=== PATIENT | female | born 1950 | race Caucasian/White ===

== ENCOUNTER 2019-03-13 18:06 | Inpatient (IN) | payer MEDICARE ==
--- NOTE | 2019-03-13 18:57 | ER Document Report ---
ED General - General Stated Complaint: FALL/BACK PAIN Time Seen by Provider: 03/13/19 18:29 - HPI Notes: 69-year-old female who has not seen a doctor in over 40 years called EMS today because she had fallen at home and she reports that she has had frequent falls recently. She was smoking in excess of a pack per day up until about a month ago when she stopped smoking. She is been experiencing generalized edema and increasing thirst. She generally does not feel well and was having some difficulty breathing today as well. - Related Data Allergies/Adverse Reactions: Iodinated Contrast Media Allergy (Verified 03/13/19 22:44) Past Medical History - General Information source: Patient, Emergency Med Personnel - Social History Smoking Status: Former Smoker Frequency of alcohol use: None Drug Abuse: None Lives with: Friend Family History: None, Reviewed & Not Pertinent - Medical History Medical History: Negative Past Surgical History: Reports: Hx Hysterectomy, Hx Tubal Ligation Review of Systems - Review of Systems Notes: Constitutional: Negative for fever. HENT: Negative for sore throat. Eyes: Negative for visual changes. Cardiovascular: Negative for chest pain. Respiratory: Shortness of breath. No sputum production. Gastrointestinal: Negative for abdominal pain, vomiting or diarrhea. Genitourinary: Reports urinary frequency. Negative for dysuria. Musculoskeletal: Low back pain secondary to recurrent falls. Skin: Negative for rash. Neurological: Negative for headaches, weakness or numbness. 10 point ROS negative except as marked above and in HPI. Physical Exam - Vital signs Vitals: Temp Resp Pulse Ox 97.6 F 16 86 L 03/13/19 18:26 03/13/19 18:26 03/13/19 18:26 Notes: GENERAL: Chronically ill appearing in no acute distress. SKIN: Generalized flushing. Stasis dermatitis over both lower legs. Old abrasions of both knees. HEAD: Normocephalic atraumatic. EYES: PERRLA. Conjunctivae and sclerae clear. EARS: CANALS AND TMS CLEAR. NOSE: CLEAR. MOUTH: Moist mucosa. Edentulous with dentures. No stridor or edema. No droo ling. NECK: Supple. No masses or thyromegaly. No adenopathy. Carotids 2+ without bruits. No JVD. BACK: Moderate dorsal kyphosis. Symmetrical with tenderness lumbar area. No step-off or crepitus. CHEST: Increased AP diameter of the chest. Respirations unlabored. Breath sounds clear and symmetrical. HEART: Regular rhythm. No murmur gallop or rub. ABDOMEN: Soft nontender without masses, organomegaly or rebound. Bowel sounds normally active. No bruits. GENITALIA: Deferred. EXTREMITIES: 3+ edema both lower legs with pitting and chronic venous stasis changes. No calf tenderness. Cap refill less than 1.5 seconds. Dorsalis pedis and posterior tibial pulses 2 + and symmetrical. NEUROLOGICAL: GCS 15. Alert and oriented x3. Fluent speech. Cranial nerves II through XII intact. Sensorimotor and cerebellar normal. Normal tone. Course - Vital Signs Vital signs: Temp Pulse Resp BP Pulse Ox 97.6 F 16 134/77 H 95 03/14/19 00:00 03/14/19 01:30 03/14/19 01:00 03/14/19 01:30 - Laboratory Result Diagrams: 03/13/19 20:00 03/13/19 18:30 Laboratory results interpreted by me: 03/13/19 03/13/19 03/13/19 18:30 18:30 18:30 Hgb Hct MCV MCH RDW Plt Count Seg Neuts % (Manual) Lymphocytes % (Manual) Abs Lymphs (Manual) D-Dimer Carbonic Acid ABG pCO2 ABG pO2 ABG HCO3 ABG Total CO2 Potassium 5.4 H BUN 51 H Est GFR ( Amer) 52 L Est GFR (MDRD) Non-Af 43 L Total Bilirubin 1.7 H Direct Bilirubin 0.8 H CK-MB (CK-2) 7.00 H NT-Pro-B Natriuret Pep 22978 H Urine Protein 100 H Urine Ketones TRACE H Urine Bilirubin SMALL H Urine Urobilinogen 4.0 H Ur Leukocyte Esterase TRACE H 03/13/19 03/13/19 03/13/19 18:30 20:00 20:50 Hgb 16.6 H Hct 50.8 H MCV 104 H MCH 33.9 H RDW 15.8 H Plt Count 123 L Seg Neuts % (Manual) 90 H Lymphocytes % (Manual) 3 L Abs Lymphs (Manual) 0.3 L D-Dimer 5.35 H Carbonic Acid 1.51 H ABG pCO2 50.1 H ABG pO2 78.2 L ABG HCO3 27.7 H ABG Total CO2 29.2 H Potassium BUN Est GFR ( Amer) Est GFR (MDRD) Non-Af Total Bilirubin Direct Bilirubin CK-MB (CK-2) NT-Pro-B Natriuret Pep Urine Protein Urine Ketones Urine Bilirubin Urine Urobilinogen Ur Leukocyte Esterase - Diagnostic Test Radiology reviewed: Reports reviewed - EKG Interpretation by Me EKG shows normal: Sinus rhythm Rate: Normal Rhythm: NSR Additional EKG results interpreted by me: 03/13/19 19:04 Incomplete right bundle branch block and left posterior fascicular block. No ol d EKG for comparison. Discharge - Discharge Clinical Impression: Acute decompensated heart failure, Pneumonia, L2 compression fracture Fall Qualifiers: Encounter type: initial encounter Qualified Code(s): W19.XXXA - Unspecified fall, initial encounter Condition: Serious Disposition: ADMITTED INPATIENT Admitting Provider: Tyler (Hospitalist)
[2019-03-13 19:07] LABS: VENOUS BLOOD BASE EXCESS 0.6 mmol/L; VENOUS BLOOD HCO3 28.6 mmol/L (20-32); VENOUS BLOOD PCO2 58.2 mmHg (35-63); VENOUS BLOOD PH 7.31 (7.30-7.42)
[2019-03-13 19:10] LABS: APPEARANCE,URINE SLIGHTLY-CLOUDY; BILIRUBIN,URINE SMALL (NEGATIVE); COLOR,URINE AMBER; GLUCOSE, URINE NEGATIVE (NEGATIVE); KETONES,URINE TRACE mg/dL (NEGATIVE); LEUKOCYTE ESTERASE,URINE TRACE (NEGATIVE); NITRITE,URINE NEGATIVE (NEGATIVE); PROTEIN,URINE 100 mg/dL (NEGATIVE); URINE SPECIFIC GRAVITY 1.025
[2019-03-13 19:13] LABS: INTERNATIONAL RATION (INR) 1.09; PROTHROMBIN TIME 14.1 SEC (11.4-15.4)
[2019-03-13 19:25] LABS: ALBUMIN 3.5 g/dL (3.5-5.0); ALKALINE PHOSPHATASE 60 U/L (38-126); ANION GAP 7 (5-19); ASPARTATE AMINO TRANSFERASE 30 U/L (14-36); BILIRUBIN,DIRECT 0.8 mg/dL (0.0-0.4); BILIRUBIN,TOTAL 1.7 mg/dL (0.2-1.3); BLOOD UREA NITROGEN 51 mg/dL (7-20); CALCIUM 9.1 mg/dL (8.4-10.2); CARBON DIOXIDE 30 mmol/L (22-30); CHLORIDE 102 mmol/L (98-107); CREATINE KINASE 63 U/L (30-135); GLUCOSE 99 mg/dL (75-110); POTASSIUM 5.4 mmol/L (3.6-5.0); TOTAL PROTEIN 7.1 g/dL (6.3-8.2)
--- NOTE | 2019-03-13 19:59 | RADIOLOGY REPORT (SQ) ---
EXAM DESCRIPTION: CHEST SINGLE VIEW COMPLETED DATE/TIME: 03/13/2019 6:53 pm REASON FOR STUDY: shortness of breath COMPARISON: None. EXAM PARAMETERS: NUMBER OF VIEWS: One view. TECHNIQUE: Single frontal radiographic view of the chest acquired. RADIATION DOSE: NA LIMITATIONS: None. FINDINGS: LUNGS AND PLEURA: Bilateral pleural effusions. Left basilar consolidation. Left apical s carring -nodularity. No pneumothorax identified. MEDIASTINUM AND HILAR STRUCTURES: Age-appropriate contour. HEART AND VASCULAR STRUCTURES: Heart normal in size. Normal vasculature. BONES: No acute findings. HARDWARE: None in the chest. OTHER: No other significant finding. IMPRESSION: Bilateral pleural effusions. Left basilar consolidation. Left apical scarring -nodular ity. No pneumothorax identified. TECHNICAL DOCUMENTATION: JOB ID: [id number] [place]-72 2010 [employer]- All Rights Reserved Reading location - IP/workstation name: [email or web address]
--- NOTE | 2019-03-13 20:03 | RADIOLOGY REPORT (SQ) ---
EXAM DESCRIPTION: L SPINE WHOLE COMPLETED DATE/TIME: 03/13/2019 7:14 pm REASON FOR STUDY: injury/fall COMPARISON: None. NUMBER OF VIEWS: Five views including obliques. TECHNIQUE: AP, lateral, oblique, and sacral radiographic images acquired of the lumbar spine. LIMITATIONS: None. FINDINGS: MINERALIZATION: Osteopenia. SEGMENTATION: Normal. No transitional anatomy. ALIGNMENT: Normal. VERTEBRAE: Minimal compression of the L2 vertebral body, age undetermined. DISCS: Multilevel disc space narrowing with osteophytes. POSTERIOR ELEMENTS: Pedicles and facets are intact. No pars defect or posterior arch defects. Facet arthropathy is present. HARDWARE: None in the spine. PARASPINAL SOFT TISSUES: Normal. PELVIS: Intact as visualized. No fractures or worrisome bone lesions. SI joints intact. OTHER: No other significant finding. IMPRESSION: Minimal compression of the L2 vertebral body, age undetermined. TECHNICAL DOCUMENTATION: JOB ID: [id number] [place]-[id number] 2010 [employer]- All Rights Reserved Reading location - IP/workstation name: [email or web address]
[2019-03-13 20:19] LABS: HEMATOCRIT 50.8 % (36.0-47.0); HEMOGLOBIN 16.6 g/dL (12.0-15.5); MEAN CORPUSCULAR HEMOGLOBIN 33.9 pg (27.0-33.4); MEAN CORPUSCULAR HGB CONC 32.7 g/dL (32.0-36.0); MEAN CORPUSCULAR VOLUME 104 fl (80-97); PLATELET COUNT 123 10^3/uL (150-450); RED CELL DISTRIBUTION WIDTH 15.8 % (11.5-14.0); WHITE BLOOD COUNT 8.7 10^3/uL (4.0-10.5)
[2019-03-13 20:37] LABS: ABSOLUTE LYMPHOCYTES# (MANUAL) 0.3 10^3/uL (0.5-4.7); ABSOLUTE MONOCYTES # (MANUAL) 0.6 10^3/uL (0.1-1.4); BASOPHILS % (MANUAL) 0 % (0-2); EOSINOPHILS % (MANUAL) 0 % (0-6); LYMPHOCYTES % (MANUAL) 3 % (13-45); MONOCYTES % (MANUAL) 7 % (3-13); SEGMENTED NEUTROPHILS % (MAN) 90 % (42-78); TOTAL CELLS COUNTED 100
[2019-03-13 20:38] LABS: ANISOCYTOSIS SLIGHT; PLATELET COMMENT ADEQUATE
[2019-03-13 21:02] LABS: ARTERIAL BLOOD BASE EXCESS 1.2 mmol/L; ARTERIAL BLOOD H2CO3 1.51 mmol/L (1.05-1.35); ARTERIAL BLOOD HCO3 27.7 mmol/L (20-24); ARTERIAL BLOOD PCO2 50.1 mmHg (35-45); ARTERIAL BLOOD PH 7.36 (7.35-7.45); ARTERIAL BLOOD PO2 78.2 mmHg (80-100); ARTERIAL BLOOD TOTAL CO2 29.2 mmol/L (21-25)
[2019-03-13 21:03] LABS: ARTERIAL BLOOD FIO2 36%
[2019-03-13] MEDS ORDERED: CEFTRIAXONE 1 GM/D5W RTU 1 GM/50 ML RTUPB IV ONE (22:22)
--- NOTE | 2019-03-13 23:04 | RADIOLOGY REPORT (SQ) ---
EXAM DESCRIPTION: CT LUMBAR SPINE WITHOUT IV CONTRAST COMPLETED DATE/TME: 03/13/2019 22:20 CLINICAL HISTORY: 69 years ,Female ,back pain. COMPARISON: None. TECHNIQUE: Contiguous axial images obtained through the lumbar spine without IV contrast. Coronal and sagittal reformatted images obtained. This exam was performed according to our department optimization program which includes automated exposure control, adjustment of the mA and/or kv according to patient size and/or use of iterative reconstruction technique. FINDINGS: Vertebral body alignment unremarkable. Fracture of L2 through the inferior aspect with mild loss of height. Fracture extends from the anterior to the posterior cortex. Moderate bilateral pleural effusions with basilar atelectasis. There is minimal retropulsion of the cortex at the level of the fracture without significant central canal narrowing. Generalized bulging of the disc at L4-5 with mild neural foraminal narrowing. Vascular calcification. Small amount of fluid in the pelvis of uncertain clinical significance. IMPRESSION: Acute fracture of the inferior aspect of L2 with mild loss of height. Bilateral pleural effusions and basilar atelectasis Fluid in the pelvis.
--- NOTE | 2019-03-14 00:06 | EKG REPORT ---
SEVERITY:- ABNORMAL ECG - SINUS RHYTHM IRBBB AND LPFB PROBABLE ANTEROSEPTAL INFARCT, AGE INDETERM : Confirmed by: Sonya Hollins MD 14-Mar-2019 00:05:24
--- NOTE | 2019-03-14 01:18 | RADIOLOGY REPORT (SQ) ---
EXAM DESCRIPTION: NM LUNG VENTILATION PERFUSION COMPLETED DATE/TME: 03/13/2019 00:00 CLINICAL HISTORY: 69 years, Female, SOB, elevated d-dimer COMPARISON: Chest x-ray from today's date RADIONUCLIDE AND DOSE: 30.9 mCi technetium 99m DTPA aerosol. Of 5 mCi technetium 99m MAA ADDITIONAL DRUGS AND DOSES: None TECHNIQUE: Following the injection of MAA and inhalation of DTPA aerosol, a VQ scan was performed RADIATION DOSE: Unknown LIMITATIONS: None. FINDINGS: Subsegmental matched defects in the upper and lower lobes bilaterally, with severely diminished radiotracer activity on ventilation images. Findings likely reflect severe air trapping/emphysema. No definitive VQ mismatch IMPRESSION: Low probability for PE copyright 2010 [employer]- All Rights Reserved
[2019-03-14] MEDS ORDERED: ASPIRIN 81 MG TABLET, CHEWABLE PO ONE (03:01)
[2019-03-14] MEDS ORDERED: ACETAMINOPHEN 325 MG TABLET PO PRN (03:07)
[2019-03-14] MEDS ORDERED: MAGNESIUM HYDROXIDE SUSP 30 ML UDCUP PO PRN (03:07)
[2019-03-14] MEDS ORDERED: ASPIRIN 325 MG TABLET PO ONE (03:07)
[2019-03-14] MEDS ORDERED: FUROSEMIDE INJ/PF 40 MG/4 ML SDV IV ONE (03:30)
[2019-03-14] MEDS ORDERED: THIAMINE HCL 100 MG, FOLIC ACID 1 MG in NORMAL SALINE 250 ML IV ONE (03:30)
[2019-03-14] MEDS ORDERED: CYANOCOBALAMIN (VITAMIN B-12) INJ 1000 MCG/1 ML VIAL IM ONE (03:30)
[2019-03-14] MEDS ORDERED: MORPHINE SULFATE 10 MG/ML INJ IV ONE (03:35)
[2019-03-14 03:39] LABS: CREATINE KINASE 45 U/L (30-135)
[2019-03-14 03:43] LABS: ABSOLUTE RETICS # 0.026 10^6/uL (0.028-0.122); RETICULOCYTE COUNT (AUTO) 0.53 % (0.66-2.85)
[2019-03-14] MEDS ORDERED: FOLIC ACID INJ 5 MG/1 ML 10 ML VIAL ONE (03:54)
[2019-03-14 03:55] LABS: URINE AMPHETAMINES SCREEN NEGATIVE; URINE BARBITURATES SCREEN NEGATIVE; URINE BENZODIAZEPINES SCREEN NEGATIVE; URINE COCAINE SCREEN NEGATIVE; URINE MARIJUANA (THC) SCREEN NEGATIVE; URINE METHADONE SCREEN NEGATIVE; URINE PHENCYCLIDINE SCREEN NEGATIVE
[2019-03-14] MEDS ORDERED: THIAMINE HCL INJ 200 MG/2 ML VIAL ONE (04:04)
[2019-03-14 04:48] LABS: FOLATE 5.17 ng/mL (>2.76)
--- NOTE | 2019-03-14 06:35 | PDOC H&P ---
History of Present Illness Admission Date/PCP: 03/14/19 03:32 Patient complains of: Falls fatigue and shortness of breath History of Present Illness: RENETTA GUTIERRES is a 69 year old female without significant past medical history though has been without medical evaluation for 40 years. She presents with 2- 1/2 weeks of fatigue and weakness unable to ambulate 20 feet without exceptional shortness of breath and several falls. In the emergency room she is found to have widespread erythroderma, anasarca, hypoxia, polycythemia, and an acute L2 fracture with height loss. She is started on oxygen and referred to the hospitalist for admission. She admits several episodes of abdominal and back pain and nausea without vomiting but no chest pain. She denies any current medications. She resides with her roommate and boyfriend. She is chest pain- free. she declares her CODE STATUS is DNR. Past Medical History Medical History: None Past Surgical History Past Surgical History: Reports: Hysterectomy, Tubal Ligation Social History Information Source: Patient Lives with: Friend Smoking Status: Former Smoker Frequency of Alcohol Use: None Drugs: None - Able to abdomen doing - Advance Directive Resuscitation Status: Do Not Resuscitate Family History Family History: Other - Unknown to the patient Parental Family History Reviewed: Yes - Unknown Children Family History Reviewed: Yes - Unknown Sibling(s) Family History Reviewed.: Yes - Unknown Medication/Allergy Allergies/Adverse Reactions: Iodinated Contrast Media Allergy (Verified 03/13/19 22:44) Review of Systems Constitutional: PRESENT: as per HPI, anorexia, fatigue, weakness, weight loss. ABSENT: fever(s) Eyes: ABSENT: visual disturbances Ears: ABSENT: hearing changes Cardiovascular: PRESENT: as per HPI, dyspnea on exertion, edema. ABSENT: chest pain, orthropnea, palpitations Respiratory: PRESENT: as per HPI, dyspnea. ABSENT: cough, hemoptysis, sputum Gastrointestinal: PRESENT: constipation. ABSENT: abdominal pain, diarrhea, hematemesis, hematochezia, nausea, vomiting Genitourinary: ABSENT: dysuria, hematuria Musculoskeletal: PRESENT: as per HPI, back pain, muscle weakness. ABSENT: joint swelling Integumentary: PRESENT: as per HPI, erythema, lesions - Widespread erythroderma. ABSENT: rash, wounds Neurological: ABSENT: abnormal gait, abnormal speech, confusion, dizziness, focal weakness, syncope Psychiatric: ABSENT: anxiety, depression, homidical ideation, suicidal ideation Endocrine: ABSENT: cold intolerance, heat intolerance, polydipsia, polyuria Hematologic/Lymphatic: ABSENT: easy bleeding, easy bruising Physical Exam Vital Signs: Temp Pulse Resp BP Pulse Ox 98.1 F 16 116/79 97 03/14/19 04:00 03/14/19 04:35 03/14/19 04:12 03/14/19 04:35 Intake & Output 03/12/19 03/13/19 03/14/19 11:59 11:59 11:59 Intake Total 301.2 Balance 301.2 Weight 52.163 kg General appearance: PRESENT: cooperative, disheveled, obese, severe distress, well-developed Head exam: PRESENT: atraumatic, normocephalic Eye exam: PRESENT: conjunctiva pink, EOMI, periorbital swelling, PERRLA. ABSENT: scleral icterus Ear exam: PRESENT: normal external ear exam Mouth exam: PRESENT: moist, tongue midline Neck exam: ABSENT: carotid bruit, JVD, lymphadenopathy, thyromegaly Respiratory exam: PRESENT: accessory muscle use, crackles, prolonged expiratory phas, symmetrical, tachypnea. ABSENT: rhonchi, stridor, wheezes Cardiovascular exam: PRESENT: +S1, +S2, systolic murmur, tachycardia Pulses: PRESENT: normal dorsalis pedis pul Vascular exam: PRESENT: normal capillary refill GI/Abdominal exam: PRESENT: normal bowel sounds, soft. ABSENT: distended, guarding, mass, organolmegaly, rebound, tenderness Rectal exam: PRESENT: deferred Extremities exam: PRESENT: full ROM, pedal edema, tenderness, +2 edema. ABSENT: calf tenderness, joint swelling Musculoskeletal exam: PRESENT: dislocation - Suspected left humeral anterior dislocation, full ROM, tenderness Neurological exam: PRESENT: alert, awake, oriented to person, oriented to place, oriented to time, oriented to situation, CN II-XII grossly intact. ABSENT: motor sensory deficit Psychiatric exam: PRESENT: appropriate affect, normal mood. ABSENT: homicidal ideation, suicidal ideation Skin exam: PRESENT: erythema, other - Widespread erythroderma, several 1 x 1 cm ulcers to the left leg. ABSENT: abrasion, cyanosis, intact, mottled, normal color, petechiae Results Laboratory Results: 03/13/19 20:00 03/13/19 18:30 03/13/19 03/13/19 03/13/19 18:30 18:30 18:30 WBC RBC Hgb Hct MCV MCH MCHC RDW Plt Count Seg Neutrophils % Retic Count (auto) Carbonic Acid HCO3/H2CO3 Ratio ABG pH ABG pCO2 ABG pO2 ABG HCO3 ABG O2 Saturation ABG Base Excess VBG pH 7.31 VBG pCO2 58.2 VBG HCO3 28.6 VBG Base Excess 0.6 FiO2 Sodium 139.4 Potassium 5.4 H Chloride 102 Carbon Dioxide 30 Anion Gap 7 BUN 51 H Creatinine 1.23 Est GFR ( Amer) 52 L Glucose 99 Lactic Acid 1.9 Calcium 9.1 Iron TIBC % Saturation Ferritin Total Bilirubin 1.7 H AST 30 Alkaline Phosphatase 60 Total Protein 7.1 Albumin 3.5 Vitamin B12 Folate TSH Urine Color Urine Appearance Urine pH Ur Specific [place] Urine Protein Urine Glucose (UA) Urine Ketones Urine Blood Urine Nitrite Ur Leukocyte Esterase Urine WBC (Auto) Urine RBC (Auto) 03/13/19 03/13/19 03/13/19 18:30 18:30 18:30 WBC RBC Hgb Hct MCV MCH MCHC RDW Plt Count Seg Neutrophils % Retic Count (auto) Carbonic Acid HCO3/H2CO3 Ratio ABG pH ABG pCO2 ABG pO2 ABG HCO3 ABG O2 Saturation ABG Base Excess VBG pH VBG pCO2 VBG HCO3 VBG Base Excess FiO2 Sodium Potassium Chloride Carbon Dioxide Anion Gap BUN Creatinine Est GFR ( Amer) Glucose Lactic Acid Calcium Iron 26.0 L TIBC 201 L % Saturation 13 Ferritin 114.00 Total Bilirubin AST Alkaline Phosphatase Total Protein Albumin Vitamin B12 193.0 L Folate 5.17 TSH 5.66 H Urine Color HUA Urine Appearance SLIGHTLY-CLOUDY Urine pH 5.0 Ur Specific [place] 1.025 Urine Protein 100 H Urine Glucose (UA) NEGATIVE Urine Ketones TRACE H Urine Blood NEGATIVE Urine Nitrite NEGATIVE Ur Leukocyte Esterase TRACE H Urine WBC (Auto) 5 Urine RBC (Auto) 2 03/13/19 03/13/19 03/13/19 20:00 20:00 20:50 WBC 8.7 RBC 4.90 Hgb 16.6 H Hct 50.8 H MCV 104 H MCH 33.9 H MCHC 32.7 RDW 15.8 H Plt Count 123 L Seg Neutrophils % Not Reportable Retic Count (auto) 0.53 L Carbonic Acid 1.51 H HCO3/H2CO3 Ratio 18:1 ABG pH 7.36 ABG pCO2 50.1 H ABG pO2 78.2 L ABG HCO3 27.7 H ABG O2 Saturation 95.0 ABG Base Excess 1.2 VBG pH VBG pCO2 VBG HCO3 VBG Base Excess FiO2 36% Sodium Potassium Chloride Carbon Dioxide Anion Gap BUN Creatinine Est GFR ( Amer) Glucose Lactic Acid Calcium Iron TIBC % Saturation Ferritin Total Bilirubin AST Alkaline Phosphatase Total Protein Albumin Vitamin B12 Folate TSH Urine Color Urine Appearance Urine pH Ur Specific [place] Urine Protein Urine Glucose (UA) Urine Ketones Urine Blood Urine Nitrite Ur Leukocyte Esterase Urine WBC (Auto) Urine RBC (Auto) 03/13/19 03/13/19 03/13/19 18:30 18:30 18:30 Creatine Kinase 63 45 CK-MB (CK-2) 7.00 H Troponin I NT-Pro-B Natriuret Pep 11113 H 03/14/19 03/14/19 02:15 02:15 Creatine Kinase CK-MB (CK-2) 4.67 H Troponin I 0.591 Cancelled NT-Pro-B Natriuret Pep Impressions: Lung Scan-VQ NM 03/13/19 00:00 IMPRESSION: Low probability for PE copyright 2011 [employer]- All Rights Reserved Chest X-Ray 03/13/19 18:40 IMPRESSION: Bilateral pleural effusions. Left basilar consolidation. Left apical scarring -nodularity. No pneumothorax identified. Lumbar Spine X-Ray 03/13/19 18:49 IMPRESSION: Minimal compression of the L2 vertebral body, age undetermined. Lumbar Spine CT 03/13/19 22:20 IMPRESSION: Acute fracture of the inferior aspect of L2 with mild loss of height. Bilateral pleural effusions and basilar atelectasis Fluid in the pelvis. Assessment and Plan - Diagnosis (1) Compression fracture of L2 Is this a current diagnosis for this admission?: Yes Plan: Symptomatic management, consider pain management consult (2) Polycythemia Is this a current diagnosis for this admission?: Yes Plan: Follow-up anemia labs, EPO level, hematology consult (3) Acute decompensated heart failure Is this a current diagnosis for this admission?: Yes Plan: Trial loop diuretic, follow-up 2D echo (4) Elevated troponin Is this a current diagnosis for this admission?: Yes Plan: Likely subacute infarct, trend troponins. (5) Fall Qualifiers: Encounter type: initial encounter Qualified Code(s): W19.XXXA - Unspecified fall, initial encounter Is this a current diagnosis for this admission?: Yes Plan: Orthostatic blood pressures, physical therapy evaluation. - Time Time Spent with patient: 25-34 minutes - Inpatient Certification Medical Necessity: Need Close Monitoring Due to Risk of Patient Decompensation
--- NOTE | 2019-03-14 07:14 | ADVANCED CARE ---
- Diagnosis (1) Compression fracture of L2 Diagnosis Current: Yes (2) Polycythemia Diagnosis Current: Yes (3) Acute decompensated heart failure Diagnosis Current: Yes (4) Elevated troponin Diagnosis Current: Yes (5) Fall Diagnosis Current: Yes Attendance: Physician nurse and patient Resuscitation Status: Do Not Resuscitate Discussion: Patient does not wish CPR, cardioversion or intubation. Care Planning Goals: Dependent on work-up results Time Spent: 15 minutes
[2019-03-14] MEDS: HEPARIN SOD (PORCINE) 5,000 UNIT/ML 1 ML VIAL SUBCUT SCH ×3 (07:36→21:51)
[2019-03-14] MEDS: DOCUSATE SODIUM 100 MG CAPSULE PO SCH (10:24)
[2019-03-14] MEDS: POTASSIUM CHLORIDE 10 MEQ CAPSULE.ER PO SCH ×2 (10:49→21:52)
[2019-03-14 10:56] LABS: CREATINE KINASE MB 4.28 ng/mL (<4.55)
[2019-03-14 11:00] LABS: TROPONIN I 0.472 ng/mL
[2019-03-14 11:59] LABS: ARTERIAL BLOOD BASE EXCESS 5.7 mmol/L; ARTERIAL BLOOD H2CO3 1.62 mmol/L (1.05-1.35); ARTERIAL BLOOD HCO3 32.3 mmol/L (20-24); ARTERIAL BLOOD O2 SATURATION 94.8 % (94-98); ARTERIAL BLOOD PCO2 53.7 mmHg (35-45); ARTERIAL BLOOD PO2 74.7 mmHg (80-100); ARTERIAL BLOOD TOTAL CO2 33.9 mmol/L (21-25)
[2019-03-14 12:00] LABS: ARTERIAL BLOOD FIO2 3.5L
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
--- NOTE | 2019-03-14 12:56 | PDOC PROGRESS REPORT ---
Subjective Progress Note for:: 03/14/19 Subjective:: Patient has a significant amount of back pain. She states she has not been able to eat because the room is too crowded. She reports that she has ordered lunch twice but just cannot get to it. She certainly appears to be in a lot of discomfort. She denies being short of breath. Reason For Visit: ACUTE ON CHRONIC COPD, ACUTE HEART FAILURE, Physical Exam Vital Signs: Temp Pulse Resp BP Pulse Ox 98.2 F 97 18 122/74 96 03/14/19 06:46 03/14/19 07:00 03/14/19 06:46 03/14/19 06:46 03/14/19 12:07 Intake & Output 03/13/19 03/14/19 03/15/19 06:59 06:59 06:59 Intake Total 361.2 Balance 361.2 Weight 55 kg General appearance: PRESENT: cooperative, disheveled, well-developed Head exam: PRESENT: atraumatic, normocephalic Eye exam: PRESENT: conjunctiva pink. ABSENT: periorbital swelling, scleral icterus Ear exam: PRESENT: normal external ear exam. ABSENT: bleeding, drainage Respiratory exam: PRESENT: clear to auscultation christopher, symmetrical, unlabored, other - Poor inspiratory effort. ABSENT: rales, rhonchi, tachypnea, wheezes Cardiovascular exam: PRESENT: RRR, +S1, +S2. ABSENT: diastolic murmur, systolic murmur GI/Abdominal exam: PRESENT: diminished bowel sounds, soft. ABSENT: tenderness Extremities exam: PRESENT: +2 edema Neurological exam: PRESENT: alert, awake, oriented to person, oriented to place, oriented to situation, CN II-XII grossly intact Psychiatric exam: PRESENT: anxious, flat affect. ABSENT: agitated Focused psych exam: ABSENT: delusional, restlessness Skin exam: PRESENT: erythema - Diffuse redness systemically Results Laboratory Results: 03/13/19 20:00 03/13/19 18:30 03/13/19 03/13/19 03/13/19 18:30 18:30 18:30 WBC RBC Hgb Hct MCV MCH MCHC RDW Plt Count Seg Neutrophils % Retic Count (auto) Carbonic Acid HCO3/H2CO3 Ratio ABG pH ABG pCO2 ABG pO2 ABG HCO3 ABG O2 Saturation ABG Base Excess VBG pH 7.31 VBG pCO2 58.2 VBG HCO3 28.6 VBG Base Excess 0.6 FiO2 Sodium 139.4 Potassium 5.4 H Chloride 102 Carbon Dioxide 30 Anion Gap 7 BUN 51 H Creatinine 1.23 Est GFR ( Amer) 52 L Glucose 99 Lactic Acid 1.9 Calcium 9.1 Iron TIBC % Saturation Ferritin Total Bilirubin 1.7 H AST 30 Alkaline Phosphatase 60 Total Protein 7.1 Albumin 3.5 Vitamin B12 Folate TSH Urine Color Urine Appearance Urine pH Ur Specific [place] Urine Protein Urine Glucose (UA) Urine Ketones Urine Blood Urine Nitrite Ur Leukocyte Esterase Urine WBC (Auto) Urine RBC (Auto) 03/13/19 03/13/19 03/13/19 18:30 18:30 18:30 WBC RBC Hgb Hct MCV MCH MCHC RDW Plt Count Seg Neutrophils % Retic Count (auto) Carbonic Acid HCO3/H2CO3 Ratio ABG pH ABG pCO2 ABG pO2 ABG HCO3 ABG O2 Saturation ABG Base Excess VBG pH VBG pCO2 VBG HCO3 VBG Base Excess FiO2 Sodium Potassium Chloride Carbon Dioxide Anion Gap BUN Creatinine Est GFR ( Amer) Glucose Lactic Acid Calcium Iron 26.0 L TIBC 201 L % Saturation 13 Ferritin 114.00 Total Bilirubin AST Alkaline Phosphatase Total Protein Albumin Vitamin B12 193.0 L Folate 5.17 TSH 5.66 H Urine Color HUA Urine Appearance SLIGHTLY-CLOUDY Urine pH 5.0 Ur Specific [place] 1.025 Urine Protein 100 H Urine Glucose (UA) NEGATIVE Urine Ketones TRACE H Urine Blood NEGATIVE Urine Nitrite NEGATIVE Ur Leukocyte Esterase TRACE H Urine WBC (Auto) 5 Urine RBC (Auto) 2 03/13/19 03/13/19 03/13/19 20:00 20:00 20:50 WBC 8.7 RBC 4.90 Hgb 16.6 H Hct 50.8 H MCV 104 H MCH 33.9 H MCHC 32.7 RDW 15.8 H Plt Count 123 L Seg Neutrophils % Not Reportable Retic Count (auto) 0.53 L Carbonic Acid 1.51 H HCO3/H2CO3 Ratio 18:1 ABG pH 7.36 ABG pCO2 50.1 H ABG pO2 78.2 L ABG HCO3 27.7 H ABG O2 Saturation 95.0 ABG Base Excess 1.2 VBG pH VBG pCO2 VBG HCO3 VBG Base Excess FiO2 36% Sodium Potassium Chloride Carbon Dioxide Anion Gap BUN Creatinine Est GFR ( Amer) Glucose Lactic Acid Calcium Iron TIBC % Saturation Ferritin Total Bilirubin AST Alkaline Phosphatase Total Protein Albumin Vitamin B12 Folate TSH Urine Color Urine Appearance Urine pH Ur Specific [place] Urine Protein Urine Glucose (UA) Urine Ketones Urine Blood Urine Nitrite Ur Leukocyte Esterase Urine WBC (Auto) Urine RBC (Auto) 03/14/19 11:40 WBC RBC Hgb Hct MCV MCH MCHC RDW Plt Count Seg Neutrophils % Retic Count (auto) Carbonic Acid 1.62 H HCO3/H2CO3 Ratio 19:1 ABG pH 7.40 ABG pCO2 53.7 H ABG pO2 74.7 L ABG HCO3 32.3 H ABG O2 Saturation 94.8 ABG Base Excess 5.7 VBG pH VBG pCO2 VBG HCO3 VBG Base Excess FiO2 3.5L Sodium Potassium Chloride Carbon Dioxide Anion Gap BUN Creatinine Est GFR ( Amer) Glucose Lactic Acid Calcium Iron TIBC % Saturation Ferritin Total Bilirubin AST Alkaline Phosphatase Total Protein Albumin Vitamin B12 Folate TSH Urine Color Urine Appearance Urine pH Ur Specific [place] Urine Protein Urine Glucose (UA) Urine Ketones Urine Blood Urine Nitrite Ur Leukocyte Esterase Urine WBC (Auto) Urine RBC (Auto) 03/13/19 03/13/19 03/13/19 18:30 18:30 18:30 Creatine Kinase 63 45 CK-MB (CK-2) 7.00 H Troponin I NT-Pro-B Natriuret Pep [id number] H 03/14/19 03/14/19 03/14/19 02:15 02:15 09:45 Creatine Kinase 39 CK-MB (CK-2) 4.67 H Troponin I 0.591 Cancelled NT-Pro-B Natriuret Pep 03/14/19 09:45 Creatine Kinase CK-MB (CK-2) 4.28 Troponin I 0.472 NT-Pro-B Natriuret Pep Impressions: Lung Scan-VQ NM 03/13/19 00:00 IMPRESSION: Low probability for PE copyright 2011 [employer]- All Rights Reserved Chest X-Ray 03/13/19 18:40 IMPRESSION: Bilateral pleural effusions. Left basilar consolidation. Left apical scarring -nodularity. No pneumothorax identified. Lumbar Spine X-Ray 03/13/19 18:49 IMPRESSION: Minimal compression of the L2 vertebral body, age undetermined. Lumbar Spine CT 03/13/19 22:20 IMPRESSION: Acute fracture of the inferior aspect of L2 with mild loss of height. Bilateral pleural effusions and basilar atelectasis Fluid in the pelvis. Assessment and Plan - Diagnosis (1) Compression fracture of L2 Qualifiers: Encounter type: subsequent encounter Is this a current diagnosis for this admission?: Yes Plan: 03/14/2019-the patient sustained an acute L2 fracture. I will investigate the possibility of kyphoplasty tomorrow. Symptomatic pain management at this time. (2) Polycythemia Is this a current diagnosis for this admission?: Yes Plan: 03/14/2019-secondary to hypoxemia. She has a history of smoking. Certainly there could be underlying chronic obstructive pulmonary disease. At this point, hematology will be evaluating the patient. Usually a hemoglobin at this level does not require phlebotomy. (3) Acute decompensated heart failure Is this a current diagnosis for this admission?: Yes Plan: 03/14/2019-continue diuretic therapy with potassium supplementation. Await results of echocardiogram. Per nursing the edema is improved. We will continue to monitor her markedly elevated brain natruretic peptide as this may give us some indicator of the improvement of her heart failure. (4) Elevated troponin Is this a current diagnosis for this admission?: Yes Plan: 03/14/2019-likely a subacute non-ST elevated myocardial infarction. Will trend troponins. Conservative therapy including aspirin, statin therapy and possibly beta-efrain and MELANIE inhibitor. (5) Fall Qualifiers: Encounter type: initial encounter Qualified Code(s): W19.XXXA - Unspecified fall, initial encounter Is this a current diagnosis for this admission?: Yes Plan: 03/14/2019-unsure of the etiology of the fall. Physical therapy will be ass essing the patient. (6) Erythroderma Is this a current diagnosis for this admission?: Yes Plan: 03/14/2019-no clear etiology of the erythroderma. Will investigate further. She does not take many medications and it is not likely an adverse reaction. (7) Acute respiratory failure with hypoxia and hypercapnia Is this a current diagnosis for this admission?: Yes Plan: 03/14/2019-this is likely a component of her congestive failure with possible underlying chronic obstructive pulmonary disease. With her acute illness PFTs would not be very helpful. We will treat for the failure and consider nebulizer treatments. The patient had BiPAP ordered but has refused to wear it thus far. I will continue to try and encourage compliance as it will bring her PCO2 down. (8) Decubitus ulcer of calf, stage 3 Qualifiers: Laterality: unspecified laterality Qualified Code(s): L89.893 - Pressure u lcer of other site, stage 3 Is this a current diagnosis for this admission?: Yes Plan: 03/14/2019-the patient actually has bilateral ulcers on her calves. This is likely from being in a recliner with direct pressure on the calfs from the leg rest. We will cover the lesions with ABD pads for today to try to assess the volume of fluid loss. Tomorrow we will likely start applying Santyl with daily dressing changes. (9) Hyperkalemia Is this a current diagnosis for this admission?: Yes Plan: 03/14/2019-I am unsure of the etiology of her hyperkalemia. He could be due to volume depletion. Her serum creatinine is not markedly elevated. With the diuretic therapy I expect her serum potassium to decrease. There is always the possibility of hemolyzed blood sample which would give an abnormally high serum potassium. I will repeat the electrolytes in the morning and determine the appropriate course of treatment. - Time Time Spent with patient: 25-34 minutes Medications reviewed and adjusted accordingly: Yes
[2019-03-14 16:02] LABS: CREATINE KINASE MB 3.04 ng/mL (<4.55); TROPONIN I 0.476 ng/mL
--- NOTE | 2019-03-14 16:19 | EKG REPORT ---
SEVERITY:- ABNORMAL ECG - SINUS RHYTHM IRBBB AND LPFB PROBABLE ANTEROSEPTAL INFARCT, AGE INDETERM : Confirmed by: Sonya Hollins MD 14-Mar-2019 16:18:09
[2019-03-14] MEDS: ATORVASTATIN CALCIUM 20 MG TABLET PO SCH (21:55)
[2019-03-14] MEDS: ASPIRIN 81 MG TABLET, ENT COATED PO SCH (21:55)
[2019-03-15] MEDS: MORPHINE SULFATE 10 MG/ML INJ IV PRN ×6 (02:00→22:36)
[2019-03-15] MEDS: HEPARIN SOD (PORCINE) 5,000 UNIT/ML 1 ML VIAL SUBCUT SCH ×3 (06:00→21:18)
--- NOTE | 2019-03-15 08:07 | PDOC PROGRESS REPORT ---
Subjective Progress Note for:: 03/15/19 Subjective:: Patient is a bit more pleasant this morning. She states that her breathing is "about the same." The pain medications are working for her back pain. She is still not able to move very much. She is asking for more food to eat. ROS: No chest pain. Legs are still painful and swollen. Reason For Visit: ACUTE ON CHRONIC COPD, ACUTE HEART FAILURE, Physical Exam Vital Signs: Temp Pulse Resp BP Pulse Ox 97.9 F 85 18 110/59 L 97 03/15/19 04:41 03/15/19 07:00 03/15/19 04:41 03/15/19 04:41 03/15/19 04:41 Intake & Output 03/14/19 03/15/19 03/16/19 06:59 06:59 06:59 Intake Total 361.2 480 Balance 361.2 480 Weight 55 kg 55 kg General appearance: PRESENT: mild distress, thin Head exam: PRESENT: normocephalic Respiratory exam: PRESENT: decreased breath sounds Cardiovascular exam: PRESENT: RRR GI/Abdominal exam: PRESENT: soft. ABSENT: tenderness Extremities exam: PRESENT: +1 edema Neurological exam: PRESENT: alert, awake, oriented to person, oriented to place, oriented to situation Psychiatric exam: PRESENT: appropriate affect Skin exam: PRESENT: other - Erythema bilateral legs. Still with weaping wound left calf. Results Laboratory Results: 03/14/19 11:40 Carbonic Acid 1.62 H HCO3/H2CO3 Ratio 19:1 ABG pH 7.40 ABG pCO2 53.7 H ABG pO2 74.7 L ABG HCO3 32.3 H ABG O2 Saturation 94.8 ABG Base Excess 5.7 FiO2 3.5L 03/13/19 03/13/19 03/13/19 18:30 18:30 18:30 Creatine Kinase 63 45 CK-MB (CK-2) 7.00 H Troponin I NT-Pro-B Natriuret Pep [id number] H 03/14/19 03/14/19 03/14/19 02:15 02:15 09:45 Creatine Kinase 39 CK-MB (CK-2) 4.67 H Troponin I 0.591 Cancelled NT-Pro-B Natriuret Pep 03/14/19 03/14/19 03/14/19 09:45 15:12 15:12 Creatine Kinase 32 CK-MB (CK-2) 4.28 3.04 Troponin I 0.472 0.476 NT-Pro-B Natriuret Pep Impressions: Lung Scan-VQ NM 03/13/19 00:00 IMPRESSION: Low probability for PE copyright 2011 [employer]- All Rights Reserved Chest X-Ray 03/13/19 18:40 IMPRESSION: Bilateral pleural effusions. Left basilar consolidation. Left apical scarring -nodularity. No pneumothorax identified. Lumbar Spine X-Ray 03/13/19 18:49 IMPRESSION: Minimal compression of the L2 vertebral body, age undetermined. Lumbar Spine CT 03/13/19 22:20 IMPRESSION: Acute fracture of the inferior aspect of L2 with mild loss of height. Bilateral pleural effusions and basilar atelectasis Fluid in the pelvis. Assessment & Plan - Diagnosis (1) Compression fracture of L2 Qualifiers: Encounter type: subsequent encounter Is this a current diagnosis for this admission?: Yes Plan: Discussed possibility of Kyphoplasty with Dr. Stephenson yesterday. Currently, not a candidate due to other medical problems, but hopefully, in the next few days, this can be accomplished. Until then, continue adequate pain control. Work toward ambulation. (2) Polycythemia Is this a current diagnosis for this admission?: Yes Plan: Most likely secondary to chronic hypoxia. Not sure what has caused her chronic hypoxia, although she is a long-time smoker. No evidence of PE. Some heart failure thought to be contributing. Once she is a bit more comfortable, I would recommend CT chest, as she is at high risk for lung cancer and CXR did show some abnormalities. Await repeat CBC today. Will continue to follow. - Time Time Spent with patient: Less than 15 minutes
[2019-03-15 08:18] LABS: ANION GAP 3 (5-19); BLOOD UREA NITROGEN 33 mg/dL (7-20); CALCIUM 8.2 mg/dL (8.4-10.2); CARBON DIOXIDE 34 mmol/L (22-30); CHLORIDE 102 mmol/L (98-107); GLUCOSE 73 mg/dL (75-110); POTASSIUM 4.5 mmol/L (3.6-5.0)
[2019-03-15 08:20] LABS: ABSOLUTE EOSINOPHILS # (AUTO) 0.1 10^3/uL (0.0-0.6); ABSOLUTE LYMPHOCYTES (AUTO) 0.5 10^3/uL (0.5-4.7); ABSOLUTE MONOCYTES (AUTO) 0.7 10^3/uL (0.1-1.4); ABSOLUTE NEUT (AUTO) 5.8 10^3/uL (1.7-8.2); BASOPHILS % (AUTO) 0.4 % (0-2); EOSINOPHILS % (AUTO) 0.9 % (0-6); HEMATOCRIT 45.1 % (36.0-47.0); LYMPHOCYTES % (AUTO) 7.3 % (13-45); MEAN CORPUSCULAR HGB CONC 33.3 g/dL (32.0-36.0); MEAN CORPUSCULAR VOLUME 102 fl (80-97); MONOCYTES % (AUTO) 9.2 % (3-13); PLATELET COUNT 111 10^3/uL (150-450); RED BLOOD COUNT 4.41 10^6/uL (3.72-5.28); RED CELL DISTRIBUTION WIDTH 15.2 % (11.5-14.0); SEGMENTED NEUTROPHILS % (AUTO) 82.2 % (42-78); TOTAL CELLS COUNTED % (AUTO) 100 %; WHITE BLOOD COUNT 7.1 10^3/uL (4.0-10.5)
[2019-03-15] MEDS: THIAMINE HCL 100 MG, FOLIC ACID 1 MG in NORMAL SALINE 250 ML IV SCH (09:43)
[2019-03-15] MEDS: CYANOCOBALAMIN (VITAMIN B-12) 1,000 MCG TABLET PO SCH (09:43)
[2019-03-15] MEDS: DOCUSATE SODIUM 100 MG CAPSULE PO SCH (09:43)
[2019-03-15] MEDS: FUROSEMIDE INJ/PF 40 MG/4 ML SDV IV SCH (09:43)
[2019-03-15] MEDS ORDERED: CYANOCOBALAMIN (VITAMIN B-12) INJ 1000 MCG/1 ML VIAL IM SCH (10:00)
[2019-03-15] MEDS: POTASSIUM CHLORIDE 20 MEQ PACKET PO SCH ×2 (10:27→22:36)
--- NOTE | 2019-03-15 12:26 | XCELERA REPORT ---
[address] [address] Transthoracic Echocardiogram Report Name: RENETTA GUTIERRES Age: 69 yrs Gender: Female : 1950 Patient Status: Inpatient Patient Location: [facility]^A Study Date: 03/14/2019 04:08 PM Height: 64 in Weight: 115 lb BSA: 1.5 m2 Procedure: A two-dimensional transthoracic echocardiogram with color flow and Doppler was performed. Study Quality: Fair. Reason For Study: systolic murmur acute chf History: systolic murmur acute chf. Ordering Physician: CATHIE OWUSU Performed By: Ilene Alamo Interpretation Summary The left ventricle is normal in size. There is normal left ventricular wall thickness. LV EF is 60% Left ventricular systolic function is normal. Doppler measurements suggest impaired left ventricular relaxation, which is associated with grade I/IV or mild diastolic dysfunction The right ventricle is moderately dilated. The right atrium is mild to moderately dilated. The left atrial size is normal. No ASD,VSD,or PFO seen. There is no evidence of mitral valve prolapse. There is no vegetation seen on the mitral valve. There is no mitral valve stenosis. There is no mitral regurgitation noted. There is no aortic valvular vegetation. There is aortic sclerosis without aortic stenosis. There is no LVOT obstruction. No aortic regurgitation is present. There is no tricuspid stenosis. There is a moderate to severe amount of tricuspid regurgitation There is servere pulmonary hypertension by echo RVSP is 62 to 67 mm of Hg ,with RA mean of 10 to 15. There is no pulmonic valvular stenosis. There is a trace amount of pulmonic regurgitation The inferior vena cava appeared normal and decreased < 50% with respiration (RAP 10-15 mmHg) There is no pericardial effusion. Large left pleural effusion. MMode/2D Measurements & Calculations RVDd: 4.1 cm LVIDd: 4.2 cm FS: 29.6 % Ao root diam: 2.8 cm IVSd: 0.77 cm LVIDs: 3.0 cm EDV(Teich): 80.3 ml Ao root area: 6.0 cm2 LVPWd: 0.87 cm ESV(Teich): 34.5 ml EF(Teich): 57.0 % Doppler Measurements & Calculations MV E max arleth: MV dec slope: Ao V2 max: LV V1 max P.9 cm/sec 336.0 cm/sec2 111.4 cm/sec 3.9 mmHg MV A max arleth: MV dec time: 0.18 secAo max PG: LV V1 max: 92.3 cm/sec 5.0 mmHg 98.7 cm/sec MV E/A: 0.67 PA V2 max: TR max arleth: 80.1 cm/sec 356.1 cm/sec PA max P.6 mmHg TR max P.6 mmHg Left Ventricle The left ventricle is normal in size. There is normal left ventricular wall thickness. LV EF is 60%. Left ventricular systolic function is normal. Doppler measurements suggest impaired left ventricular relaxation, which is associated with grade I/IV or mild diastolic dysfunction. Right Ventricle The right ventricle is moderately dilated. The right ventricular systolic function is moderately reduced. Atria The right atrium is mild to moderately dilated. The left atrial size is normal. No ASD,VSD,or PFO seen. Mitral Valve There is no evidence of mitral valve prolapse. There is no vegetation seen on the mitral valve. There is no mitral valve stenosis. There is no mitral regurgitation noted. Aortic Valve There is no aortic valvular vegetation. There is no aortic valve stenosis. There is aortic sclerosis without aortic stenosis. There is no LVOT obstruction. No aortic regurgitation is present. Tricuspid Valve There is no tricuspid stenosis. There is a moderate to severe amount of tricuspid regurgitation. There is servere pulmonary hypertension by echo. RVSP is 62 to 67 mm of Hg ,with RA mean of 10 to 15. Pulmonic Valve There is no pulmonic valvular stenosis. There is a trace amount of pulmonic regurgitation. Great Vessels The aortic root is normal size. The inferior vena cava appeared normal and decreased < 50% with respiration (RAP 10-15 mmHg). Effusions There is no pericardial effusion. Large left pleural effusion. : CATHIE OWUSU Lakshmi
--- NOTE | 2019-03-15 15:33 | PDOC PROGRESS REPORT ---
Subjective Progress Note for:: 03/15/19 Subjective:: Patient actually in better spirits today. Her breathing appears to be more comfortable. She has less edema. She still has back pain. Reason For Visit: ACUTE ON CHRONIC COPD, ACUTE HEART FAILURE, Physical Exam Vital Signs: Temp Pulse Resp BP Pulse Ox 98.4 F 81 20 112/56 L 100 03/15/19 11:05 03/15/19 14:00 03/15/19 11:05 03/15/19 11:05 03/15/19 11:05 Intake & Output 03/14/19 03/15/19 03/16/19 06:59 06:59 06:59 Intake Total 361.2 480 731.2 Output Total 500 Balance 361.2 480 231.2 Weight 55 kg 55 kg General appearance: PRESENT: no acute distress, cooperative, thin, well- developed Head exam: PRESENT: atraumatic, normocephalic Eye exam: PRESENT: conjunctiva pink. ABSENT: scleral icterus Ear exam: PRESENT: normal external ear exam. ABSENT: bleeding, drainage Mouth exam: PRESENT: moist, tongue midline Respiratory exam: PRESENT: rales - Right base, symmetrical, unlabored, other - Decreased breath sounds left base. ABSENT: rhonchi, wheezes Cardiovascular exam: PRESENT: diastolic murmur, RRR, +S1, +S2 GI/Abdominal exam: PRESENT: normal bowel sounds, soft. ABSENT: distended, tenderness Rectal exam: PRESENT: deferred Extremities exam: ABSENT: pedal edema Musculoskeletal exam: PRESENT: normal inspection Neurological exam: PRESENT: alert, awake, oriented to person, oriented to place, oriented to time, oriented to situation, CN II-XII grossly intact Psychiatric exam: PRESENT: appropriate affect. ABSENT: agitated, anxious Focused psych exam: ABSENT: delusional, restlessness Skin exam: PRESENT: erythema Results Laboratory Results: 03/15/19 04:35 03/15/19 04:35 03/15/19 03/15/19 04:35 04:35 WBC 7.1 RBC 4.41 Hgb 15.0 Hct 45.1 MCV 102 H MCH 34.0 H MCHC 33.3 RDW 15.2 H Plt Count 111 L Seg Neutrophils % 82.2 H Sodium 139.2 Potassium 4.5 Chloride 102 Carbon Dioxide 34 H Anion Gap 3 L BUN 33 H Creatinine 0.61 Est GFR ( Amer) > 60 Glucose 73 L Calcium 8.2 L 03/13/19 03/13/19 03/13/19 18:30 18:30 18:30 Creatine Kinase 63 45 CK-MB (CK-2) 7.00 H Troponin I NT-Pro-B Natriuret Pep 20031 H 03/14/19 03/14/19 03/14/19 02:15 02:15 09:45 Creatine Kinase 39 CK-MB (CK-2) 4.67 H Troponin I 0.591 Cancelled NT-Pro-B Natriuret Pep 03/14/19 03/14/19 03/14/19 09:45 15:12 15:12 Creatine Kinase 32 CK-MB (CK-2) 4.28 3.04 Troponin I 0.472 0.476 NT-Pro-B Natriuret Pep Impressions: Lung Scan-VQ NM 03/13/19 00:00 IMPRESSION: Low probability for PE copyright 2010 [employer]- All Rights Reserved Chest X-Ray 03/13/19 18:40 IMPRESSION: Bilateral pleural effusions. Left basilar consolidation. Left apical scarring -nodularity. No pneumothorax identified. Lumbar Spine X-Ray 03/13/19 18:49 IMPRESSION: Minimal compression of the L2 vertebral body, age undetermined. Lumbar Spine CT 03/13/19 22:20 IMPRESSION: Acute fracture of the inferior aspect of L2 with mild loss of height. Bilateral pleural effusions and basilar atelectasis Fluid in the pelvis. Assessment and Plan - Diagnosis (1) Compression fracture of L2 Qualifiers: Encounter type: subsequent encounter Is this a current diagnosis for this admission?: Yes Plan: 03/14/2019-the patient sustained an acute L2 fracture. I will investigate the possibility of kyphoplasty tomorrow. Symptomatic pain management at this time. 03/15/2019-pain appears to be improved. Once the pleural effusion is addressed then I will try and arrange kyphoplasty. (2) Polycythemia Is this a current diagnosis for this admission?: Yes Plan: 03/14/2019-secondary to hypoxemia. She has a history of smoking. Certainly there could be underlying chronic obstructive pulmonary disease. At this point, hematology will be evaluating the patient. Usually a hemoglobin at this level does not require phlebotomy. 03/15/2019-we will continue to monitor hemoglobin. This morning it was back in the normal range at 15. (3) Acute decompensated heart failure Is this a current diagnosis for this admission?: Yes Plan: 03/14/2019-continue diuretic therapy with potassium supplementation. Await results of echocardiogram. Per nursing the edema is improved. We will continue to monitor her markedly elevated brain natruretic peptide as this may give us some indicator of the improvement of her heart failure. 03/15/2019-the patient in fact has an ejection fraction of 60% by echocardiogram. She has grade 1/4 diastolic dysfunction. The primary issue seems to be severe pulmonary hypertension with moderate to severe tricuspid regurgitation. Continue current medications. (4) Elevated troponin Is this a current diagnosis for this admission?: Yes Plan: 03/14/2019-likely a subacute non-ST elevated myocardial infarction. Will trend troponins. Conservative therapy including aspirin, statin therapy and possibly beta-efrain and MELANIE inhibitor. 03/15/2019-troponins seem to be stable between 0.04 and 0.05. This is very likely her baseline. It is probable that there was no acute infarct at this time. (5) Fall Qualifiers: Encounter type: initial encounter Qualified Code(s): W19.XXXA - Unspecified fall, initial encounter Is this a current diagnosis for this admission?: Yes Plan: 03/14/2019-unsure of the etiology of the fall. Physical therapy will be assessing the patient. 03/15/2019-part of her instability is severe dyspnea with exertion. Tomorrow she will have a pleurocentesis and this should help. Physical therapy is working with the patient as well. (6) Erythroderma Is this a current diagnosis for this admission?: Yes Plan: 03/14/2019-no clear etiology of the erythroderma. Will investigate further. She does not take many medications and it is not likely an adverse reaction. 03/15/2019-still unsure of the exact cause of the erythroderma. We will contin ue to investigate. (7) Acute respiratory failure with hypoxia and hypercapnia Is this a current diagnosis for this admission?: Yes Plan: 03/14/2019-this is likely a component of her congestive failure with possible underlying chronic obstructive pulmonary disease. With her acute illness PFTs would not be very helpful. We will treat for the failure and consider nebulizer treatments. The patient had BiPAP ordered but has refused to wear it thus far. I will continue to try and encourage compliance as it will bring her PCO2 down. 03/15/2019-the large pleural effusion is the most likely reason for worsening of her respiratory status. That and the combination of COPD are the root cause. She is stable off of BiPAP at this time. Her breathing should improve significantly after the thoracentesis. Pulmonary function testing to assess for COPD is inappropriate at this time due to the presence of the large pleural effusion. Consider PFTs when the patient stabilizes. (8) Decubitus ulcer of calf, stage 3 Qualifiers: Laterality: unspecified laterality Qualified Code(s): L89.893 - Pressure ulcer of other site, stage 3 Is this a current diagnosis for this admission?: Yes Plan: 03/14/2019-the patient actually has bilateral ulcers on her calves. This is likely from being in a recliner with direct pressure on the calfs from the leg rest. We will cover the lesions with ABD pads for today to try to assess the volume of fluid loss. Tomorrow we will likely start applying Santyl with daily dressing changes. 03/15/2019-continue conservative care. (9) Hyperkalemia Is this a current diagnosis for this admission?: Yes Plan: 03/14/2019-I am unsure of the etiology of her hyperkalemia. He could be due to volume depletion. Her serum creatinine is not markedly elevated. With the diuretic therapy I expect her serum potassium to decrease. There is always the possibility of hemolyzed blood sample which would give an abnormally high serum potassium. I will repeat the electrolytes in the morning and determine the appropriate course of treatment. 03/15/2019-potassium is back to the normal range. (10) Pleural effusion, left Is this a current diagnosis for this admission?: Yes Plan: 03/15/2019-I have asked interventional radiology to perform a thoracentesis. I have ordered testing on the pleural fluid. This should improve her respiratory status and testing results will likely confirm that this is a transudate. (11) Pulmonary hypertension Is this a current diagnosis for this admission?: Yes Plan: 03/15/2019-the echocardiogram revealed severe pulmonary hypertension. I expla ined to the patient that this is contributing to her shortness of breath. We will assess the pleural fluid and then I will consult pulmonology for treatment strategies. (12) Tricuspid regurgitation Qualifiers: Cardiac valve disease etiology: etiology unspecified Qualified Code(s): I07.1 - Rheumatic tricuspid insufficiency Is this a current diagnosis for this admission?: Yes Plan: 03/15/2019-moderate to severe tricuspid regurgitation noted. The patient was unaware of this condition in the past. She has not seen a doctor for at least 20 years. Will assess the pleural fluid as noted above. We will then develop a treatment plan. - Time Time Spent with patient: 25-34 minutes Smoking Cessation Education: 3 to 10 minutes Medications reviewed and adjusted accordingly: Yes
[2019-03-15] MEDS: ATORVASTATIN CALCIUM 20 MG TABLET PO SCH (22:36)
[2019-03-15] MEDS: ASPIRIN 81 MG TABLET, ENT COATED PO SCH (22:36)
[2019-03-16] MEDS: MORPHINE SULFATE 10 MG/ML INJ IV PRN ×6 (01:40→21:15)
[2019-03-16] MEDS: HEPARIN SOD (PORCINE) 5,000 UNIT/ML 1 ML VIAL SUBCUT SCH ×3 (05:40→21:19)
[2019-03-16 06:44] LABS: ABSOLUTE EOSINOPHILS # (AUTO) 0.1 10^3/uL (0.0-0.6); ABSOLUTE LYMPHOCYTES (AUTO) 0.5 10^3/uL (0.5-4.7); ABSOLUTE MONOCYTES (AUTO) 0.8 10^3/uL (0.1-1.4); ABSOLUTE NEUT (AUTO) 5.8 10^3/uL (1.7-8.2); BASOPHILS % (AUTO) 0.3 % (0-2); EOSINOPHILS % (AUTO) 1.8 % (0-6); HEMATOCRIT 49.1 % (36.0-47.0); HEMOGLOBIN 16.4 g/dL (12.0-15.5); MEAN CORPUSCULAR HEMOGLOBIN 34.3 pg (27.0-33.4); MEAN CORPUSCULAR HGB CONC 33.3 g/dL (32.0-36.0); MEAN CORPUSCULAR VOLUME 103 fl (80-97); MONOCYTES % (AUTO) 11.1 % (3-13); PLATELET COUNT 102 10^3/uL (150-450); RED BLOOD COUNT 4.76 10^6/uL (3.72-5.28); RED CELL DISTRIBUTION WIDTH 15.2 % (11.5-14.0); SEGMENTED NEUTROPHILS % (AUTO) 79.8 % (42-78); TOTAL CELLS COUNTED % (AUTO) 100 %; WHITE BLOOD COUNT 7.3 10^3/uL (4.0-10.5)
[2019-03-16 06:47] LABS: INTERNATIONAL RATION (INR) 1.11; PROTHROMBIN TIME 14.3 SEC (11.4-15.4)
[2019-03-16 06:48] LABS: PARTIAL THROMBOPLASTIN TIME 30.4 SEC (23.5-35.8)
[2019-03-16 07:01] LABS: BLOOD UREA NITROGEN 21 mg/dL (7-20); CALCIUM 8.6 mg/dL (8.4-10.2); CHLORIDE 101 mmol/L (98-107); GLUCOSE 86 mg/dL (75-110)
[2019-03-16 07:07] LABS: CARBON DIOXIDE 38 mmol/L (22-30)
[2019-03-16 07:09] LABS: ANION GAP 2 (5-19)
[2019-03-16] MEDS: THIAMINE HCL 100 MG, FOLIC ACID 1 MG in NORMAL SALINE 250 ML IV SCH (10:14)
[2019-03-16] MEDS: CYANOCOBALAMIN (VITAMIN B-12) 1,000 MCG TABLET PO SCH (10:14)
[2019-03-16] MEDS: POTASSIUM CHLORIDE 20 MEQ PACKET PO SCH ×2 (10:14→21:20)
[2019-03-16] MEDS: DOCUSATE SODIUM 100 MG CAPSULE PO SCH (10:14)
[2019-03-16] MEDS: FUROSEMIDE INJ/PF 40 MG/4 ML SDV IV SCH (10:26)
--- NOTE | 2019-03-16 12:34 | RADIOLOGY REPORT (SQ) ---
EXAM DESCRIPTION: CHEST SINGLE VIEW COMPLETED DATE/TIME: 03/16/2019 12:24 pm REASON FOR STUDY: S/P LT THORACENTESIS COMPARISON: 03/13/2019 EXAM PARAMETERS: NUMBER OF VIEWS: One view. TECHNIQUE: Single frontal radiographic view of the chest acquired. RADIATION DOSE: NA LIMITATIONS: None. FINDINGS: LUNGS AND PLEURA: There appears be chronic pleural/parenchymal scarring the left apex. Th ere is a right pleural effusion with opacification in the right lower lobe. Minimal left pleural eff usion. Retrocardiac opacification on the left on the earlier study is no longer present. No pneumot horax. MEDIASTINUM AND HILAR STRUCTURES: No masses. Contour normal. HEART AND VASCULAR STRUCTURES: Heart normal in size. Normal vasculature. BONES: No acute findings. HARDWARE: None in the chest. OTHER: No other significant finding. IMPRESSION: No pneumothorax. Small pleural effusions. Chronic lung changes. TECHNICAL DOCUMENTATION: JOB ID: [id number] [employer]- All Rights Reserved Reading location - IP/workstation name: [email or web address]
--- NOTE | 2019-03-16 12:59 | RADIOLOGY REPORT (SQ) ---
EXAM DESCRIPTION: U/S THORACENTESIS WITH IMAGING COMPLETED DATE/TIME: 03/16/2019 12:41 pm REASON FOR STUDY: Large left pleural effusion COMPARISON: CT LUMBAR SPINE 03/13/2019 AP CHEST 03/13/2019 LIMITATIONS: None. PROCEDURE: Procedure, risks, benefit, and alternative explained to patient who then gave written con sent. The posterior left chest wall was marked using ultrasound guidance. A time-out was called for correct marking verification. Chest prepped and draped using sterile technique. Local anesthesia ac hieved using 7 ml of 1% lidocaine injection. A 6fr Safe-T- Centesis set was introduced into the post erior left pleural space. Fluid was aspirated. The catheter was removed and the entry site was cove red with sterile bandage. No immediate complications noted. No pneumothorax on immediate post proced ure chest film dictated separately Images acquired during the procedure were stored on PACS. FINDINGS: ENTRY SITE: Left posterior pleural space FLUID VOLUME: 600 mL FLUID ANALYSIS: Clear straw-colored fluid sent for testing OTHER: Post procedure chest x-ray dictated separately demonstrates no left-sided pneumothorax IMPRESSION: SUCCESSFUL THORACENTESIS USING ULTRASOUND GUIDANCE. COMMENT: Patient medication list reviewed: Yes- Quality ID# [id number]:Eligible professional attests to doc umenting in the medical record they obtained, updated, or reviewed the patient's current medications. TECHNICAL DOCUMENTATION: JOB ID: [id number] [employer]- All Rights Reserved Reading location - IP/workstation name: [email or web address]
[2019-03-16 14:11] LABS: FLUID APPEARANCE HAZY; FLUID COLOR YELLOW; FLUID SOURCE LUNG; FLUID TYPE PLEURAL; FLUID VISCOSITY LIQUID
--- NOTE | 2019-03-16 14:48 | RADIOLOGY REPORT (SQ) ---
EXAM DESCRIPTION: CHEST SINGLE VIEW COMPLETED DATE/TIME: 03/16/2019 2:37 pm REASON FOR STUDY: 2 HRS S/P LT THORACENTESIS COMPARISON: AP view of the chest from 03/16/2019. EXAM PARAMETERS: NUMBER OF VIEWS: One view. TECHNIQUE: Single frontal radiographic view of the chest acquired. RADIATION DOSE: NA LIMITATIONS: None. FINDINGS: Status post left thoracentesis. There is no postprocedural pneumothorax. There is re- de monstration of emphysema with biapical scarring. The costophrenic sulci are blunted. The cardiac si lhouette is enlarged. The pulmonary vasculature is within normal limits. There is no acute abnormal ity of the imaged osseous structures. IMPRESSION: No postprocedural pneumothorax. TECHNICAL DOCUMENTATION: JOB ID: [id number] [employer]- All Rights Reserved Reading location - IP/workstation name: [email or web address]
[2019-03-16] MEDS ORDERED: IPRATROPIUM/ALBUTEROL 0.5-2.5 MG/3 ML AMPUL NEB PRN (18:07)
--- NOTE | 2019-03-16 18:08 | PDOC PROGRESS REPORT ---
Subjective Progress Note for:: 03/16/19 Subjective:: The patient is sitting in bed. She had her thoracentesis earlier. She reports that it did not hurt at all. She does feel slightly better. Reason For Visit: ACUTE ON CHRONIC COPD, ACUTE HEART FAILURE, Physical Exam Vital Signs: Temp Pulse Resp BP Pulse Ox 97.8 F 86 17 99/65 L 95 03/16/19 15:44 03/16/19 15:44 03/16/19 15:44 03/16/19 15:44 03/16/19 15:44 Intake & Output 03/15/19 03/16/19 03/17/19 06:59 06:59 06:59 Intake Total 480 1351.2 371.2 Output Total 2500 100 Balance 480 -1148.8 271.2 Weight 55 kg 49.6 kg General appearance: PRESENT: no acute distress, well-developed Head exam: PRESENT: atraumatic, normocephalic Eye exam: PRESENT: conjunctiva pink. ABSENT: scleral icterus Ear exam: PRESENT: normal external ear exam. ABSENT: bleeding, drainage Respiratory exam: PRESENT: rales - Left base, symmetrical, unlabored. ABSENT: tachypnea, wheezes Cardiovascular exam: PRESENT: RRR, +S1, +S2 GI/Abdominal exam: PRESENT: soft. ABSENT: distended, tenderness Extremities exam: ABSENT: joint swelling, pedal edema Musculoskeletal exam: PRESENT: normal inspection, other - Tender over lumbar spine Neurological exam: PRESENT: alert, awake, oriented to person, oriented to place, oriented to time, oriented to situation, CN II-XII grossly intact Psychiatric exam: PRESENT: flat affect. ABSENT: agitated, anxious Results Laboratory Results: 03/16/19 06:29 03/16/19 06:29 03/14/19 03/16/19 03/16/19 03:15 06:29 06:29 WBC 7.3 RBC 4.76 Hgb 16.4 H Hct 49.1 H MCV 103 H MCH 34.3 H MCHC 33.3 RDW 15.2 H Plt Count 102 L Seg Neutrophils % 79.8 H Sodium 141.2 Potassium 5.0 Chloride 101 Carbon Dioxide 38 H Anion Gap 2 L BUN 21 H Creatinine 0.51 L Est GFR ( Amer) > 60 Glucose 86 Calcium 8.6 Magnesium 2.2 Erythropoietin 6.6 Fluid Type Fluid Source Fluid Color Fluid Appearance Fluid Viscosity Fluid WBC Fluid RBC 03/16/19 12:00 WBC RBC Hgb Hct MCV MCH MCHC RDW Plt Count Seg Neutrophils % Sodium Potassium Chloride Carbon Dioxide Anion Gap BUN Creatinine Est GFR ( Amer) Glucose Calcium Magnesium Erythropoietin Fluid Type PLEURAL Fluid Source LUNG Fluid Color YELLOW Fluid Appearance HAZY Fluid Viscosity LIQUID Fluid WBC 890 Fluid RBC 23 03/13/19 03/13/19 03/13/19 18:30 18:30 18:30 Creatine Kinase 63 45 CK-MB (CK-2) 7.00 H Troponin I NT-Pro-B Natriuret Pep 37618 H 03/14/19 03/14/19 03/14/19 02:15 02:15 09:45 Creatine Kinase 39 CK-MB (CK-2) 4.67 H Troponin I 0.591 Cancelled NT-Pro-B Natriuret Pep 03/14/19 03/14/19 03/14/19 09:45 15:12 15:12 Creatine Kinase 32 CK-MB (CK-2) 4.28 3.04 Troponin I 0.472 0.476 NT-Pro-B Natriuret Pep Impressions: Lung Scan-VQ NM 03/13/19 00:00 IMPRESSION: Low probability for PE copyright 2011 [employer]- All Rights Reserved Lumbar Spine X-Ray 03/13/19 18:49 IMPRESSION: Minimal compression of the L2 vertebral body, age undetermined. Lumbar Spine CT 03/13/19 22:20 IMPRESSION: Acute fracture of the inferior aspect of L2 with mild loss of height. Bilateral pleural effusions and basilar atelectasis Fluid in the pelvis. Thoracentesis Ultrasound 03/16/19 00:00 IMPRESSION: SUCCESSFUL THORACENTESIS USING ULTRASOUND GUIDANCE. Chest X-Ray 03/16/19 14:15 IMPRESSION: No postprocedural pneumothorax. Assessment and Plan - Diagnosis (1) Compression fracture of L2 Qualifiers: Encounter type: subsequent encounter Is this a current diagnosis for this admission?: Yes Plan: 03/14/2019-the patient sustained an acute L2 fracture. I will investigate the possibility of kyphoplasty tomorrow. Symptomatic pain management at this time. 03/15/2019-pain appears to be improved. Once the pleural effusion is addressed then I will try and arrange kyphoplasty. 03/16/2019-thoracentesis is completed. We will try and arrange for kyphoplasty. (2) Polycythemia Is this a current diagnosis for this admission?: Yes Plan: 03/14/2019-secondary to hypoxemia. She has a history of smoking. Certainly there could be underlying chronic obstructive pulmonary disease. At this point, hematology will be evaluating the patient. Usually a hemoglobin at this level does not require phlebotomy. 03/15/2019-we will continue to monitor hemoglobin. This morning it was back in the normal range at 15. 03/16/2019-most likely secondary to her COPD. Hematology will evaluate. (3) Acute decompensated heart failure Is this a current diagnosis for this admission?: Yes Plan: 03/14/2019-continue diuretic therapy with potassium supplementation. Await results of echocardiogram. Per nursing the edema is improved. We will continue to monitor her markedly elevated brain natruretic peptide as this may give us some indicator of the improvement of her heart failure. 03/15/2019-the patient in fact has an ejection fraction of 60% by echocardiogram. She has grade 1/4 diastolic dysfunction. The primary issue seems to be severe pulmonary hypertension with moderate to severe tricuspid regurgitation. Continue current medications. 03/16/2019-we will consult pulmonology for severe pulmonary hypertension and tricuspid regurgitation. (4) Elevated troponin Is this a current diagnosis for this admission?: Yes Plan: 03/14/2019-likely a subacute non-ST elevated myocardial infarction. Will trend troponins. Conservative therapy including aspirin, statin therapy and possibly beta-efrain and MELANIE inhibitor. 03/15/2019-troponins seem to be stable between 0.04 and 0.05. This is very likely her baseline. It is probable that there was no acute infarct at this time. (5) Fall Qualifiers: Encounter type: initial encounter Qualified Code(s): W19.XXXA - Unspecified fall, initial encounter Is this a current diagnosis for this admission?: Yes Plan: 03/14/2019-unsure of the etiology of the fall. Physical therapy will be assessing the patient. 03/15/2019-part of her instability is severe dyspnea with exertion. Tomorrow she will have a pleurocentesis and this should help. Physical therapy is working with the patient as well. 03/16/2019-encourage participation with physical therapy. (6) Erythroderma Is this a current diagnosis for this admission?: Yes Plan: 03/14/2019-no clear etiology of the erythroderma. Will investigate further. She does not take many medications and it is not likely an adverse reaction. 03/15/2019-still unsure of the exact cause of the erythroderma. We will continue to investigate. 03/16/2019-hopefully the results of pleurocentesis may give additional information. Erythroderma is slowly improving. (7) Acute respiratory failure with hypoxia and hypercapnia Is this a current diagnosis for this admission?: Yes Plan: 03/14/2019-this is likely a component of her congestive failure with possible underlying chronic obstructive pulmonary disease. With her acute illness PFTs would not be very helpful. We will treat for the failure and consider nebulizer treatments. The patient had BiPAP ordered but has refused to wear it thus far. I will continue to try and encourage compliance as it will bring her PCO2 down. 03/15/2019-the large pleural effusion is the most likely reason for worsening of her respiratory status. That and the combination of COPD are the root cause. She is stable off of BiPAP at this time. Her breathing should improve significantly after the thoracentesis. Pulmonary function testing to assess for COPD is inappropriate at this time due to the presence of the large pleural effusion. Consider PFTs when the patient stabilizes. 03/16/2019-appears to be stable on current oxygen supplementation. Pleurocentesis did help somewhat but she still requires oxygen. (8) Decubitus ulcer of calf, stage 3 Qualifiers: Laterality: unspecified laterality Qualified Code(s): L89.893 - Pressure ulcer of other site, stage 3 Is this a current diagnosis for this admission?: Yes Plan: 03/14/2019-the patient actually has bilateral ulcers on her calves. This is likely from being in a recliner with direct pressure on the calfs from the leg rest. We will cover the lesions with ABD pads for today to try to assess the volume of fluid loss. Tomorrow we will likely start applying Santyl with daily dressing changes. 03/15/2019-continue conservative care. (9) Hyperkalemia Is this a current diagnosis for this admission?: Yes Plan: 03/14/2019-I am unsure of the etiology of her hyperkalemia. He could be due to volume depletion. Her serum creatinine is not markedly elevated. With the diuretic therapy I expect her serum potassium to decrease. There is always the possibility of hemolyzed blood sample which would give an abnormally high serum potassium. I will repeat the electrolytes in the morning and determine the appropriate course of treatment. 03/15/2019-potassium is back to the normal range. (10) Pleural effusion, left Is this a current diagnosis for this admission?: Yes Plan: 03/15/2019-I have asked interventional radiology to perform a thoracentesis. I have ordered testing on the pleural fluid. This should improve her respiratory status and testing results will likely confirm that this is a transudate. 03/16/2019-successful thoracentesis. Pleural fluid submitted for evaluation. (11) Pulmonary hypertension Is this a current diagnosis for this admission?: Yes Plan: 03/15/2019-the echocardiogram revealed severe pulmonary hypertension. I explained to the patient that this is contributing to her shortness of breath. We will assess the pleural fluid and then I will consult pulmonology for treatment strategies. 03/16/2019-await pulmonary consultation. (12) Tricuspid regurgitation Qualifiers: Cardiac valve disease etiology: etiology unspecified Qualified Code(s): I07.1 - Rheumatic tricuspid insufficiency Is this a current diagnosis for this admission?: Yes Plan: 03/15/2019-moderate to severe tricuspid regurgitation noted. The patient was unaware of this condition in the past. She has not seen a doctor for at least 20 years. Will assess the pleural fluid as noted above. We will then develop a treatment plan. 03/16/2019-we will control blood pressure. At this point patient is not a candidate for any type of valvuloplasty/replacement. Pharmacological therapy only. - Time Time Spent with patient: 15-24 minutes Medications reviewed and adjusted accordingly: Yes
[2019-03-16] MEDS: IPRATROPIUM/ALBUTEROL 0.5-2.5 MG/3 ML AMPUL NEB SCH (20:23)
[2019-03-16] MEDS: ASPIRIN 81 MG TABLET, ENT COATED PO SCH (21:16)
[2019-03-16] MEDS: ATORVASTATIN CALCIUM 20 MG TABLET PO SCH (21:16)
[2019-03-17] MEDS: MORPHINE SULFATE 10 MG/ML INJ IV PRN ×4 (04:57→20:25)
[2019-03-17] MEDS: HEPARIN SOD (PORCINE) 5,000 UNIT/ML 1 ML VIAL SUBCUT SCH ×3 (05:05→22:15)
--- NOTE | 2019-03-17 08:19 | PDOC PROGRESS REPORT ---
Subjective Progress Note for:: 03/17/19 Subjective:: Patient states that she is feeling much better, but did not sleep well last night. ROS: She denies dyspnea or pain. She is eating some. Reason For Visit: ACUTE ON CHRONIC COPD, ACUTE HEART FAILURE, Physical Exam Vital Signs: Temp Pulse Resp BP Pulse Ox 97.4 F 84 18 106/60 97 03/17/19 03:40 03/17/19 07:00 03/17/19 03:40 03/17/19 03:40 03/17/19 03:40 Intake & Output 03/16/19 03/17/19 03/18/19 06:59 06:59 06:59 Intake Total 1351.2 607.2 Output Total 2500 100 Balance -1148.8 507.2 Weight 49.6 kg 46.5 kg General appearance: PRESENT: no acute distress, thin Head exam: PRESENT: normocephalic Respiratory exam: PRESENT: unlabored Extremities exam: ABSENT: pedal edema Neurological exam: PRESENT: alert, awake Psychiatric exam: PRESENT: appropriate affect Skin exam: PRESENT: other - Erythema in ankles much improved. Results Laboratory Results: 03/16/19 06:29 03/16/19 06:29 03/16/19 12:00 Fluid Type PLEURAL Fluid Source LUNG Fluid Color YELLOW Fluid Appearance HAZY Fluid Viscosity LIQUID Fluid WBC 890 Fluid RBC 23 03/13/19 03/13/19 03/13/19 18:30 18:30 18:30 Creatine Kinase 63 45 CK-MB (CK-2) 7.00 H Troponin I NT-Pro-B Natriuret Pep 89103 H 03/14/19 03/14/19 03/14/19 02:15 02:15 09:45 Creatine Kinase 39 CK-MB (CK-2) 4.67 H Troponin I 0.591 Cancelled NT-Pro-B Natriuret Pep 03/14/19 03/14/19 03/14/19 09:45 15:12 15:12 Creatine Kinase 32 CK-MB (CK-2) 4.28 3.04 Troponin I 0.472 0.476 NT-Pro-B Natriuret Pep Impressions: Lung Scan-VQ NM 03/13/19 00:00 IMPRESSION: Low probability for PE copyright 2011 [employer]- All Rights Reserved Lumbar Spine X-Ray 03/13/19 18:49 IMPRESSION: Minimal compression of the L2 vertebral body, age undetermined. Lumbar Spine CT 03/13/19 22:20 IMPRESSION: Acute fracture of the inferior aspect of L2 with mild loss of height. Bilateral pleural effusions and basilar atelectasis Fluid in the pelvis. Thoracentesis Ultrasound 03/16/19 00:00 IMPRESSION: SUCCESSFUL THORACENTESIS USING ULTRASOUND GUIDANCE. Chest X-Ray 03/16/19 14:15 IMPRESSION: No postprocedural pneumothorax. Assessment & Plan - Diagnosis (1) Compression fracture of L2 Qualifiers: Encounter type: subsequent encounter Is this a current diagnosis for this admission?: Yes (2) Polycythemia Is this a current diagnosis for this admission?: Yes - Time Time Spent with patient: 15-24 minutes - Plan Summary Plan Summary: Her blood counts have been stable. I will order CT chest to rule out other significant causes of her hypoxia. I believe she will benefit from continued O2. Dr. Eubanks will be available over the weekend, if needed. Please call with any questions or concerns. I agree with rehab stay on discharge.
[2019-03-17] MEDS: IPRATROPIUM/ALBUTEROL 0.5-2.5 MG/3 ML AMPUL NEB SCH ×2 (08:48→19:54)
[2019-03-17] MEDS: FUROSEMIDE INJ/PF 40 MG/4 ML SDV IV SCH (11:32)
[2019-03-17] MEDS: CYANOCOBALAMIN (VITAMIN B-12) 1,000 MCG TABLET PO SCH (11:38)
[2019-03-17] MEDS: POTASSIUM CHLORIDE 20 MEQ PACKET PO SCH ×2 (11:38→22:15)
[2019-03-17] MEDS: DOCUSATE SODIUM 100 MG CAPSULE PO SCH (11:39)
[2019-03-17] MEDS: THIAMINE HCL 100 MG, FOLIC ACID 1 MG in NORMAL SALINE 250 ML IV SCH (11:39)
--- NOTE | 2019-03-17 16:06 | RADIOLOGY REPORT (SQ) ---
EXAM DESCRIPTION: CT CHEST WITHOUT COMPLETED DATE/TIME: 03/17/2019 3:43 pm REASON FOR STUDY: Evaluate resp status for pleural fluid/lung status COMPARISON: 03/13/2019. 03/16/2019. TECHNIQUE: CT scan performed of the chest without intravenous contrast. Images reviewed with lung, soft tissue and bone windows. Reconstructed coronal and sagittal MPR images reviewed. All images st ored on PACS. All CT scanners at this facility use dose modulation, iterative reconstruction, and/or weight based d osing when appropriate to reduce radiation dose to as low as reasonably achievable (ALARA). [facility]: Dose Right [facility]: CareDose [facility]: Dose Right [facility]: Teradose 4D [facility]: [employer] RADIATION DOSE: CT Rad equipment meets quality standard of care and radiation dose reduction techniq ues were employed. CTDIvol: 4.4 mGy. DLP: 188 mGy-cm. mGy. LIMITATIONS: No technical limitations. FINDINGS: LUNGS AND PLEURA: No pneumothorax. Extensive emphysematous changes. Significant bilatera l pleural effusions, right more than left. 33 x 38 mm suprahilar mass on the left. HILAR AND MEDIASTINAL STRUCTURES: No identified masses or abnormal nodes. No obvious aneurysm. HEART AND VASCULAR STRUCTURES: No aneurysm. No pericardial effusion. UPPER ABDOMEN: No significant findings. Limited exam. THYROID AND OTHER SOFT TISSUES: No masses. No adenopathy. BONES: No significant finding. HARDWARE: None in the chest. OTHER: No other significant findings. IMPRESSION: 33 x 38 mm suprahilar mass on the left. Extensive pulmonary emphysema. Bilateral pleur al effusions. TECHNICAL DOCUMENTATION: JOB ID: [id number] Quality ID # [id number]: Final reports with documentation of one or more dose reduction techniques (e.g., Au tomated exposure control, adjustment of the mA and/or kV according to patient size, use of iterative reconstruction technique) 2010 [employer]- All Rights Reserved Reading location - IP/workstation name: [email or web address]
--- NOTE | 2019-03-17 20:40 | PDOC PROGRESS REPORT ---
Subjective Progress Note for:: 03/17/19 Subjective:: The patient is resting in bed. She had a CT scan earlier today. The results did show a 3 to 4 cm mass near the left hilum. The patient was visibly upset but not totally surprised with this news. Reason For Visit: ACUTE ON CHRONIC COPD, ACUTE HEART FAILURE, Physical Exam Vital Signs: Temp Pulse Resp BP Pulse Ox 99.3 F 93 16 102/63 92 03/17/19 15:21 03/17/19 19:54 03/17/19 19:54 03/17/19 15:21 03/17/19 19:54 Intake & Output 03/16/19 03/17/19 03/18/19 06:59 06:59 06:59 Intake Total 1351.2 607.2 491.2 Output Total 2500 100 150 Balance -1148.8 507.2 341.2 Weight 49.6 kg 46.5 kg 46.5 kg General appearance: PRESENT: cooperative, mild distress, thin, well-developed Head exam: PRESENT: atraumatic, normocephalic Respiratory exam: PRESENT: rales - Left base, symmetrical, unlabored. ABSENT: rhonchi, tachypnea, wheezes Cardiovascular exam: PRESENT: RRR, +S1, +S2 GI/Abdominal exam: PRESENT: diminished bowel sounds, soft, tenderness - In the epigastrium. ABSENT: distended Rectal exam: PRESENT: deferred Neurological exam: PRESENT: alert, awake, oriented to person, oriented to place, oriented to time, oriented to situation, CN II-XII grossly intact Psychiatric exam: PRESENT: depressed, other - Patient was tearful discussing the results of her CAT scan Results Laboratory Results: 03/16/19 06:29 03/16/19 06:29 03/16/19 12:00 Fluid Total Protein 2.1 03/13/19 03/13/19 03/13/19 18:30 18:30 18:30 Creatine Kinase 63 45 CK-MB (CK-2) 7.00 H Troponin I NT-Pro-B Natriuret Pep 01893 H 03/14/19 03/14/19 03/14/19 02:15 02:15 09:45 Creatine Kinase 39 CK-MB (CK-2) 4.67 H Troponin I 0.591 Cancelled NT-Pro-B Natriuret Pep 03/14/19 03/14/19 03/14/19 09:45 15:12 15:12 Creatine Kinase 32 CK-MB (CK-2) 4.28 3.04 Troponin I 0.472 0.476 NT-Pro-B Natriuret Pep Impressions: Lung Scan-VQ NM 03/13/19 00:00 IMPRESSION: Low probability for PE copyright 2010 [employer]- All Rights Reserved Lumbar Spine X-Ray 03/13/19 18:49 IMPRESSION: Minimal compression of the L2 vertebral body, age undetermined. Lumbar Spine CT 03/13/19 22:20 IMPRESSION: Acute fracture of the inferior aspect of L2 with mild loss of height. Bilateral pleural effusions and basilar atelectasis Fluid in the pelvis. Thoracentesis Ultrasound 03/16/19 00:00 IMPRESSION: SUCCESSFUL THORACENTESIS USING ULTRASOUND GUIDANCE. Chest X-Ray 03/16/19 14:15 IMPRESSION: No postprocedural pneumothorax. Chest CT 03/17/19 10:00 IMPRESSION: 33 x 38 mm suprahilar mass on the left. Extensive pulmonary emphys felipa. Bilateral pleural effusions. Assessment and Plan - Diagnosis (1) Compression fracture of L2 Qualifiers: Encounter type: subsequent encounter Is this a current diagnosis for this admission?: Yes Plan: 03/14/2019-the patient sustained an acute L2 fracture. I will investigate the possibility of kyphoplasty tomorrow. Symptomatic pain management at this time. 03/15/2019-pain appears to be improved. Once the pleural effusion is addressed then I will try and arrange kyphoplasty. 03/16/2019-thoracentesis is completed. We will try and arrange for kyphoplasty. 03/17/2019-with the probability of malignancy consideration for pathologic fracture of the lumbar vertebrae can be given. No lytic lesions were noted on x-ray. We will try to arrange kyphoplasty. (2) Polycythemia Is this a current diagnosis for this admission?: Yes Plan: 03/14/2019-secondary to hypoxemia. She has a history of smoking. Certainly there could be underlying chronic obstructive pulmonary disease. At this point, hematology will be evaluating the patient. Usually a hemoglobin at this level does not require phlebotomy. 03/15/2019-we will continue to monitor hemoglobin. This morning it was back in the normal range at 15. 03/16/2019-most likely secondary to her COPD. Hematology will evaluate. 03/17/2019-hemoglobin was up yesterday. Continue oxygen supplementation. Evaluation by hematology pending. (3) Acute decompensated heart failure Is this a current diagnosis for this admission?: Yes Plan: 03/14/2019-continue diuretic therapy with potassium supplementation. Await results of echocardiogram. Per nursing the edema is improved. We will continue to monitor her markedly elevated brain natruretic peptide as this may give us some indicator of the improvement of her heart failure. 03/15/2019-the patient in fact has an ejection fraction of 60% by echocardiogram. She has grade 1/4 diastolic dysfunction. The primary issue seems to be severe pulmonary hypertension with moderate to severe tricuspid regurgitation. Continue current medications. 03/16/2019-we will consult pulmonology for severe pulmonary hypertension and tricuspid regurgitation. 03/17/2019-pleural fluid was more consistent with inflammatory fluid. Chemistries pending. Heart failure secondary to cor pulmonale (4) Elevated troponin Is this a current diagnosis for this admission?: Yes Plan: 03/14/2019-likely a subacute non-ST elevated myocardial infarction. Will trend troponins. Conservative therapy including aspirin, statin therapy and possibly beta-efrain and MELANIE inhibitor. 03/15/2019-troponins seem to be stable between 0.04 and 0.05. This is very likely her baseline. It is probable that there was no acute infarct at this time. (5) Fall Qualifiers: Encounter type: initial encounter Qualified Code(s): W19.XXXA - Unspecified fall, initial encounter Is this a current diagnosis for this admission?: Yes Plan: 03/14/2019-unsure of the etiology of the fall. Physical therapy will be assessing the patient. 03/15/2019-part of her instability is severe dyspnea with exertion. Tomorrow she will have a pleurocentesis and this should help. Physical therapy is working with the patient as well. 03/16/2019-encourage participation with physical therapy. 03/17/2019-patient has declined physical therapy due to her back pain. We will try and arrange for kyphoplasty. This should significantly improve her pain. (6) Erythroderma Is this a current diagnosis for this admission?: Yes Plan: 03/14/2019-no clear etiology of the erythroderma. Will investigate further. She does not take many medications and it is not likely an adverse reaction. 03/15/2019-still unsure of the exact cause of the erythroderma. We will continue to investigate. 03/16/2019-hopefully the results of pleurocentesis may give additional information. Erythroderma is slowly improving. 03/17/2019-erythroderma is slowly improving. Now that a mass was identified on CT scan this could be related to malignancy. (7) Acute respiratory failure with hypoxia and hypercapnia Is this a current diagnosis for this admission?: Yes Plan: 03/14/2019-this is likely a component of her congestive failure with possible underlying chronic obstructive pulmonary disease. With her acute illness PFTs would not be very helpful. We will treat for the failure and consider nebulizer treatments. The patient had BiPAP ordered but has refused to wear it thus far. I will continue to try and encourage compliance as it will bring her PCO2 down. 03/15/2019-the large pleural effusion is the most likely reason for worsening of her respiratory status. That and the combination of COPD are the root cause. She is stable off of BiPAP at this time. Her breathing should improve significantly after the thoracentesis. Pulmonary function testing to assess for COPD is inappropriate at this time due to the presence of the large pleural effusion. Consider PFTs when the patient stabilizes. 03/16/2019-appears to be stable on current oxygen supplementation. Pleurocentesis did help somewhat but she still requires oxygen. 03/17/2019-combination of her COPD and the pleural effusion as well as cor pulmonale. Continue oxygen supplementation. Patient appears to be stable. (8) Decubitus ulcer of calf, stage 3 Qualifiers: Laterality: unspecified laterality Qualified Code(s): L89.893 - Pressure ulcer of other site, stage 3 Is this a current diagnosis for this admission?: Yes Plan: 03/14/2019-the patient actually has bilateral ulcers on her calves. This is likely from being in a recliner with direct pressure on the calfs from the leg rest. We will cover the lesions with ABD pads for today to try to assess the volume of fluid loss. Tomorrow we will likely start applying Santyl with daily dressing changes. 03/15/2019-continue conservative care. (9) Hyperkalemia Is this a current diagnosis for this admission?: Yes Plan: 03/14/2019-I am unsure of the etiology of her hyperkalemia. He could be due to volume depletion. Her serum creatinine is not markedly elevated. With the diuretic therapy I expect her serum potassium to decrease. There is always the possibility of hemolyzed blood sample which would give an abnormally high serum potassium. I will repeat the electrolytes in the morning and determine the appropriate course of treatment. 03/15/2019-potassium is back to the normal range. 03/17/2019-recheck electrolytes in the morning. (10) Pleural effusion, left Is this a current diagnosis for this admission?: Yes Plan: 03/15/2019-I have asked interventional radiology to perform a thoracentesis. I have ordered testing on the pleural fluid. This should improve her respiratory status and testing results will likely confirm that this is a transudate. 03/16/2019-successful thoracentesis. Pleural fluid submitted for evaluation. 03/17/2019-pleural fluid showed inflammatory cells but no malignant cells. The 3 to 4 cm mass was at the left hilum. It may be reachable by bronchoscopy. The effusion could be related to her cor pulmonale. (11) Pulmonary hypertension Is this a current diagnosis for this admission?: Yes Plan: 03/15/2019-the echocardiogram revealed severe pulmonary hypertension. I explained to the patient that this is contributing to her shortness of breath. We will assess the pleural fluid and then I will consult pulmonology for treatment strategies. 03/16/2019-await pulmonary consultation. 03/17/2019-no change in the current regimen at this time. (12) Tricuspid regurgitation Qualifiers: Cardiac valve disease etiology: etiology unspecified Qualified Code(s): I07.1 - Rheumatic tricuspid insufficiency Is this a current diagnosis for this admission?: Yes Plan: 03/15/2019-moderate to severe tricuspid regurgitation noted. The patient was unaware of this condition in the past. She has not seen a doctor for at least 20 years. Will assess the pleural fluid as noted above. We will then develop a treatment plan. 03/16/2019-we will control blood pressure. At this point patient is not a candidate for any type of valvuloplasty/replacement. Pharmacological therapy only. 03/17/2019-conservative management as patient is not a valvuloplasty candidate. - Plan Summary Summary: 03/17/2019-the patient has a 3 to 4 cm mass at the left hilum. I had a long discussion with the patient at the bedside. The day shift and police shift commander nurses were present. The patient is upset but not surprised by the news. She is afraid of pain and is alone. She is somewhat despondent. She is not sure that she wants to go through with any aggressive therapy. She has had multiple relatives from cancer. She seldom suffering she is not sure if she wants this. I told her not to make premature decisions. We need to obtain a biopsy to make sure that it is cancer. Based on her overall clinical presentation it is most likely a malignancy. I explained to her that there are many different types of lung cancer. Some are much more amenable to treatment than others. Some of the new chemotherapeutic regimens are not nearly as older regimens but this will be dependent on the tumor type. Dr. Escalante is following the patient. I explained to the patient that some of the work-up will be done as an outpatient. She will likely need to go home on oxygen. Pain is the rate limiting factor with therapy. I believe the sooner we can get the kyphoplasty performed the sooner we can mobilize the patient and then start planning discharge and work-up as an outpatient. - Time Time Spent with patient: 35 or more minutes Medications reviewed and adjusted accordingly: Yes
[2019-03-17] MEDS ORDERED: FAMOTIDINE 20 MG TABLET PO SCH (22:00)
[2019-03-17] MEDS: TEMAZEPAM 7.5 MG CAPSULE PO PRN (22:05)
[2019-03-17] MEDS: FAMOTIDINE 20 MG TABLET PO SCH (22:05)
[2019-03-17] MEDS: ASPIRIN 81 MG TABLET, ENT COATED PO SCH (22:05)
[2019-03-17] MEDS: ATORVASTATIN CALCIUM 20 MG TABLET PO SCH (22:05)
[2019-03-17] MEDS ORDERED: LIDOCAINE 5% (700 MG) TRANSDERMAL ADH..PATCH ONE (22:14)
[2019-03-17] MEDS: LIDOCAINE 5% (700 MG) TRANSDERMAL ADH..PATCH TP SCH (22:21)
[2019-03-17] MEDS: BUPROPION HCL 75 MG TABLET PO SCH (22:21)
[2019-03-18] MEDS: HEPARIN SOD (PORCINE) 5,000 UNIT/ML 1 ML VIAL SUBCUT SCH ×3 (05:01→21:58)
[2019-03-18] MEDS: IPRATROPIUM/ALBUTEROL 0.5-2.5 MG/3 ML AMPUL NEB SCH ×2 (08:35→19:35)
[2019-03-18 09:43] LABS: ABSOLUTE EOSINOPHILS # (AUTO) 0.1 10^3/uL (0.0-0.6); ABSOLUTE LYMPHOCYTES (AUTO) 0.6 10^3/uL (0.5-4.7); ABSOLUTE MONOCYTES (AUTO) 0.6 10^3/uL (0.1-1.4); ABSOLUTE NEUT (AUTO) 5.5 10^3/uL (1.7-8.2); BASOPHILS % (AUTO) 0.2 % (0-2); EOSINOPHILS % (AUTO) 1.4 % (0-6); HEMATOCRIT 46.6 % (36.0-47.0); HEMOGLOBIN 15.5 g/dL (12.0-15.5); LYMPHOCYTES % (AUTO) 8.7 % (13-45); MEAN CORPUSCULAR HEMOGLOBIN 34.1 pg (27.0-33.4); MEAN CORPUSCULAR HGB CONC 33.2 g/dL (32.0-36.0); MEAN CORPUSCULAR VOLUME 103 fl (80-97); MONOCYTES % (AUTO) 9.4 % (3-13); PLATELET COUNT 107 10^3/uL (150-450); RED BLOOD COUNT 4.54 10^6/uL (3.72-5.28); SEGMENTED NEUTROPHILS % (AUTO) 80.3 % (42-78); TOTAL CELLS COUNTED % (AUTO) 100 %; WHITE BLOOD COUNT 6.8 10^3/uL (4.0-10.5)
[2019-03-18] MEDS: POTASSIUM CHLORIDE 20 MEQ PACKET PO SCH ×2 (09:45→22:23)
[2019-03-18] MEDS: BUPROPION HCL 75 MG TABLET PO SCH ×2 (09:45→22:23)
[2019-03-18] MEDS: CYANOCOBALAMIN (VITAMIN B-12) 1,000 MCG TABLET PO SCH (09:45)
[2019-03-18] MEDS: MORPHINE SULFATE 10 MG/ML INJ IV PRN ×3 (09:45→22:12)
[2019-03-18] MEDS: DOCUSATE SODIUM 100 MG CAPSULE PO SCH (09:45)
[2019-03-18] MEDS: FUROSEMIDE INJ/PF 40 MG/4 ML SDV IV SCH (09:46)
[2019-03-18] MEDS: THIAMINE HCL 100 MG, FOLIC ACID 1 MG in NORMAL SALINE 250 ML IV SCH (09:46)
[2019-03-18 09:56] LABS: ANION GAP 6 (5-19); BLOOD UREA NITROGEN 12 mg/dL (7-20); CALCIUM 8.5 mg/dL (8.4-10.2); CARBON DIOXIDE 34 mmol/L (22-30); CHLORIDE 98 mmol/L (98-107); GLUCOSE 117 mg/dL (75-110); POTASSIUM 4.4 mmol/L (3.6-5.0)
--- NOTE | 2019-03-18 11:11 | PDOC PROGRESS REPORT ---
Subjective Progress Note for:: 03/18/19 Subjective:: Patient still complains of back pain. States that the pain medications are helping her significantly. I discussed with her findings of her CT scan which she was already aware of my discussion with the physician yesterday. Patient was not too surprised and has confirmed that she has had an extensive smoking history and has been experiencing significant weight loss in the past several months. Patient was again acknowledges she has not seen a doctor in over 40 y ears and states that she will not be too surprised that she had lung cancer. Currently denies any worsening of baseline shortness of breath. Reason For Visit: ACUTE ON CHRONIC COPD, ACUTE HEART FAILURE, Physical Exam Vital Signs: Temp Pulse Resp BP Pulse Ox 97.7 F 95 16 96/51 L 96 03/18/19 07:47 03/18/19 07:47 03/18/19 07:47 03/18/19 07:47 03/18/19 07:47 Intake & Output 03/17/19 03/18/19 03/19/19 06:59 06:59 06:59 Intake Total 607.2 731.2 251.2 Output Total 100 450 Balance 507.2 281.2 251.2 Weight 46.5 kg 44.6 kg General appearance: PRESENT: no acute distress, cooperative Eye exam: PRESENT: EOMI Respiratory exam: PRESENT: clear to auscultation christopher, symmetrical, unlabored. ABSENT: tachypnea, wheezes Cardiovascular exam: PRESENT: RRR, +S1, +S2. ABSENT: tachycardia GI/Abdominal exam: PRESENT: normal bowel sounds, soft. ABSENT: rebound, rigid, tenderness Neurological exam: PRESENT: alert, awake, oriented to person, oriented to place, oriented to time, oriented to situation Psychiatric exam: ABSENT: agitated Results Laboratory Results: 03/18/19 08:57 03/18/19 08:57 03/16/19 03/18/19 03/18/19 12:00 08:57 08:57 WBC 6.8 RBC 4.54 Hgb 15.5 Hct 46.6 MCV 103 H MCH 34.1 H MCHC 33.2 RDW 15.0 H Plt Count 107 L Seg Neutrophils % 80.3 H Sodium 138.3 Potassium 4.4 Chloride 98 Carbon Dioxide 34 H Anion Gap 6 BUN 12 Creatinine 0.44 L Est GFR ( Amer) > 60 Glucose 117 H Calcium 8.5 Fluid Total Protein 2.1 03/13/19 03/13/19 03/13/19 18:30 18:30 18:30 Creatine Kinase 63 45 CK-MB (CK-2) 7.00 H Troponin I NT-Pro-B Natriuret Pep 63694 H 03/14/19 03/14/19 03/14/19 02:15 02:15 09:45 Creatine Kinase 39 CK-MB (CK-2) 4.67 H Troponin I 0.591 Cancelled NT-Pro-B Natriuret Pep 03/14/19 03/14/19 03/14/19 09:45 15:12 15:12 Creatine Kinase 32 CK-MB (CK-2) 4.28 3.04 Troponin I 0.472 0.476 NT-Pro-B Natriuret Pep Impressions: Lung Scan-VQ NM 03/13/19 00:00 IMPRESSION: Low probability for PE copyright 2011 [employer]- All Rights Reserved Lumbar Spine X-Ray 03/13/19 18:49 IMPRESSION: Minimal compression of the L2 vertebral body, age undetermined. Lumbar Spine CT 03/13/19 22:20 IMPRESSION: Acute fracture of the inferior aspect of L2 with mild loss of height. Bilateral pleural effusions and basilar atelectasis Fluid in the pelvis. Thoracentesis Ultrasound 03/16/19 00:00 IMPRESSION: SUCCESSFUL THORACENTESIS USING ULTRASOUND GUIDANCE. Chest X-Ray 03/16/19 14:15 IMPRESSION: No postprocedural pneumothorax. Chest CT 03/17/19 10:00 IMPRESSION: 33 x 38 mm suprahilar mass on the left. Extensive pulmonary emphysema. Bilateral pleural effusions. Assessment and Plan - Diagnosis (1) Compression fracture of L2 Qualifiers: Encounter type: subsequent encounter Is this a current diagnosis for this admission?: Yes (2) Mass of left lung Is this a current diagnosis for this admission?: Yes Plan: Found on CT scan on evaluation of hypoxia Masses is close to 4 cm and located in the left suprahilar region. Patient has extensive smoking history and significant weight loss making the likelihood very high for lung cancer. Oncology is aware and we will be deciding on how to approach obtaining his tissue sample. Patient has been notified. (3) Polycythemia secondary to hypoxia Is this a current diagnosis for this admission?: Yes Plan: Is secondary to chronic hypoxia from extensive emphysema. O2 supplementation. Will perform ambulatory pulse ox on room air to see if he qualifies for home oxygen. In light of polycythemia and cor pulmonale, patient can also qualify for home oxygen if PO2 on ABG is less than 60. So I will check ABG as well. (4) Acute decompensated heart failure Is this a current diagnosis for this admission?: Yes Plan: 03/14/2019-continue diuretic therapy with potassium supplementation. Await results of echocardiogram. Per nursing the edema is improved. We will continue to monitor her markedly elevated brain natruretic peptide as this may give us some indicator of the improvement of her heart failure. 03/15/2019-the patient in fact has an ejection fraction of 60% by echocardiogram. She has grade 1/4 diastolic dysfunction. The primary issue seems to be severe pulmonary hypertension with moderate to severe tricuspid regurgitation. Continue current medications. 03/16/2019-we will consult pulmonology for severe pulmonary hypertension and tricuspid regurgitation. 03/17/2019-pleural fluid was more consistent with inflammatory fluid. Chemistries pending. Heart failure secondary to cor pulmonale 03/18/2019-patient experiencing right heart failure secondary to cor pulmonale given her extensive emphysema. Continue diuresis and oxygen supplementation. (5) Fall Qualifiers: Encounter type: initial encounter Qualified Code(s): W19.XXXA - Unspecified fall, initial encounter Is this a current diagnosis for this admission?: Yes Plan: 03/14/2019-unsure of the etiology of the fall. Physical therapy will be assessing the patient. 03/15/2019-part of her instability is severe dyspnea with exertion. Tomorrow she will have a pleurocentesis and this should help. Physical therapy is working with the patient as well. 03/16/2019-encourage participation with physical therapy. 03/17/2019-patient has declined physical therapy due to her back pain. We will try and arrange for kyphoplasty. This should significantly improve her pain. - Plan Summary Summary: 03/17/2019-the patient has a 3 to 4 cm mass at the left hilum. I had a long discussion with the patient at the bedside. The day shift and machinist 2nd shift nurses were present. The patient is upset but not surprised by the news. She is afraid of pain and is alone. She is somewhat despondent. She is not sure that she wants to go through with any aggressive therapy. She has had multiple relatives from cancer. She seldom suffering she is not sure if she wants this. I told her not to make premature decisions. We need to obtain a biopsy to make sure that it is cancer. Based on her overall clinical presentation it is most likely a malignancy. I explained to her that there are many different types of lung cancer. Some are much more amenable to treatment than others. Some of the new chemotherapeutic regimens are not nearly as older regimens but this will be dependent on the tumor type. Dr. Escalante is following the patient. I explained to the patient that some of the work-up will be done as an outpatient. She will likely need to go home on oxygen. Pain is the rate limiting factor with therapy. I believe the sooner we can get the kyphoplasty performed the sooner we can mobilize the patient and then start planning discharge and work-up as an outpatient. - Time Time Spent with patient: 15-24 minutes
--- NOTE | 2019-03-18 12:32 | PDOC PROGRESS REPORT ---
Subjective Progress Note for:: 03/18/19 Subjective:: Patient still having fairly severe low back pain cannot really walk much because of that. Reviewed CT imaging and she does have a 3.8 cm left upper lobe mass, we discussed that. We long discussion about next steps of care, we discussed the need for future bronchoscopy as well as the need for kyphoplasty to take care of the L2 fracture so that she could walk. I consulted Dr. Velazquez pain management is with him, will be seeing her sometime today and hopefully and may be able to do the procedure Wednesday or Wednesday of next week. I also spoke with Dr. Calvillo of pulmonology and told him to look for bronchoscopy spot as well. Reason For Visit: ACUTE ON CHRONIC COPD, ACUTE HEART FAILURE, Physical Exam Vital Signs: Temp Pulse Resp BP Pulse Ox 97.7 F 90 16 96/51 L 93 03/18/19 07:47 03/18/19 08:35 03/18/19 08:35 03/18/19 07:47 03/18/19 08:35 Intake & Output 03/17/19 03/18/19 03/19/19 06:59 06:59 06:59 Intake Total 607.2 731.2 251.2 Output Total 100 450 Balance 507.2 281.2 251.2 Weight 46.5 kg 44.6 kg General appearance: PRESENT: no acute distress, well-developed, well-nourished Head exam: PRESENT: atraumatic, normocephalic Eye exam: PRESENT: conjunctiva pink, EOMI, PERRLA. ABSENT: scleral icterus Ear exam: PRESENT: normal external ear exam Mouth exam: PRESENT: moist, tongue midline Neck exam: ABSENT: carotid bruit, JVD, lymphadenopathy, thyromegaly Respiratory exam: PRESENT: clear to auscultation christopher. ABSENT: rales, rhonchi, wheezes Cardiovascular exam: PRESENT: RRR. ABSENT: diastolic murmur, rubs, systolic m urmur Pulses: PRESENT: normal dorsalis pedis pul Vascular exam: PRESENT: normal capillary refill GI/Abdominal exam: PRESENT: normal bowel sounds, soft. ABSENT: distended, guarding, mass, organolmegaly, rebound, tenderness Rectal exam: PRESENT: deferred Extremities exam: PRESENT: full ROM. ABSENT: calf tenderness, clubbing, pedal edema Neurological exam: PRESENT: alert, awake, oriented to person, oriented to place, oriented to time, oriented to situation, CN II-XII grossly intact. ABSENT: motor sensory deficit Psychiatric exam: PRESENT: appropriate affect, normal mood. ABSENT: homicidal ideation, suicidal ideation Skin exam: PRESENT: dry, intact, warm. ABSENT: cyanosis, rash Results Laboratory Results: 03/18/19 08:57 03/18/19 08:57 03/16/19 03/18/19 03/18/19 12:00 08:57 08:57 WBC 6.8 RBC 4.54 Hgb 15.5 Hct 46.6 MCV 103 H MCH 34.1 H MCHC 33.2 RDW 15.0 H Plt Count 107 L Seg Neutrophils % 80.3 H Sodium 138.3 Potassium 4.4 Chloride 98 Carbon Dioxide 34 H Anion Gap 6 BUN 12 Creatinine 0.44 L Est GFR ( Amer) > 60 Glucose 117 H Calcium 8.5 Fluid Total Protein 2.1 03/13/19 03/13/19 03/13/19 18:30 18:30 18:30 Creatine Kinase 63 45 CK-MB (CK-2) 7.00 H Troponin I NT-Pro-B Natriuret Pep 07880 H 03/14/19 03/14/19 03/14/19 02:15 02:15 09:45 Creatine Kinase 39 CK-MB (CK-2) 4.67 H Troponin I 0.591 Cancelled NT-Pro-B Natriuret Pep 03/14/19 03/14/19 03/14/19 09:45 15:12 15:12 Creatine Kinase 32 CK-MB (CK-2) 4.28 3.04 Troponin I 0.472 0.476 NT-Pro-B Natriuret Pep Impressions: Lung Scan-VQ NM 03/13/19 00:00 IMPRESSION: Low probability for PE copyright 2011 [employer]- All Rights Reserved Lumbar Spine X-Ray 03/13/19 18:49 IMPRESSION: Minimal compression of the L2 vertebral body, age undetermined. Lumbar Spine CT 03/13/19 22:20 IMPRESSION: Acute fracture of the inferior aspect of L2 with mild loss of height. Bilateral pleural effusions and basilar atelectasis Fluid in the pelvis. Thoracentesis Ultrasound 03/16/19 00:00 IMPRESSION: SUCCESSFUL THORACENTESIS USING ULTRASOUND GUIDANCE. Chest X-Ray 03/16/19 14:15 IMPRESSION: No postprocedural pneumothorax. Chest CT 03/17/19 10:00 IMPRESSION: 33 x 38 mm suprahilar mass on the left. Extensive pulmonary emphysema. Bilateral pleural effusions. Status: Image reviewed by me Assessment & Plan - Diagnosis (1) Mass of left lung Is this a current diagnosis for this admission?: Yes Plan: Concerning for primary lung cancer, she is a [id number] tobacco. Plan for bronchoscopy. (2) Compression fracture of L2 Qualifiers: Encounter type: subsequent encounter Is this a current diagnosis for this admission?: Yes Plan: Consult to Dr. Velazqeuz, will need kyphoplasty - Time Time Spent with patient: 35 or more minutes - Inpatient Certification Based on my medical assessment, after consideration of the patient's comorbidities, presenting symptoms, or acuity I expect that the services needed warrant INPATIENT care.: Yes I certify that my determination is in accordance with my understanding of Medicare's requirements for reasonable and necessary INPATIENT services [42 CFR 412.3e].: Yes Medical Necessity: Need For Continuous Telemetry Monitoring, Need for Nebulizer Therapy and Monitoring of Response, Need for Pain Control, Need for Surgery, Risk of Complication if Not Cared For in Hospital
[2019-03-18] MEDS: MAG HYDROX/AL HYDROX/SIMETH SUSP 30 ML UDCUP PO PRN (17:07)
[2019-03-18] MEDS: TEMAZEPAM 7.5 MG CAPSULE PO PRN (22:23)
[2019-03-18] MEDS: ATORVASTATIN CALCIUM 20 MG TABLET PO SCH (22:23)
[2019-03-18] MEDS: FAMOTIDINE 20 MG TABLET PO SCH (22:23)
[2019-03-18] MEDS: LIDOCAINE 5% (700 MG) TRANSDERMAL ADH..PATCH TP SCH (22:23)
[2019-03-19] MEDS: MORPHINE SULFATE 10 MG/ML INJ IV PRN ×3 (04:52→18:46)
[2019-03-19] MEDS: HEPARIN SOD (PORCINE) 5,000 UNIT/ML 1 ML VIAL SUBCUT SCH ×3 (05:21→22:50)
[2019-03-19] MEDS: MAG HYDROX/AL HYDROX/SIMETH SUSP 30 ML UDCUP PO PRN ×2 (05:27→14:59)
[2019-03-19] MEDS: IPRATROPIUM/ALBUTEROL 0.5-2.5 MG/3 ML AMPUL NEB SCH ×2 (08:06→20:09)
[2019-03-19] MEDS: FUROSEMIDE INJ/PF 40 MG/4 ML SDV IV SCH (11:21)
[2019-03-19] MEDS: CYANOCOBALAMIN (VITAMIN B-12) 1,000 MCG TABLET PO SCH (11:21)
[2019-03-19] MEDS: POTASSIUM CHLORIDE 20 MEQ PACKET PO SCH ×2 (11:21→23:01)
[2019-03-19] MEDS: THIAMINE HCL 100 MG, FOLIC ACID 1 MG in NORMAL SALINE 250 ML IV SCH (11:21)
[2019-03-19] MEDS: DOCUSATE SODIUM 100 MG CAPSULE PO SCH (11:21)
[2019-03-19] MEDS: BUPROPION HCL 75 MG TABLET PO SCH ×2 (11:22→23:01)
--- NOTE | 2019-03-19 14:49 | PDOC PROGRESS REPORT ---
Subjective Progress Note for:: 03/19/19 Subjective:: No adverse events overnight. No new complaints. She says that her back does not hurt too bad as long as she stays still but when she has to move or be repositioned it hurts pretty bad. She has been eating and drinking without difficulty. Breathing feels comfortable. Reason For Visit: ACUTE ON CHRONIC COPD, ACUTE HEART FAILURE, Physical Exam Vital Signs: Temp Pulse Resp BP Pulse Ox 97.2 F 88 18 106/62 97 03/19/19 12:40 03/19/19 12:40 03/19/19 12:40 03/19/19 12:40 03/19/19 12:40 Intake & Output 03/18/19 03/19/19 03/20/19 06:59 06:59 06:59 Intake Total 731.2 571.2 251.2 Output Total 450 575 Balance 281.2 -3.8 251.2 Weight 44.6 kg 44.8 kg General appearance: PRESENT: no acute distress, cooperative, disheveled, thin Respiratory exam: PRESENT: decreased breath sounds, prolonged expiratory phas - Slightly, symmetrical, unlabored. ABSENT: accessory muscle use, chest wall tenderness, crackles, rhonchi, tachypnea, wheezes Cardiovascular exam: PRESENT: RRR, +S1, +S2 Pulses: PRESENT: normal carotid pulses Vascular exam: PRESENT: normal capillary refill GI/Abdominal exam: PRESENT: normal bowel sounds, soft. ABSENT: distended, guarding, rebound, tenderness Extremities exam: ABSENT: clubbing, pedal edema Musculoskeletal exam: PRESENT: normal inspection. ABSENT: deformity Neurological exam: PRESENT: alert, awake, oriented to person, oriented to place, oriented to situation Psychiatric exam: PRESENT: appropriate affect, normal mood Skin exam: PRESENT: dry, warm Results Laboratory Results: 03/18/19 08:57 03/18/19 08:57 03/19/19 06:30 Carbonic Acid Cancelled HCO3/H2CO3 Ratio Cancelled ABG pH Cancelled ABG pCO2 Cancelled ABG pO2 Cancelled ABG HCO3 Cancelled ABG O2 Saturation Cancelled ABG Base Excess Cancelled FiO2 Cancelled 03/13/19 20:10 Blood Blood Culture - Final NO GROWTH IN 5 DAYS 03/13/19 18:30 Blood Blood Culture - Final NO GROWTH IN 5 DAYS 03/13/19 03/13/1919 18:30 18:30 18:30 Creatine Kinase 63 45 CK-MB (CK-2) 7.00 H Troponin I NT-Pro-B Natriuret Pep 31634 H 03/14/19 03/14/19 03/14/19 02:15 02:15 09:45 Creatine Kinase 39 CK-MB (CK-2) 4.67 H Troponin I 0.591 Cancelled NT-Pro-B Natriuret Pep 03/14/19 03/14/19 03/14/19 09:45 15:12 15:12 Creatine Kinase 32 CK-MB (CK-2) 4.28 3.04 Troponin I 0.472 0.476 NT-Pro-B Natriuret Pep Impressions: Lung Scan-VQ NM 03/13/19 00:00 IMPRESSION: Low probability for PE copyright 2011 [employer]- All Rights Reserved Lumbar Spine X-Ray 03/13/19 18:49 IMPRESSION: Minimal compression of the L2 vertebral body, age undetermined. Lumbar Spine CT 03/13/19 22:20 IMPRESSION: Acute fracture of the inferior aspect of L2 with mild loss of height. Bilateral pleural effusions and basilar atelectasis Fluid in the pelvis. Thoracentesis Ultrasound 03/16/19 00:00 IMPRESSION: SUCCESSFUL THORACENTESIS USING ULTRASOUND GUIDANCE. Chest X-Ray 03/16/19 14:15 IMPRESSION: No postprocedural pneumothorax. Chest CT 03/17/19 10:00 IMPRESSION: 33 x 38 mm suprahilar mass on the left. Extensive pulmonary emphysema. Bilateral pleural effusions. Assessment and Plan - Diagnosis (1) Acute respiratory failure with hypoxia and hypercapnia Is this a current diagnosis for this admission?: Yes Plan: combination of her COPD and the pleural effusion as well as cor pulmonale. Continue oxygen supplementation. Patient appears to be stable. (2) Compression fracture of L2 Qualifiers: Encounter type: subsequent encounter Is this a current diagnosis for this admission?: Yes Plan: She is getting a bone scan tomorrow, with plan to get a kyphoplasty later in the week. (3) Mass of left lung Is this a current diagnosis for this admission?: Yes Plan: Plan is for a bronchoscopy, which will more than likely be done after she gets her kyphoplasty. She may even want up having to do some physical therapy prior to pulmonology considering the bronchoscopy. We will follow-up with them as to the decision-making process in this regard. - Plan Summary Summary: 03/17/2019-the patient has a 3 to 4 cm mass at the left hilum. I had a long discussion with the patient at the bedside. The day shift and night manager nurses were present. The patient is upset but not surprised by the news. She is afraid of pain and is alone. She is somewhat despondent. She is not sure that she wants to go through with any aggressive therapy. She has had multiple relatives from cancer. She seldom suffering she is not sure if she wants this. I told her not to make premature decisions. We need to obtain a biopsy to make sure that it is cancer. Based on her overall clinical presentation it is most likely a malignancy. I explained to her that there are many different types of lung cancer. Some are much more amenable to treatment than others. Some of the new chemotherapeutic regimens are not nearly as older regimens but this will be dependent on the tumor type. Dr. Escalante is following the patient. I explained to the patient that some of the work-up will be done as an outpatient. She will likely need to go home on oxygen. Pain is the rate limiting factor with therapy. I believe the sooner we can get the kyphoplasty performed the sooner we can mobilize the patient and then start planning discharge and work-up as an outpatient. - Time Time Spent with patient: 15-24 minutes
[2019-03-19 16:15] LABS: ARTERIAL BLOOD BASE EXCESS 13.8 mmol/L; ARTERIAL BLOOD FIO2 21%; ARTERIAL BLOOD H2CO3 1.85 mmol/L (1.05-1.35); ARTERIAL BLOOD HCO3 41.3 mmol/L (20-24); ARTERIAL BLOOD O2 SATURATION 66.2 % (94-98); ARTERIAL BLOOD PCO2 61.4 mmHg (35-45); ARTERIAL BLOOD PH 7.45 (7.35-7.45); ARTERIAL BLOOD TOTAL CO2 43.2 mmol/L (21-25)
[2019-03-19 16:17] LABS: ARTERIAL BLOOD PO2 34.1 mmHg (80-100)
[2019-03-19 19:17] LABS: ABSOLUTE BASOPHILS # (AUTO) 0.1 10^3/uL (0.0-0.2); ABSOLUTE EOSINOPHILS # (AUTO) 0.2 10^3/uL (0.0-0.6); ABSOLUTE LYMPHOCYTES (AUTO) 0.6 10^3/uL (0.5-4.7); ABSOLUTE MONOCYTES (AUTO) 0.9 10^3/uL (0.1-1.4); ABSOLUTE NEUT (AUTO) 6.5 10^3/uL (1.7-8.2); BASOPHILS % (AUTO) 0.7 % (0-2); EOSINOPHILS % (AUTO) 2.1 % (0-6); HEMATOCRIT 47.7 % (36.0-47.0); HEMOGLOBIN 15.8 g/dL (12.0-15.5); LYMPHOCYTES % (AUTO) 7.3 % (13-45); MEAN CORPUSCULAR HEMOGLOBIN 33.9 pg (27.0-33.4); MEAN CORPUSCULAR HGB CONC 33.3 g/dL (32.0-36.0); MEAN CORPUSCULAR VOLUME 102 fl (80-97); MONOCYTES % (AUTO) 10.6 % (3-13); PLATELET COUNT 121 10^3/uL (150-450); RED BLOOD COUNT 4.67 10^6/uL (3.72-5.28); RED CELL DISTRIBUTION WIDTH 14.9 % (11.5-14.0); SEGMENTED NEUTROPHILS % (AUTO) 79.3 % (42-78); TOTAL CELLS COUNTED % (AUTO) 100 %; WHITE BLOOD COUNT 8.2 10^3/uL (4.0-10.5)
[2019-03-19] MEDS: FAMOTIDINE 20 MG TABLET PO SCH (23:01)
[2019-03-19] MEDS: ATORVASTATIN CALCIUM 20 MG TABLET PO SCH (23:01)
[2019-03-19] MEDS: LIDOCAINE 5% (700 MG) TRANSDERMAL ADH..PATCH TP SCH (23:02)
[2019-03-19] MEDS: TEMAZEPAM 7.5 MG CAPSULE PO PRN (23:14)
[2019-03-20] MEDS: HEPARIN SOD (PORCINE) 5,000 UNIT/ML 1 ML VIAL SUBCUT SCH ×3 (05:53→21:24)
--- NOTE | 2019-03-20 07:51 | PDOC CONSULTATION ---
Consultation Consult Date: 03/18/19 Attending physician:: OLMAN KRUSE Provider Consulted: CATHIE GANDHI Consult reason:: L2 compression fracture History of Present Illness Admission Date/PCP: 03/14/19 03:32 Patient complains of: back pain History of Present Illness: RENETTA GUTIERRES is a 69 year old female with recent hospital admission for SOB and multiple falls seen in consultation. Patient was seen for acute back pain with L2 fracture found on imaging on admission. Patient notes recent lung mass found as well. She notes that she had multiple recent falls related to her SOB with one landing flat on her back about 10 days ago. She noted sudden sharp back pain, worse with moving and standing, improved with lying flat. She notes that lying flat and the pain medication she had received here has helped but still can't get up and work with PT. She denies any numbness or weakness in her legs. She notes difficulty making it to the restroom and currently has myers cather. She notes that she lives with roommate and her boyfriend and notes hasn't seen a doctor in many years. She notes current plans for further workup with Oncology at this time. She denies blood thinner usage in her medications but has been receiving ASA in house. Past Medical History Pulmonary Medical History: Reports: Other - PE at the age of 26 while on oral contraceptives. Psychiatric Medical History: Reports: Depression Past Surgical History Past Surgical History: Reports: Hysterectomy, Tubal Ligation, Other - Shoulder surgery Social History Lives with: Friend Smoking Status: Former Smoker Electronic Cigarette use?: Yes - Tried a few times Number of Years Smokin Last Time Smoked: 10/31/2017 Frequency of Alcohol Use: None Hx Recreational Drug Use: No Drugs: None - Able to abdomen doing Hx Prescription Drug Abuse: No - Advance Directive Resuscitation Status: Do Not Resuscitate Family History Family History: Other - Unknown to the patient Parental Family History Reviewed: No Children Family History Reviewed: NA Sibling(s) Family History Reviewed.: NA Medication/Allergy Home Medications: Naproxen Sodium [Aleve] 220 mg PO QID 03/14/19 Allergies/Adverse Reactions: Iodinated Contrast Media Allergy (Verified 03/13/19 22:44) Review of Systems All systems: reviewed and no additional remarkable complaints except as stated - acute low back benny Physical Exam Vital Signs: Temp Pulse Resp BP Pulse Ox 97.6 F 82 18 102/55 L 98 03/20/19 03:20 03/20/19 03:20 03/20/19 03:20 03/20/19 03:20 03/20/19 03:20 Intake & Output 03/19/19 03/20/19 03/21/19 06:59 06:59 06:59 Intake Total 571.2 1172.2 Output Total 575 2100 Balance -3.8 -927.8 Weight 44.8 kg 44.6 kg General appearance: PRESENT: no acute distress Head exam: PRESENT: atraumatic Eye exam: PRESENT: EOMI Neck exam: ABSENT: carotid bruit, JVD, lymphadenopathy, thyromegaly Respiratory exam: PRESENT: symmetrical Cardiovascular exam: PRESENT: RRR. ABSENT: diastolic murmur, rubs, systolic murmur Vascular exam: PRESENT: normal capillary refill Gentrourinary exam: PRESENT: indwelling catheter Musculoskeletal exam: PRESENT: full ROM Neurological exam: PRESENT: alert, altered, awake, oriented to person, oriented to place, oriented to time Psychiatric exam: PRESENT: anxious Skin exam: PRESENT: dry Additional comments: Noted L2 midline TTP, pain with roll and with attempted sitting up. ANSARI x 4 though with 5/5 strength Results Laboratory Results: 03/19/19 19:05 03/18/19 08:57 03/19/19 03/19/19 15:55 19:05 WBC 8.2 RBC 4.67 Hgb 15.8 H Hct 47.7 H MCV 102 H MCH 33.9 H MCHC 33.3 RDW 14.9 H Plt Count 121 L Seg Neutrophils % 79.3 H Carbonic Acid 1.85 H HCO3/H2CO3 Ratio 22:1 ABG pH 7.45 ABG pCO2 61.4 H ABG pO2 34.1 L* ABG HCO3 41.3 H ABG O2 Saturation 66.2 L ABG Base Excess 13.8 FiO2 21% 03/13/19 03/13/19 03/13/19 18:30 18:30 18:30 Creatine Kinase 63 45 CK-MB (CK-2) 7.00 H Troponin I NT-Pro-B Natriuret Pep 63547 H 03/14/19 03/14/19 03/14/19 02:15 02:15 09:45 Creatine Kinase 39 CK-MB (CK-2) 4.67 H Troponin I 0.591 Cancelled NT-Pro-B Natriuret Pep 03/14/19 03/14/19 03/14/19 09:45 15:12 15:12 Creatine Kinase 32 CK-MB (CK-2) 4.28 3.04 Troponin I 0.472 0.476 NT-Pro-B Natriuret Pep Impressions: Lung Scan-VQ NM 03/13/19 00:00 IMPRESSION: Low probability for PE copyright 2011 [employer]- All Rights Reserved Lumbar Spine X-Ray 03/13/19 18:49 IMPRESSION: Minimal compression of the L2 vertebral body, age undetermined. Lumbar Spine CT 03/13/19 22:20 IMPRESSION: Acute fracture of the inferior aspect of L2 with mild loss of height. Bilateral pleural effusions and basilar atelectasis Fluid in the pelvis. Thoracentesis Ultrasound 03/16/19 00:00 IMPRESSION: SUCCESSFUL THORACENTESIS USING ULTRASOUND GUIDANCE. Chest X-Ray 03/16/19 14:15 IMPRESSION: No postprocedural pneumothorax. Chest CT 03/17/19 10:00 IMPRESSION: 33 x 38 mm suprahilar mass on the left. Extensive pulmonary emph ysema. Bilateral pleural effusions. Assessment & Plan - Diagnosis (1) Compression fracture of L2 Qualifiers: Encounter type: initial encounter Qualified Code(s): S32.020A - Wedge compr ession fracture of second lumbar vertebra, initial encounter for closed fracture Is this a current diagnosis for this admission?: Yes Plan: Discussion with regard to her finding of L2 fracture. Exam and history consistent with acute fracture and review of CT. Will plan on bone scan and consideration for Osteocool, biopsy and Kyphoplasty. Will hold ASA and monitor her Platelet count. Will plan on this procedure once 7 days post ASA (Saturday 03/24). Patient amenable to plan. Will plan on PT at that time and will continue f/u with Oncology for her workup. - Time Time Spent: 30 to 50 Minutes Medications reviewed and adjusted accordingly: Yes
[2019-03-20] MEDS: IPRATROPIUM/ALBUTEROL 0.5-2.5 MG/3 ML AMPUL NEB SCH ×2 (07:59→20:04)
--- NOTE | 2019-03-20 08:10 | PDOC PROGRESS REPORT ---
Subjective Progress Note for:: 03/20/19 Subjective:: Patient sleeping peacefully and does not arouse to voice. Nurses and staff state that patient has remained stable. Kyphoplasty is planned in a few days. Then bronchoscopy. Reason For Visit: ACUTE ON CHRONIC COPD, ACUTE HEART FAILURE, Physical Exam Vital Signs: Temp Pulse Resp BP Pulse Ox 97.6 F 79 18 102/55 L 98 03/20/19 03:20 03/20/19 07:00 03/20/19 03:20 03/20/19 03:20 03/20/19 03:20 Intake & Output 03/19/19 03/20/19 03/21/19 06:59 06:59 06:59 Intake Total 571.2 1172.2 Output Total 575 2100 Balance -3.8 -927.8 Weight 44.8 kg 44.6 kg General appearance: PRESENT: no acute distress, thin, well-developed Head exam: PRESENT: normocephalic Respiratory exam: PRESENT: unlabored Pulses: PRESENT: normal radial pulses Extremities exam: ABSENT: pedal edema Skin exam: PRESENT: normal color Results Laboratory Results: 03/19/19 19:05 03/18/19 08:57 03/19/19 03/19/19 15:55 19:05 WBC 8.2 RBC 4.67 Hgb 15.8 H Hct 47.7 H MCV 102 H MCH 33.9 H MCHC 33.3 RDW 14.9 H Plt Count 121 L Seg Neutrophils % 79.3 H Carbonic Acid 1.85 H HCO3/H2CO3 Ratio 22:1 ABG pH 7.45 ABG pCO2 61.4 H ABG pO2 34.1 L* ABG HCO3 41.3 H ABG O2 Saturation 66.2 L ABG Base Excess 13.8 FiO2 21% 03/13/19 03/13/19 03/13/19 18:30 18:30 18:30 Creatine Kinase 63 45 CK-MB (CK-2) 7.00 H Troponin I NT-Pro-B Natriuret Pep 64815 H 03/14/19 03/14/19 03/14/19 02:15 02:15 09:45 Creatine Kinase 39 CK-MB (CK-2) 4.67 H Troponin I 0.591 Cancelled NT-Pro-B Natriuret Pep 03/14/19 03/14/19 03/14/19 09:45 15:12 15:12 Creatine Kinase 32 CK-MB (CK-2) 4.28 3.04 Troponin I 0.472 0.476 NT-Pro-B Natriuret Pep Impressions: Lung Scan-VQ NM 03/13/19 00:00 IMPRESSION: Low probability for PE copyright 2011 [employer]- All Rights Reserved Lumbar Spine X-Ray 03/13/19 18:49 IMPRESSION: Minimal compression of the L2 vertebral body, age undetermined. Lumbar Spine CT 03/13/19 22:20 IMPRESSION: Acute fracture of the inferior aspect of L2 with mild loss of height. Bilateral pleural effusions and basilar atelectasis Fluid in the pelvis. Thoracentesis Ultrasound 03/16/19 00:00 IMPRESSION: SUCCESSFUL THORACENTESIS USING ULTRASOUND GUIDANCE. Chest X-Ray 03/16/19 14:15 IMPRESSION: No postprocedural pneumothorax. Chest CT 03/17/19 10:00 IMPRESSION: 33 x 38 mm suprahilar mass on the left. Extensive pulmonary emphysema. Bilateral pleural effusions. Assessment & Plan - Diagnosis (1) Compression fracture of L2 Qualifiers: Encounter type: initial encounter Qualified Code(s): S32.020A - Wedge compression fracture of second lumbar vertebra, initial encounter for closed fracture Is this a current diagnosis for this admission?: Yes Plan: Agree with plans for Kyphoplasty (2) Polycythemia Is this a current diagnosis for this admission?: Yes Plan: Secondary to chronic hypoxia. Has been slowly improving. (3) Lung mass Is this a current diagnosis for this admission?: Yes Plan: Patient considering bronchoscopy. Will need PD-L1 testing if possible on the specimen. Pleural fluid was negative for malignancy. Await bone scan results. Consider adding Denosumab for bone health if bone scan positive, and after kyphoplasty. - Time Time Spent with patient: Less than 15 minutes
[2019-03-20] MEDS: POTASSIUM CHLORIDE 20 MEQ PACKET PO SCH ×2 (11:28→21:33)
[2019-03-20] MEDS: FUROSEMIDE INJ/PF 40 MG/4 ML SDV IV SCH (11:28)
[2019-03-20] MEDS: CYANOCOBALAMIN (VITAMIN B-12) 1,000 MCG TABLET PO SCH (11:28)
[2019-03-20] MEDS: THIAMINE HCL 100 MG, FOLIC ACID 1 MG in NORMAL SALINE 250 ML IV SCH (11:29)
[2019-03-20] MEDS: DOCUSATE SODIUM 100 MG CAPSULE PO SCH (11:29)
[2019-03-20] MEDS: BUPROPION HCL 75 MG TABLET PO SCH ×2 (11:30→21:34)
--- NOTE | 2019-03-20 14:05 | RADIOLOGY REPORT (SQ) ---
EXAM DESCRIPTION: NM WHOLE BODY BONE SCAN COMPLETED DATE/TIME: 03/20/2019 1:37 pm REASON FOR STUDY: L2 Fracture, Concerning Lung Lesion S32.020A WEDGE COMPRESSION FRACTURE OF SECOND LUMBAR VERTEBR COMPARISON: CT chest 03/17/2019 RADIONUCLIDE AND DOSE: 20 millicuries Tc99m HDP. The route of agent administration: Intravenous. ADDITIONAL DRUGS AND DOSES: None. TECHNIQUE: Routine delayed images at 3 hours post radionuclide injection acquired of the bony skelet on including anterior and posterior whole-body projections and additional focused images as needed. LIMITATIONS: None. FINDINGS: BONES: There is uptake in the upper lumbar spine associated with acute compression changes . There is uptake in the upper thoracic spine associated with old compression changes. There is foc al uptake in the right acetabulum and in the right superior pubic ramus. KIDNEYS: Symmetric excretion without obstruction. OTHER: No other significant finding. IMPRESSION: There is uptake in the spine associated with compression fractures. There is uptake in the right acetabulum that could be degenerative. There is uptake in the superior pubic ramus that co uld be posttraumatic. Cannot entirely exclude metastatic disease. COMMENT: Quality measure 147: Current bone scan is compared with any available plain radiographs, p rior bone scans, and CT/MRI. TECHNICAL DOCUMENTATION: JOB ID: [id number] 1764 [employer]- All Rights Reserved Reading location - IP/workstation name: [email or web address]
--- NOTE | 2019-03-20 14:18 | PDOC PROGRESS REPORT ---
Subjective Progress Note for:: 03/20/19 Subjective:: No adverse events overnight. No new complaints. She is as long as she stays still she is comfortable. Breathing feels comfortable. She is eating fairly well. She had a bowel movement last night that appeared to have some blood in it but her hemoglobin checked afterwards is actually higher than it was yesterday morning. It has not happened again since. Reason For Visit: ACUTE ON CHRONIC COPD, ACUTE HEART FAILURE, Physical Exam Vital Signs: Temp Pulse Resp BP Pulse Ox 97.3 F 97 18 110/52 L 89 L 03/20/19 08:39 03/20/19 08:39 03/20/19 08:39 03/20/19 08:39 03/20/19 08:39 Intake & Output 03/19/19 03/20/19 03/21/19 06:59 06:59 06:59 Intake Total 571.2 1172.2 Output Total 575 2100 Balance -3.8 -927.8 Weight 44.8 kg 44.6 kg General appearance: PRESENT: no acute distress, cooperative, disheveled, thin Respiratory exam: PRESENT: decreased breath sounds, prolonged expiratory phas - Slightly, symmetrical, unlabored. ABSENT: accessory muscle use, chest wall tenderness, crackles, rhonchi, tachypnea, wheezes Cardiovascular exam: PRESENT: RRR, +S1, +S2 Pulses: PRESENT: normal carotid pulses Vascular exam: PRESENT: normal capillary refill GI/Abdominal exam: PRESENT: normal bowel sounds, soft. ABSENT: distended, guarding, rebound, tenderness Extremities exam: ABSENT: clubbing, pedal edema Musculoskeletal exam: PRESENT: normal inspection. ABSENT: deformity Neurological exam: PRESENT: alert, awake, oriented to person, oriented to place, oriented to situation Psychiatric exam: PRESENT: appropriate affect, normal mood Skin exam: PRESENT: dry, warm Results Laboratory Results: 03/19/19 19:05 03/18/19 08:57 03/19/19 03/19/19 15:55 19:05 WBC 8.2 RBC 4.67 Hgb 15.8 H Hct 47.7 H MCV 102 H MCH 33.9 H MCHC 33.3 RDW 14.9 H Plt Count 121 L Seg Neutrophils % 79.3 H Carbonic Acid 1.85 H HCO3/H2CO3 Ratio 22:1 ABG pH 7.45 ABG pCO2 61.4 H ABG pO2 34.1 L* ABG HCO3 41.3 H ABG O2 Saturation 66.2 L ABG Base Excess 13.8 FiO2 21% 03/16/19 12:00 Pleural Fluid - Not Specified Gram Stain - Final 03/16/19 12:00 Pleural Fluid - Not Specified Body Fluid Culture - Final NO AEROBIC OR ANAEROBIC ORGANISMS RECOVERED 03/13/19 03/13/19 03/13/19 18:30 18:30 18:30 Creatine Kinase 63 45 CK-MB (CK-2) 7.00 H Troponin I NT-Pro-B Natriuret Pep [id number] H 03/14/19 03/14/19 03/14/19 02:15 02:15 09:45 Creatine Kinase 39 CK-MB (CK-2) 4.67 H Troponin I 0.591 Cancelled NT-Pro-B Natriuret Pep 03/14/19 03/14/19 03/14/19 09:45 15:12 15:12 Creatine Kinase 32 CK-MB (CK-2) 4.28 3.04 Troponin I 0.472 0.476 NT-Pro-B Natriuret Pep Impressions: Lung Scan-VQ NM 03/13/19 00:00 IMPRESSION: Low probability for PE copyright 2011 [employer]- All Rights Reserved Lumbar Spine X-Ray 03/13/19 18:49 IMPRESSION: Minimal compression of the L2 vertebral body, age undetermined. Lumbar Spine CT 03/13/19 22:20 IMPRESSION: Acute fracture of the inferior aspect of L2 with mild loss of height. Bilateral pleural effusions and basilar atelectasis Fluid in the pelvis. Thoracentesis Ultrasound 03/16/19 00:00 IMPRESSION: SUCCESSFUL THORACENTESIS USING ULTRASOUND GUIDANCE. Chest X-Ray 03/16/19 14:15 IMPRESSION: No postprocedural pneumothorax. Chest CT 03/17/19 10:00 IMPRESSION: 33 x 38 mm suprahilar mass on the left. Extensive pulmonary emphysema. Bilateral pleural effusions. Body Scan Nuclear Medicine 03/20/19 08:00 IMPRESSION: There is uptake in the spine associated with compression fractures. There is uptake in the right acetabulum that could be degenerative. There is uptake in the superior pubic ramus that could be posttraumatic. Cannot entirely exclude metastatic disease. Assessment and Plan - Diagnosis (1) Acute respiratory failure with hypoxia and hypercapnia Is this a current diagnosis for this admission?: Yes Plan: combination of her COPD and the pleural effusion as well as cor pulmonale. Continue oxygen supplementation. Patient appears to be stable. (2) Compression fracture of L2 Qualifiers: Encounter type: initial encounter Qualified Code(s): S32.020A - Wedge compression fracture of second lumbar vertebra, initial encounter for closed fracture Is this a current diagnosis for this admission?: Yes Plan: Kyphoplasty planned for later in the week, pain management has been consulted (3) Mass of left lung Is this a current diagnosis for this admission?: Yes Plan: Oncology following, bronchoscopy being planned at some point in the future for biopsy, pleural fluid cytology was negative (4) Hematochezia Is this a current diagnosis for this admission?: Yes Plan: She had one episode, it was painless. It does not happen again. She is never had a colonoscopy. This will likely need to be evaluated at some point in the future, but unless it happens again or her hemoglobin drops we will plan on having this looked into at some point after her kyphoplasty and her bronchoscopy. - Plan Summary Summary: 03/17/2019-the patient has a 3 to 4 cm mass at the left hilum. I had a long discussion with the patient at the bedside. The day shift and rhic systems safety engineer nurses were present. The patient is upset but not surprised by the news. She is afraid of pain and is alone. She is somewhat despondent. She is not sure that she wants to go through with any aggressive therapy. She has had multiple relatives from cancer. She seldom suffering she is not sure if she wants this. I told her not to make premature decisions. We need to obtain a biopsy to make sure that it is cancer. Based on her overall clinical presentation it is most likely a malignancy. I explained to her that there are many different types of lung cancer. Some are much more amenable to treatment than others. Some of the new chemotherapeutic regimens are not nearly as older regimens but this will be dependent on the tumor type. Dr. Escalante is following the patient. I explained to the patient that some of the work-up will be done as an outpatient. She will likely need to go home on oxygen. Pain is the rate limiting factor with therapy. I believe the sooner we can get the kyphoplasty performed the sooner we can mobilize the patient and then start planning discharge and work-up as an outpatient. - Time Time Spent with patient: 15-24 minutes
[2019-03-20] MEDS: LIDOCAINE 5% (700 MG) TRANSDERMAL ADH..PATCH TP SCH (21:26)
[2019-03-20] MEDS: TEMAZEPAM 7.5 MG CAPSULE PO PRN (21:33)
[2019-03-20] MEDS: FAMOTIDINE 20 MG TABLET PO SCH (21:33)
[2019-03-20] MEDS: MAG HYDROX/AL HYDROX/SIMETH SUSP 30 ML UDCUP PO PRN (21:33)
[2019-03-20] MEDS: ATORVASTATIN CALCIUM 20 MG TABLET PO SCH (21:33)
[2019-03-21] MEDS: MORPHINE SULFATE 10 MG/ML INJ IV PRN ×2 (02:04→18:00)
[2019-03-21 03:09] LABS: ABSOLUTE EOSINOPHILS # (AUTO) 0.2 10^3/uL (0.0-0.6); ABSOLUTE LYMPHOCYTES (AUTO) 0.7 10^3/uL (0.5-4.7); ABSOLUTE MONOCYTES (AUTO) 0.8 10^3/uL (0.1-1.4); ABSOLUTE NEUT (AUTO) 5.7 10^3/uL (1.7-8.2); BASOPHILS % (AUTO) 0.6 % (0-2); EOSINOPHILS % (AUTO) 2.6 % (0-6); HEMATOCRIT 42.8 % (36.0-47.0); HEMOGLOBIN 14.4 g/dL (12.0-15.5); LYMPHOCYTES % (AUTO) 9.3 % (13-45); MEAN CORPUSCULAR HGB CONC 33.5 g/dL (32.0-36.0); MEAN CORPUSCULAR VOLUME 101 fl (80-97); MONOCYTES % (AUTO) 11.1 % (3-13); PLATELET COUNT 125 10^3/uL (150-450); RED BLOOD COUNT 4.23 10^6/uL (3.72-5.28); RED CELL DISTRIBUTION WIDTH 14.5 % (11.5-14.0); SEGMENTED NEUTROPHILS % (AUTO) 76.4 % (42-78); TOTAL CELLS COUNTED % (AUTO) 100 %; WHITE BLOOD COUNT 7.5 10^3/uL (4.0-10.5)
[2019-03-21 03:42] LABS: BLOOD UREA NITROGEN 23 mg/dL (7-20); CALCIUM 8.3 mg/dL (8.4-10.2); CARBON DIOXIDE 36 mmol/L (22-30); CHLORIDE 99 mmol/L (98-107); GLUCOSE 87 mg/dL (75-110)
[2019-03-21] MEDS: MAG HYDROX/AL HYDROX/SIMETH SUSP 30 ML UDCUP PO PRN ×2 (03:52→10:01)
[2019-03-21 03:55] LABS: ANION GAP 2 (5-19)
--- NOTE | 2019-03-21 04:58 | RADIOLOGY REPORT (SQ) ---
EXAM DESCRIPTION: XR CHEST 1 VIEW COMPLETED DATE/TME: 03/21/2019 03:50 CLINICAL HISTORY: 69 years, Female, Chest pain COMPARISON: CT dated 03/17/2019 NUMBER OF VIEWS: One TECHNIQUE: AP view of the chest LIMITATIONS: None. FINDINGS: The lungs are emphysematous with bibasilar airspace opacities and bilateral pleural effusions. There is a stable left apical mass. The heart is normal in size. There is no pneumothorax. The bones are demineralized. IMPRESSION: Emphysematous lungs with bibasilar airspace opacities and bilateral pleural effusions. Persistent left apical mass. copyright 2010 [employer]- All Rights Reserved
[2019-03-21] MEDS: HEPARIN SOD (PORCINE) 5,000 UNIT/ML 1 ML VIAL SUBCUT SCH ×3 (05:18→22:15)
[2019-03-21 07:13] LABS: CREATINE KINASE MB 0.84 ng/mL (<4.55); TROPONIN I 0.041 ng/mL
--- NOTE | 2019-03-21 07:40 | EKG REPORT ---
SEVERITY:- ABNORMAL ECG - SINUS RHYTHM RIGHT BUNDLE BRANCH BLOCK : Confirmed by: Steven Hebert MD 21-Mar-2019 07:39:55
[2019-03-21] MEDS: IPRATROPIUM/ALBUTEROL 0.5-2.5 MG/3 ML AMPUL NEB SCH ×2 (08:12→20:07)
[2019-03-21] MEDS: BUPROPION HCL 75 MG TABLET PO SCH ×2 (10:02→22:17)
[2019-03-21] MEDS: POTASSIUM CHLORIDE 20 MEQ PACKET PO SCH ×2 (10:02→22:18)
[2019-03-21] MEDS: DOCUSATE SODIUM 100 MG CAPSULE PO SCH (10:02)
[2019-03-21] MEDS: CYANOCOBALAMIN (VITAMIN B-12) 1,000 MCG TABLET PO SCH (10:02)
[2019-03-21] MEDS: PANTOPRAZOLE SODIUM 40 MG VIAL IV SCH ×2 (10:02→22:17)
[2019-03-21] MEDS: FUROSEMIDE INJ/PF 40 MG/4 ML SDV IV SCH (10:02)
[2019-03-21] MEDS: THIAMINE HCL 100 MG, FOLIC ACID 1 MG in NORMAL SALINE 250 ML IV SCH (10:03)
[2019-03-21 10:43] LABS: CREATINE KINASE MB 0.95 ng/mL (<4.55); TROPONIN I 0.04 ng/mL
--- NOTE | 2019-03-21 15:11 | PDOC PROGRESS REPORT ---
Subjective Progress Note for:: 03/21/19 Subjective:: No adverse events overnight. She was complaining of some chest pain but her EKG was unremarkable for any new findings, her troponin was lower than the previous ones have been checked this hospitalization, and her chest x-ray did not have any new findings. She apparently got some sort of antacid last night and it helped with her discomfort. When I asked her where it was, she put her hand on the middle of her chest to rub all over the front of her chest and into her right side. Reason For Visit: ACUTE ON CHRONIC COPD, ACUTE HEART FAILURE, Physical Exam Vital Signs: Temp Pulse Resp BP Pulse Ox 97.8 F 93 16 111/59 L 100 03/21/19 11:34 03/21/19 14:00 03/21/19 11:34 03/21/19 11:34 03/21/19 11:34 Intake & Output 03/20/19 03/21/19 03/22/19 06:59 06:59 06:59 Intake Total 1172.2 471.2 251.2 Output Total 2100 1200 Balance -927.8 -728.8 251.2 Weight 44.6 kg 45.5 kg General appearance: PRESENT: no acute distress, cooperative, disheveled, thin Respiratory exam: PRESENT: decreased breath sounds, prolonged expiratory phas - Slightly, symmetrical, unlabored. ABSENT: accessory muscle use, chest wall tenderness, crackles, rhonchi, tachypnea, wheezes Cardiovascular exam: PRESENT: RRR, +S1, +S2 Pulses: PRESENT: normal carotid pulses Vascular exam: PRESENT: normal capillary refill GI/Abdominal exam: PRESENT: normal bowel sounds, soft. ABSENT: distended, guarding, rebound, tenderness Extremities exam: ABSENT: clubbing, pedal edema Musculoskeletal exam: PRESENT: normal inspection. ABSENT: deformity Neurological exam: PRESENT: alert, awake, oriented to person, oriented to place, oriented to situation Psychiatric exam: PRESENT: appropriate affect, normal mood Skin exam: PRESENT: dry, warm Results Laboratory Results: 03/21/19 02:56 03/21/19 02:56 03/21/19 03/21/19 02:56 02:56 WBC 7.5 RBC 4.23 Hgb 14.4 Hct 42.8 MCV 101 H MCH 34.0 H MCHC 33.5 RDW 14.5 H Plt Count 125 L Seg Neutrophils % 76.4 Sodium 137.1 Potassium 5.0 Chloride 99 Carbon Dioxide 36 H Anion Gap 2 L BUN 23 H Creatinine 0.51 L Est GFR ( Amer) > 60 Glucose 87 Calcium 8.3 L 03/13/19 03/13/19 03/13/19 18:30 18:30 18:30 Creatine Kinase 63 45 CK-MB (CK-2) 7.00 H Troponin I NT-Pro-B Natriuret Pep [id number] H 03/14/19 03/14/19 03/14/19 02:15 02:15 09:45 Creatine Kinase 39 CK-MB (CK-2) 4.67 H Troponin I 0.591 Cancelled NT-Pro-B Natriuret Pep 03/14/19 03/14/19 03/14/19 09:45 15:12 15:12 Creatine Kinase 32 CK-MB (CK-2) 4.28 3.04 Troponin I 0.472 0.476 NT-Pro-B Natriuret Pep 03/21/19 03/21/19 03/21/19 05:48 05:48 09:47 Creatine Kinase < 20 L < 20 L CK-MB (CK-2) 0.84 Troponin I 0.041 NT-Pro-B Natriuret Pep 03/21/19 09:47 Creatine Kinase CK-MB (CK-2) 0.95 Troponin I 0.040 NT-Pro-B Natriuret Pep Impressions: Lung Scan-VQ NM 03/13/19 00:00 IMPRESSION: Low probability for PE copyright 2011 [employer]- All Rights Reserved Lumbar Spine X-Ray 03/13/19 18:49 IMPRESSION: Minimal compression of the L2 vertebral body, age undetermined. Lumbar Spine CT 03/13/19 22:20 IMPRESSION: Acute fracture of the inferior aspect of L2 with mild loss of height. Bilateral pleural effusions and basilar atelectasis Fluid in the pelvis. Thoracentesis Ultrasound 03/16/19 00:00 IMPRESSION: SUCCESSFUL THORACENTESIS USING ULTRASOUND GUIDANCE. Chest CT 03/17/19 10:00 IMPRESSION: 33 x 38 mm suprahilar mass on the left. Extensive pulmonary emphysema. Bilateral pleural effusions. Body Scan Nuclear Medicine 03/20/19 08:00 IMPRESSION: There is uptake in the spine associated with compression fractures. There is uptake in the right acetabulum that could be degenerative. There is uptake in the superior pubic ramus that could be posttraumatic. Cannot entirely exclude metastatic disease. Chest X-Ray 03/21/19 03:50 IMPRESSION: Emphysematous lungs with bibasilar airspace opacities and bilateral pleural effusions. Persistent left apical mass. copyright 2010 [employer]- All Rights Reserved Assessment and Plan - Diagnosis (1) Acute respiratory failure with hypoxia and hypercapnia Is this a current diagnosis for this admission?: Yes Plan: combination of her COPD and the pleural effusion as well as cor pulmonale. Continue oxygen supplementation. Patient appears to be stable. (2) Compression fracture of L2 Qualifiers: Encounter type: initial encounter Qualified Code(s): S32.020A - Wedge compression fracture of second lumbar vertebra, initial encounter for closed fracture Is this a current diagnosis for this admission?: Yes Plan: Kyphoplasty planned for later in the week, pain management has been consulted (3) Mass of left lung Is this a current diagnosis for this admission?: Yes Plan: Oncology following, bronchoscopy being planned at some point in the future for biopsy, pleural fluid cytology was negative (4) Hematochezia Is this a current diagnosis for this admission?: Yes Plan: She is never had a colonoscopy. This will likely need to be evaluated at some point in the future, but unless it happens again or her hemoglobin drops we will plan on having this looked into at some point after her kyphoplasty and her bronchoscopy. 03/20/2019: She had another episode last night, but it was a lesser magnitude. Hemoglobin remains in the normal range. She is not on any anticoagulants or antiplatelets. When she has her kyphoplasty, she will likely need to have this evaluated as well because she has not seen a doctor in over 40 years. - Plan Summary Summary: 03/17/2019-the patient has a 3 to 4 cm mass at the left hilum. I had a long discussion with the patient at the bedside. The day shift and strap buckler nurses were present. The patient is upset but not surprised by the news. She is afraid of pain and is alone. She is somewhat despondent. She is not sure that she wants to go through with any aggressive therapy. She has had multiple relatives from cancer. She seldom suffering she is not sure if she wants this. I told her not to make premature decisions. We need to obtain a biopsy to make sure that it is cancer. Based on her overall clinical presentation it is most likely a malignancy. I explained to her that there are many different types of lung cancer. Some are much more amenable to treatment than others. Some of the new chemotherapeutic regimens are not nearly as older regimens but this will be dependent on the tumor type. Dr. Escalante is following the patient. I explained to the patient that some of the work-up will be done as an outpatient. She will likely need to go home on oxygen. Pain is the rate limiting factor with therapy. I believe the sooner we can get the kyphoplasty performed the sooner we can mobilize the patient and then start planning discharge and work-up as an outpatient. - Time Time Spent with patient: 15-24 minutes
[2019-03-21] MEDS: LIDOCAINE 5% (700 MG) TRANSDERMAL ADH..PATCH TP SCH (22:15)
[2019-03-21] MEDS: ATORVASTATIN CALCIUM 20 MG TABLET PO SCH (22:17)
[2019-03-21] MEDS: FAMOTIDINE 20 MG TABLET PO SCH (22:17)
[2019-03-21] MEDS: TEMAZEPAM 7.5 MG CAPSULE PO PRN (22:17)
[2019-03-22] MEDS: HEPARIN SOD (PORCINE) 5,000 UNIT/ML 1 ML VIAL SUBCUT SCH ×2 (05:40→14:04)
[2019-03-22 05:45] LABS: INTERNATIONAL RATION (INR) 1.07; PARTIAL THROMBOPLASTIN TIME 29.2 SEC (23.5-35.8); PROTHROMBIN TIME 13.9 SEC (11.4-15.4)
[2019-03-22 08:01] LABS: APPEARANCE,URINE CLEAR; BILIRUBIN,URINE NEGATIVE (NEGATIVE); COLOR,URINE STRAW; GLUCOSE, URINE NEGATIVE (NEGATIVE); KETONES,URINE NEGATIVE (NEGATIVE); LEUKOCYTE ESTERASE,URINE NEGATIVE (NEGATIVE); NITRITE,URINE NEGATIVE (NEGATIVE); PROTEIN,URINE NEGATIVE (NEGATIVE); URINE SPECIFIC GRAVITY 1.003; UROBILINOGEN,URINE NEGATIVE mg/dL (<2.0)
[2019-03-22] MEDS: IPRATROPIUM/ALBUTEROL 0.5-2.5 MG/3 ML AMPUL NEB SCH ×2 (08:05→19:45)
[2019-03-22] MEDS: MORPHINE SULFATE 10 MG/ML INJ IV PRN ×4 (08:19→20:39)
[2019-03-22 09:10] LABS: HEMATOCRIT 38.9 % (36.0-47.0); HEMOGLOBIN 12.9 g/dL (12.0-15.5); MEAN CORPUSCULAR HGB CONC 33.2 g/dL (32.0-36.0); MEAN CORPUSCULAR VOLUME 103 fl (80-97); PLATELET COUNT 138 10^3/uL (150-450); RED CELL DISTRIBUTION WIDTH 14.3 % (11.5-14.0); WHITE BLOOD COUNT 6.9 10^3/uL (4.0-10.5)
[2019-03-22] MEDS: THIAMINE HCL 100 MG, FOLIC ACID 1 MG in NORMAL SALINE 250 ML IV SCH (10:10)
[2019-03-22] MEDS: FUROSEMIDE INJ/PF 40 MG/4 ML SDV IV SCH (10:11)
[2019-03-22] MEDS: BUPROPION HCL 75 MG TABLET PO SCH ×2 (10:11→22:05)
[2019-03-22] MEDS: POTASSIUM CHLORIDE 20 MEQ PACKET PO SCH ×2 (10:11→22:05)
[2019-03-22] MEDS: DOCUSATE SODIUM 100 MG CAPSULE PO SCH (10:11)
[2019-03-22] MEDS: PANTOPRAZOLE SODIUM 40 MG VIAL IV SCH ×2 (10:11→22:05)
[2019-03-22] MEDS: CYANOCOBALAMIN (VITAMIN B-12) 1,000 MCG TABLET PO SCH (10:11)
--- NOTE | 2019-03-22 17:41 | PDOC PROGRESS REPORT ---
Subjective Progress Note for:: 03/22/19 Subjective:: No adverse events overnight. Apparently she does have some trouble swallowing her medications last night, but she says she always has trouble with pills. She says she has not had any trouble with food. She ate her breakfast this morning and did not have any trouble swallowing any of that. She had another bowel movement yesterday that had a little bit of blood in it, but it looked dark. Reason For Visit: ACUTE ON CHRONIC COPD, ACUTE HEART FAILURE, Physical Exam Vital Signs: Temp Pulse Resp BP Pulse Ox 98.0 F 92 16 102/61 100 03/22/19 15:56 03/22/19 15:56 03/22/19 15:56 03/22/19 15:56 03/22/19 15:56 Intake & Output 03/21/19 03/22/19 03/23/19 06:59 06:59 06:59 Intake Total 471.2 551.2 251.2 Output Total 1200 1675 Balance -728.8 -1123.8 251.2 Weight 45.5 kg 45.6 kg 45.6 kg General appearance: PRESENT: no acute distress, cooperative, disheveled, thin Respiratory exam: PRESENT: decreased breath sounds, prolonged expiratory phas - Slightly, symmetrical, unlabored. ABSENT: accessory muscle use, chest wall tenderness, crackles, rhonchi, tachypnea, wheezes Cardiovascular exam: PRESENT: RRR, +S1, +S2 Pulses: PRESENT: normal carotid pulses Vascular exam: PRESENT: normal capillary refill GI/Abdominal exam: PRESENT: normal bowel sounds, soft. ABSENT: distended, guarding, rebound, tenderness Extremities exam: ABSENT: clubbing, pedal edema Musculoskeletal exam: PRESENT: normal inspection. ABSENT: deformity Neurological exam: PRESENT: alert, awake, oriented to person, oriented to place, oriented to situation Psychiatric exam: PRESENT: appropriate affect, normal mood Skin exam: PRESENT: dry, warm Results Laboratory Results: 03/22/19 04:54 03/21/19 02:56 03/22/19 03/22/19 04:54 06:00 WBC 6.9 RBC 3.80 Hgb 12.9 Hct 38.9 MCV 103 H MCH 34.0 H MCHC 33.2 RDW 14.3 H Plt Count 138 L Urine Color STRAW Urine Appearance CLEAR Urine pH 8.0 Ur Specific [place] 1.003 Urine Protein NEGATIVE Urine Glucose (UA) NEGATIVE Urine Ketones NEGATIVE Urine Blood NEGATIVE Urine Nitrite NEGATIVE Ur Leukocyte Esterase NEGATIVE Urine WBC (Auto) 0 Urine RBC (Auto) 0 03/13/19 03/13/19 03/13/19 18:30 18:30 18:30 Creatine Kinase 63 45 CK-MB (CK-2) 7.00 H Troponin I NT-Pro-B Natriuret Pep [id number] H 03/14/19 03/14/19 03/14/19 02:15 02:15 09:45 Creatine Kinase 39 CK-MB (CK-2) 4.67 H Troponin I 0.591 Cancelled NT-Pro-B Natriuret Pep 03/14/19 03/14/19 03/14/19 09:45 15:12 15:12 Creatine Kinase 32 CK-MB (CK-2) 4.28 3.04 Troponin I 0.472 0.476 NT-Pro-B Natriuret Pep 03/21/19 03/21/19 03/21/19 05:48 05:48 05:48 Creatine Kinase < 20 L CK-MB (CK-2) 0.84 Cancelled Troponin I 0.041 Cancelled NT-Pro-B Natriuret Pep 03/21/19 03/21/19 03/21/19 09:47 09:47 16:04 Creatine Kinase < 20 L < 20 L CK-MB (CK-2) 0.95 Troponin I 0.040 NT-Pro-B Natriuret Pep Impressions: Lung Scan-VQ NM 03/13/19 00:00 IMPRESSION: Low probability for PE copyright 2011 [employer]- All Rights Reserved Lumbar Spine X-Ray 03/13/19 18:49 IMPRESSION: Minimal compression of the L2 vertebral body, age undetermined. Lumbar Spine CT 03/13/19 22:20 IMPRESSION: Acute fracture of the inferior aspect of L2 with mild loss of height. Bilateral pleural effusions and basilar atelectasis Fluid in the pelvis. Thoracentesis Ultrasound 03/16/19 00:00 IMPRESSION: SUCCESSFUL THORACENTESIS USING ULTRASOUND GUIDANCE. Chest CT 03/17/19 10:00 IMPRESSION: 33 x 38 mm suprahilar mass on the left. Extensive pulmonary emphysema. Bilateral pleural effusions. Body Scan Nuclear Medicine 03/20/19 08:00 IMPRESSION: There is uptake in the spine associated with compression fractures. There is uptake in the right acetabulum that could be degenerative. There is uptake in the superior pubic ramus that could be posttraumatic. Cannot entirely exclude metastatic disease. Chest X-Ray 03/21/19 03:50 IMPRESSION: Emphysematous lungs with bibasilar airspace opacities and bilateral pleural effusions. Persistent left apical mass. copyright 2010 [employer]- All Rights Reserved Assessment and Plan - Diagnosis (1) Acute respiratory failure with hypoxia and hypercapnia Is this a current diagnosis for this admission?: Yes Plan: combination of her COPD and the pleural effusion as well as cor pulmonale. Continue oxygen supplementation. Patient appears to be stable. (2) Compression fracture of L2 Qualifiers: Encounter type: initial encounter Qualified Code(s): S32.020A - Wedge compression fracture of second lumbar vertebra, initial encounter for closed fracture Is this a current diagnosis for this admission?: Yes Plan: Kyphoplasty planned for later in the week, pain management has been consulted (3) Mass of left lung Is this a current diagnosis for this admission?: Yes Plan: Oncology following, bronchoscopy being planned at some point in the future for biopsy, pleural fluid cytology was negative (4) Hematochezia Is this a current diagnosis for this admission?: Yes Plan: Heparin has been discontinued. Blood counts are still good, but her hemoglobin has dropped some. Will likely get this evaluated when she is had a kyphoplasty so she will be able to tolerate the colonoscopy better. We will plan on doing this as long as her blood counts hold. This will probably need to be done before she has her bronchoscopy. - Plan Summary Summary: 03/17/2019-the patient has a 3 to 4 cm mass at the left hilum. I had a long discussion with the patient at the bedside. The day shift and travel registered nurse nicu nurses were present. The patient is upset but not surprised by the news. She is afraid of pain and is alone. She is somewhat despondent. She is not sure that she wants to go through with any aggressive therapy. She has had multiple relatives from cancer. She seldom suffering she is not sure if she wants this. I told her not to make premature decisions. We need to obtain a biopsy to make sure that it is cancer. Based on her overall clinical presentation it is most likely a malignancy. I explained to her that there are many different types of lung cancer. Some are much more amenable to treatment than others. Some of the new chemotherapeutic regimens are not nearly as older regimens but this will be dependent on the tumor type. Dr. Escalante is following the patient. I explained to the patient that some of the work-up will be done as an outpatient. She will likely need to go home on oxygen. Pain is the rate limiting factor with therapy. I believe the sooner we can get the kyphoplasty performed the sooner we can mobilize the patient and then start planning discharge and work-up as an outpatient. - Time Time Spent with patient: 15-24 minutes
[2019-03-22] MEDS: FAMOTIDINE 20 MG TABLET PO SCH (22:05)
[2019-03-22] MEDS: ATORVASTATIN CALCIUM 20 MG TABLET PO SCH (22:05)
[2019-03-22] MEDS: LIDOCAINE 5% (700 MG) TRANSDERMAL ADH..PATCH TP SCH (22:05)
[2019-03-23] MEDS: MORPHINE SULFATE 10 MG/ML INJ IV PRN ×4 (03:34→16:32)
[2019-03-23] MEDS: IPRATROPIUM/ALBUTEROL 0.5-2.5 MG/3 ML AMPUL NEB SCH ×2 (08:10→20:50)
[2019-03-23] MEDS: POTASSIUM CHLORIDE 20 MEQ PACKET PO SCH ×2 (10:10→21:54)
[2019-03-23] MEDS: PANTOPRAZOLE SODIUM 40 MG VIAL IV SCH ×2 (10:10→21:54)
[2019-03-23] MEDS: CYANOCOBALAMIN (VITAMIN B-12) 1,000 MCG TABLET PO SCH (10:10)
[2019-03-23] MEDS: BUPROPION HCL 75 MG TABLET PO SCH ×2 (10:17→21:56)
[2019-03-23] MEDS: DOCUSATE SODIUM 100 MG CAPSULE PO SCH (10:17)
[2019-03-23] MEDS: THIAMINE HCL 100 MG, FOLIC ACID 1 MG in NORMAL SALINE 250 ML IV SCH (10:20)
--- NOTE | 2019-03-23 14:45 | PDOC PROGRESS REPORT ---
Subjective Progress Note for:: 03/23/19 Subjective:: No adverse events overnight. No new complaints. He eating and drinking without difficulty. She continues to have some dark blood in her stool. Reason For Visit: ACUTE ON CHRONIC COPD, ACUTE HEART FAILURE, Physical Exam Vital Signs: Temp Pulse Resp BP Pulse Ox 97.7 F 74 18 93/44 L 90 L 03/23/19 12:25 03/23/19 12:25 03/23/19 12:25 03/23/19 12:25 03/23/19 12:25 Intake & Output 03/22/19 03/23/19 03/24/19 06:59 06:59 06:59 Intake Total 551.2 734.2 Output Total 1675 1050 Balance -1123.8 -315.8 Weight 45.6 kg 45.3 kg General appearance: PRESENT: no acute distress, cooperative, disheveled, thin Respiratory exam: PRESENT: decreased breath sounds, prolonged expiratory phas - Slightly, symmetrical, unlabored. ABSENT: accessory muscle use, chest wall tenderness, crackles, rhonchi, tachypnea, wheezes Cardiovascular exam: PRESENT: RRR, +S1, +S2 Pulses: PRESENT: normal carotid pulses Vascular exam: PRESENT: normal capillary refill GI/Abdominal exam: PRESENT: normal bowel sounds, soft. ABSENT: distended, guarding, rebound, tenderness Extremities exam: ABSENT: clubbing, pedal edema Musculoskeletal exam: PRESENT: normal inspection. ABSENT: deformity Neurological exam: PRESENT: alert, awake, oriented to person, oriented to place, oriented to situation Psychiatric exam: PRESENT: appropriate affect, normal mood Skin exam: PRESENT: dry, warm Results Laboratory Results: 03/22/19 04:54 03/21/19 02:56 03/13/19 03/13/19 03/13/19 18:30 18:30 18:30 Creatine Kinase 63 45 CK-MB (CK-2) 7.00 H Troponin I NT-Pro-B Natriuret Pep 15222 H 03/14/19 03/14/19 03/14/19 02:15 02:15 09:45 Creatine Kinase 39 CK-MB (CK-2) 4.67 H Troponin I 0.591 Cancelled NT-Pro-B Natriuret Pep 03/14/19 03/14/19 03/14/19 09:45 15:12 15:12 Creatine Kinase 32 CK-MB (CK-2) 4.28 3.04 Troponin I 0.472 0.476 NT-Pro-B Natriuret Pep 03/21/19 03/21/19 03/21/19 05:48 05:48 05:48 Creatine Kinase < 20 L CK-MB (CK-2) 0.84 Cancelled Troponin I 0.041 Cancelled NT-Pro-B Natriuret Pep 03/21/19 03/21/19 03/21/19 09:47 09:47 16:04 Creatine Kinase < 20 L < 20 L CK-MB (CK-2) 0.95 Troponin I 0.040 NT-Pro-B Natriuret Pep Impressions: Lung Scan-VQ NM 03/13/19 00:00 IMPRESSION: Low probability for PE copyright 2010 [employer]- All Rights Reserved Lumbar Spine X-Ray 03/13/19 18:49 IMPRESSION: Minimal compression of the L2 vertebral body, age undetermined. Lumbar Spine CT 03/13/19 22:20 IMPRESSION: Acute fracture of the inferior aspect of L2 with mild loss of height. Bilateral pleural effusions and basilar atelectasis Fluid in the pelvis. Thoracentesis Ultrasound 03/16/19 00:00 IMPRESSION: SUCCESSFUL THORACENTESIS USING ULTRASOUND GUIDANCE. Chest CT 03/17/19 10:00 IMPRESSION: 33 x 38 mm suprahilar mass on the left. Extensive pulmonary emphysema. Bilateral pleural effusions. Body Scan Nuclear Medicine 03/20/19 08:00 IMPRESSION: There is uptake in the spine associated with compression fractures. There is uptake in the right acetabulum that could be degenerative. There is uptake in the superior pubic ramus that could be posttraumatic. Cannot entirely exclude metastatic disease. Chest X-Ray 03/21/19 03:50 IMPRESSION: Emphysematous lungs with bibasilar airspace opacities and bilateral pleural effusions. Persistent left apical mass. copyright 2010 [employer]- All Rights Reserved Assessment and Plan - Diagnosis (1) Acute respiratory failure with hypoxia and hypercapnia Is this a current diagnosis for this admission?: Yes Plan: combination of her COPD and the pleural effusion as well as cor pulmonale. Continue oxygen supplementation. Patient appears to be stable. (2) Compression fracture of L2 Qualifiers: Encounter type: initial encounter Qualified Code(s): S32.020A - Wedge compression fracture of second lumbar vertebra, initial encounter for closed fracture Is this a current diagnosis for this admission?: Yes Plan: Kyphoplasty planned for later in the week, pain management has been consulted. Hopefully we can get this done so we can get her colonoscopy and a physical th erapy evaluation. (3) Mass of left lung Is this a current diagnosis for this admission?: Yes Plan: Oncology following, bronchoscopy being planned at some point in the future for biopsy, pleural fluid cytology was negative (4) Hematochezia Is this a current diagnosis for this admission?: Yes Plan: Heparin has been discontinued. Blood counts are still good, but her hemoglobin has dropped some. Will likely get this evaluated when she is had a kyphoplasty so she will be able to tolerate the colonoscopy better. We will plan on doing this as long as her blood counts hold. This will probably need to be done before she has her bronchoscopy. - Plan Summary Summary: 03/17/2019-the patient has a 3 to 4 cm mass at the left hilum. I had a long discussion with the patient at the bedside. The day shift and night time nanny nurses were present. The patient is upset but not surprised by the news. She is afraid of pain and is alone. She is somewhat despondent. She is not sure that she wants to go through with any aggressive therapy. She has had multiple relatives from cancer. She seldom suffering she is not sure if she wants this. I told her not to make premature decisions. We need to obtain a biopsy to make sure that it is cancer. Based on her overall clinical presentation it is most likely a malignancy. I explained to her that there are many different types of lung cancer. Some are much more amenable to treatment than others. Some of the new chemotherapeutic regimens are not nearly as older regimens but this will be dependent on the tumor type. Dr. Escalante is following the patient. I explained to the patient that some of the work-up will be done as an outpatient. She will likely need to go home on oxygen. Pain is the rate limiting factor with therapy. I believe the sooner we can get the kyphoplasty performed the sooner we can mobilize the patient and then start planning discharge and work-up as an outpatient. - Time Time Spent with patient: 15-24 minutes
[2019-03-23] MEDS ORDERED: GLUCAGON,HUMAN RECOMB 1 MG INJ SUBCUT PRN (19:01)
[2019-03-23] MEDS ORDERED: DEXTROSE 40% GEL 15 GM TUBE PO PRN ×2 (19:01)
[2019-03-23] MEDS ORDERED: DEXTROSE 50%-WATER 25 GM/50 ML DISP.SYRIN IV PRN ×2 (19:01)
[2019-03-23] MEDS: LIDOCAINE 5% (700 MG) TRANSDERMAL ADH..PATCH TP SCH (21:54)
[2019-03-23] MEDS: FAMOTIDINE 20 MG TABLET PO SCH (21:54)
[2019-03-23] MEDS: ATORVASTATIN CALCIUM 20 MG TABLET PO SCH (21:54)
[2019-03-24] MEDS: MORPHINE SULFATE 10 MG/ML INJ IV PRN ×6 (00:24→23:52)
[2019-03-24] MEDS: IPRATROPIUM/ALBUTEROL 0.5-2.5 MG/3 ML AMPUL NEB SCH ×2 (07:52→20:18)
--- NOTE | 2019-03-24 08:27 | PDOC PROGRESS REPORT ---
Subjective Progress Note for:: 03/24/19 Subjective:: Patient states that her kyphoplasty is scheduled for this morning. She is still having pain with movement, but pain meds are adequate. She has bouts of diarrhea, then no BM for several days. She is trying to move her muscles and exercise when she is not having pain. She is still short of breath. ROS: No cough. No difficulty voiding. No nausea. Some blood in stool. Reason For Visit: ACUTE ON CHRONIC COPD, ACUTE HEART FAILURE, Physical Exam Vital Signs: Temp Pulse Resp BP Pulse Ox 97.4 F 91 16 99/58 L 94 03/24/19 03:39 03/24/19 03:39 03/24/19 03:39 03/24/19 03:39 03/24/19 03:39 Intake & Output 03/23/19 03/24/19 03/25/19 06:59 06:59 06:59 Intake Total 734.2 571 Output Total 1050 875 Balance -315.8 -304 Weight 45.3 kg 45.2 kg General appearance: PRESENT: no acute distress, thin Exam: Still wearing her oxygen. Eye exam: PRESENT: EOMI Mouth exam: PRESENT: moist Respiratory exam: PRESENT: unlabored Extremities exam: ABSENT: pedal edema Neurological exam: PRESENT: alert, awake Psychiatric exam: PRESENT: appropriate affect Skin exam: PRESENT: normal color Results Laboratory Results: 03/22/19 04:54 03/21/19 02:56 03/13/19 03/13/19 03/13/19 18:30 18:30 18:30 Creatine Kinase 63 45 CK-MB (CK-2) 7.00 H Troponin I NT-Pro-B Natriuret Pep 39601 H 03/14/19 03/14/19 03/14/19 02:15 02:15 09:45 Creatine Kinase 39 CK-MB (CK-2) 4.67 H Troponin I 0.591 Cancelled NT-Pro-B Natriuret Pep 03/14/19 03/14/19 03/14/19 09:45 15:12 15:12 Creatine Kinase 32 CK-MB (CK-2) 4.28 3.04 Troponin I 0.472 0.476 NT-Pro-B Natriuret Pep 03/21/19 03/21/19 03/21/19 05:48 05:48 05:48 Creatine Kinase < 20 L CK-MB (CK-2) 0.84 Cancelled Troponin I 0.041 Cancelled NT-Pro-B Natriuret Pep 03/21/19 03/21/19 03/21/19 09:47 09:47 16:04 Creatine Kinase < 20 L < 20 L CK-MB (CK-2) 0.95 Troponin I 0.040 NT-Pro-B Natriuret Pep Impressions: Lung Scan-VQ NM 03/13/19 00:00 IMPRESSION: Low probability for PE copyright 2010 [employer]- All Rights Reserved Lumbar Spine X-Ray 03/13/19 18:49 IMPRESSION: Minimal compression of the L2 vertebral body, age undetermined. Lumbar Spine CT 03/13/19 22:20 IMPRESSION: Acute fracture of the inferior aspect of L2 with mild loss of height. Bilateral pleural effusions and basilar atelectasis Fluid in the pelvis. Thoracentesis Ultrasound 03/16/19 00:00 IMPRESSION: SUCCESSFUL THORACENTESIS USING ULTRASOUND GUIDANCE. Chest CT 03/17/19 10:00 IMPRESSION: 33 x 38 mm suprahilar mass on the left. Extensive pulmonary emph ysema. Bilateral pleural effusions. Body Scan Nuclear Medicine 03/20/19 08:00 IMPRESSION: There is uptake in the spine associated with compression fractures. There is uptake in the right acetabulum that could be degenerative. There is uptake in the superior pubic ramus that could be posttraumatic. Cannot entirely exclude metastatic disease. Chest X-Ray 03/21/19 03:50 IMPRESSION: Emphysematous lungs with bibasilar airspace opacities and bilateral pleural effusions. Persistent left apical mass. copyright 2010 [employer]- All Rights Reserved Assessment & Plan - Diagnosis (1) Compression fracture of L2 Qualifiers: Encounter type: initial encounter Qualified Code(s): S32.020A - Wedge compression fracture of second lumbar vertebra, initial encounter for closed fracture Is this a current diagnosis for this admission?: Yes Plan: Await Kyphoplasty later today. Continue pain medications. Hopefully may ambulate and increase strength after kyphoplasty. (2) Polycythemia Is this a current diagnosis for this admission?: Yes Plan: Improving. Continue oxygen. She has some blood in stool, but all blood thinners are on hold. (3) Lung mass Is this a current diagnosis for this admission?: Yes Plan: She will need Bronchoscopy and PET/CT after kyphoplasty. She may have these procedures as outpatient, if she is strong enough for discharge. However, I am hopeful that bronchoscopy will be done prior to discharge. She will need at least 6-10 CORE biopsy samples, if possible. - Time Time Spent with patient: 15-24 minutes - Plan Summary Plan Summary: Will be available as needed over the weekend. Please call with any questions or concerns. If discharge is planned, please let us know so follow-up can be arr anged.
[2019-03-24] MEDS: CYANOCOBALAMIN (VITAMIN B-12) 1,000 MCG TABLET PO SCH (09:28)
[2019-03-24] MEDS: BUPROPION HCL 75 MG TABLET PO SCH ×2 (09:28→21:32)
[2019-03-24] MEDS: THIAMINE HCL 100 MG, FOLIC ACID 1 MG in NORMAL SALINE 250 ML IV SCH (09:29)
[2019-03-24] MEDS: POTASSIUM CHLORIDE 20 MEQ PACKET PO SCH ×2 (09:33→21:36)
[2019-03-24] MEDS: DOCUSATE SODIUM 100 MG CAPSULE PO SCH (09:33)
[2019-03-24 09:35] LABS: HEMATOCRIT 32.9 % (36.0-47.0); HEMOGLOBIN 10.9 g/dL (12.0-15.5); MEAN CORPUSCULAR HEMOGLOBIN 33.6 pg (27.0-33.4); MEAN CORPUSCULAR HGB CONC 33.2 g/dL (32.0-36.0); MEAN CORPUSCULAR VOLUME 101 fl (80-97); PLATELET COUNT 192 10^3/uL (150-450); RED BLOOD COUNT 3.25 10^6/uL (3.72-5.28); RED CELL DISTRIBUTION WIDTH 13.9 % (11.5-14.0); WHITE BLOOD COUNT 8.3 10^3/uL (4.0-10.5)
[2019-03-24 09:47] LABS: ABSOLUTE BASOPHILS # (AUTO) 0.1 10^3/uL (0.0-0.2); ABSOLUTE EOSINOPHILS # (AUTO) 0.1 10^3/uL (0.0-0.6); ABSOLUTE MONOCYTES (AUTO) 0.6 10^3/uL (0.1-1.4); ABSOLUTE NEUT (AUTO) 6.2 10^3/uL (1.7-8.2); EOSINOPHILS % (AUTO) 1.6 % (0-6); HEMATOCRIT 31.3 % (36.0-47.0); HEMOGLOBIN 10.5 g/dL (12.0-15.5); LYMPHOCYTES % (AUTO) 12.2 % (13-45); MEAN CORPUSCULAR HEMOGLOBIN 34.1 pg (27.0-33.4); MEAN CORPUSCULAR HGB CONC 33.6 g/dL (32.0-36.0); MEAN CORPUSCULAR VOLUME 102 fl (80-97); PLATELET COUNT 194 10^3/uL (150-450); RED BLOOD COUNT 3.08 10^6/uL (3.72-5.28); RED CELL DISTRIBUTION WIDTH 14.2 % (11.5-14.0); SEGMENTED NEUTROPHILS % (AUTO) 78.2 % (42-78); TOTAL CELLS COUNTED % (AUTO) 100 %; WHITE BLOOD COUNT 7.9 10^3/uL (4.0-10.5)
[2019-03-24 09:53] LABS: INTERNATIONAL RATION (INR) 1.01; PROTHROMBIN TIME 13.3 SEC (11.4-15.4)
[2019-03-24 09:58] LABS: ANION GAP 8 (5-19); BLOOD UREA NITROGEN 29 mg/dL (7-20); CALCIUM 8.8 mg/dL (8.4-10.2); CARBON DIOXIDE 28 mmol/L (22-30); CHLORIDE 105 mmol/L (98-107); GLUCOSE 77 mg/dL (75-110); POTASSIUM 3.9 mmol/L (3.6-5.0)
[2019-03-24 10:24] LABS: ALBUMIN 2.8 g/dL (3.5-5.0); ALKALINE PHOSPHATASE 55 U/L (38-126); ANION GAP 7 (5-19); ASPARTATE AMINO TRANSFERASE 21 U/L (14-36); BILIRUBIN,DIRECT 0.3 mg/dL (0.0-0.4); BILIRUBIN,TOTAL 0.8 mg/dL (0.2-1.3); BLOOD UREA NITROGEN 27 mg/dL (7-20); CALCIUM 8.6 mg/dL (8.4-10.2); CARBON DIOXIDE 30 mmol/L (22-30); CHLORIDE 104 mmol/L (98-107); GLUCOSE 80 mg/dL (75-110); POTASSIUM 3.6 mmol/L (3.6-5.0); TOTAL PROTEIN 5.5 g/dL (6.3-8.2)
[2019-03-24] MEDS ORDERED: BACITRACIN ZINC OINTMENT 15 GM ONE (10:30)
[2019-03-24] MEDS ORDERED: LIDOCAINE 1% INJ-PF (10 MG/ML) 30 ML SDV ONE (10:30)
[2019-03-24] MEDS ORDERED: MIDAZOLAM 2 MG/2 ML INJ ONE ×2 (11:24→12:49)
[2019-03-24] MEDS ORDERED: FENTANYL CITRATE INJ/PF 100 MCG/2 ML AMPUL ONE (11:24)
[2019-03-24] MEDS ORDERED: KETAMINE HCL INJ 500 MG/10 ML VIAL ONE (11:24)
[2019-03-24] MEDS ORDERED: PROPOFOL INJ 200 MG/20 ML VIAL IV ONE (11:25)
[2019-03-24] MEDS ORDERED: CEFAZOLIN INJ 1 GM VIAL ONE (12:50)
[2019-03-24] MEDS ORDERED: DIPHENHYDRAMINE HCL 50 MG/ML VIAL IV PRN (13:16)
[2019-03-24] MEDS ORDERED: MEPERIDINE HCL/PF INJ 25 MG/1 ML DISP.SYRIN IV PRN (13:16)
[2019-03-24] MEDS ORDERED: FENTANYL CITRATE INJ/PF 100 MCG/2 ML AMPUL IV PRN (13:16)
[2019-03-24] MEDS ORDERED: PROMETHAZINE HCL INJ 25 MG/1 ML VIAL IV PRN (13:16)
--- NOTE | 2019-03-24 13:42 | Operative Report ---
Operative Report DATE OF SURGERY: 03/24/19 PREOPERATIVE DIAGNOSIS: lumbar L2 vertebral compression fracture POSTOPERATIVE DIAGNOSIS: lumbar L2 vertebral compression fracture OPERATION: Kyphoplasty with biopsy and ostecool L2 SURGEON: CATHIE GANDHI ANESTHESIA: LMAC TISSUE REMOVED OR ALTERED: biopsy of L2 Vertebral body COMPLICATIONS: none ESTIMATED BLOOD LOSS: 5cc INTRAOPERATIVE FINDINGS: lumbar L2 vertebral compression fracture PROCEDURE: DESCRIPTION OF PROCEDURE: The patient was taken to the preoperative suite, informed consent was obtained from the patient, and all appropriate preoperative documentation was completed. Intravenous access was obtained and the patient was moved to the operating room. A time out was performed with the patient, nurse and attending physician present in the operative suite. Prophylactic antibiotics were administered in the form of 1 gram Ancef preoperatively and less than one hour before incision. The patient was positioned prone and all pressure points were checked while the patient was awake. Monitored anesthesia care was subsequently induced by the anesthesia care provider. The L2 vertebral body was identified with fluoroscopic guidance. The skin overlying the target area was prepped with chlorhexidine x 3 and sterilely draped in the usual fashion maintaining meticulous sterile technique. Local anesthesia was obtained with a total of 5 ml of preservative free 1% Lidocaine. A stab incision was made 1 cm lateral of the lateral border of each pedicle at the level of the target vertebral body. A 10 gauge trocar was introduced safely through each pedicle just inside the target vertebral body. The stylet of the trocar was removed and a working cannula was left in place. A biopsy was obtained through each trocar. A drill was then inserted through both working cannulas, advanced under lateral fluoroscopic imaging, to a point just posterior to the anterior vertebral body wall. The drill was removed. The Osteocool stylets were then placed bilaterally and heated to 90 degrees celsius bilaterally. Once the osteocool was completed, the osteocool stylets were then removed and trocars replaced. The trocars were then removed and balloons (one in each pedicle) were inserted through the working cannula stopping posterior to the anterior vertebral body wall. The balloons were inflated with radiopaque drorem given iodinated contrast allergy. Lateral fluoroscopic images were obtained to confirm balloon inflation did not breach the superior or inferior endplates. A/P fluoroscopic images were obtained periodically to confirm that the lateral aguirre were not breached. PMMA bone cement was prepared and filled in bone filler cannulas. The balloons were deflated and removed. The cement filled cannulas were inserted through the working cannula to the anterior portion of the vertebral body. The cement cannula plungers were used to push .2 mL increments of cement into the vertebral body. Lateral fluoroscopic images were obtained at .2 mL increments to verify that the cement did not extravasate. A/P fluoroscopic views were taken at incrementally to verify that the cement did not extravasate laterally. A total of 2.6 ml of cement on left and 2.6 ml of cement instilled on right The bone cement cannulas were removed. Lateral fluoroscopic imaging confirmed that no cement migrated posteriorly up the working cannula. The working cannulas were removed and pressure was applied to the incision sites until adequate hemostasis was assured. The incision sites were then cleansed and steristrips placed. > COUNTS: > Final sponge and needle counts were correct. > > OPERATING ROOM DISPOSITION: > The patient was taken from the operating room to the recovery room in stable condition. > > FINAL DISPOSITION: > The patient was discharged from the PACU after appropriate discharge criteria were met back to the floor. > > FOLLOW UP: > The patient is to follow up in clinic in 7 to 10 days.
[2019-03-24] MEDS ORDERED: METOPROLOL TARTRATE PF/INJ 5 MG/5 ML SDV IV ONE (15:49)
--- NOTE | 2019-03-24 16:56 | RADIOLOGY REPORT (SQ) ---
EXAM DESCRIPTION: NO CHG FLUORO; L SPINE 2 VIEWS COMPLETED DATE/TIME: 03/24/2019 3:42 pm REASON FOR STUDY: KYPHOPLASTY L2 ASST WITH Fluoro IN OR S32.020A WEDGE COMPRESSION FRACTURE OF SECO ND LUMBAR VERTEBR COMPARISON: None. FLUOROSCOPY TIME: 1.9 minutes 32 images saved to PACS. TECHNIQUE: Intra-operative images acquired during surgical procedure to evaluate progress. NUMBER OF IMAGES: 32 LIMITATIONS: None. FINDINGS: Images from fluoro document kyphoplasty procedure at L2. IMPRESSION: Kyphoplasty. Refer to operative note for further information. COMMENT: Quality ID 145: Final reports for procedures using fluoroscopy that document radiation exp osure indices, or exposure time and number of fluorographic images (if radiation exposure indices are not available) Please consult full operative report of the attending physician for description of the procedure. TECHNICAL DOCUMENTATION: JOB ID: [id number] [employer]- All Rights Reserved Reading location - IP/workstation name: [email or web address]
--- NOTE | 2019-03-24 16:56 | RADIOLOGY REPORT (SQ) ---
EXAM DESCRIPTION: NO CHG FLUORO; L SPINE 2 VIEWS COMPLETED DATE/TIME: 03/24/2019 3:42 pm REASON FOR STUDY: KYPHOPLASTY L2 ASST WITH Fluoro IN OR S32.020A WEDGE COMPRESSION FRACTURE OF SECO ND LUMBAR VERTEBR COMPARISON: None. FLUOROSCOPY TIME: 1.9 minutes 32 images saved to PACS. TECHNIQUE: Intra-operative images acquired during surgical procedure to evaluate progress. NUMBER OF IMAGES: 32 LIMITATIONS: None. FINDINGS: Images from fluoro document kyphoplasty procedure at L2. IMPRESSION: Kyphoplasty. Refer to operative note for further information. COMMENT: Quality ID [id number]: Final reports for procedures using fluoroscopy that document radiation exp osure indices, or exposure time and number of fluorographic images (if radiation exposure indices are not available) Please consult full operative report of the attending physician for description of the procedure. TECHNICAL DOCUMENTATION: JOB ID: [id number] [employer]- All Rights Reserved Reading location - IP/workstation name: [email or web address]
--- NOTE | 2019-03-24 17:12 | PDOC PROGRESS REPORT ---
Subjective Progress Note for:: 03/24/19 Subjective:: No adverse events overnight. No new complaints. Vital signs been stable. She was n.p.o. this morning awaiting her procedure. That was done this afternoon. Reason For Visit: ACUTE ON CHRONIC COPD, ACUTE HEART FAILURE, Physical Exam Vital Signs: Temp Pulse Resp BP Pulse Ox 97.6 F 100 17 106/58 L 93 03/24/19 16:02 03/24/19 16:02 03/24/19 16:02 03/24/19 16:02 03/24/19 16:02 Intake & Output 03/23/19 03/24/19 03/25/19 06:59 06:59 06:59 Intake Total 734.2 571 601.2 Output Total 1050 875 200 Balance -315.8 -304 401.2 Weight 45.3 kg 45.2 kg General appearance: PRESENT: no acute distress, cooperative, disheveled, thin Respiratory exam: PRESENT: decreased breath sounds, prolonged expiratory phas - Slightly, symmetrical, unlabored. ABSENT: accessory muscle use, chest wall tenderness, crackles, rhonchi, tachypnea, wheezes Cardiovascular exam: PRESENT: RRR, +S1, +S2 Pulses: PRESENT: normal carotid pulses Vascular exam: PRESENT: normal capillary refill GI/Abdominal exam: PRESENT: normal bowel sounds, soft. ABSENT: distended, guarding, rebound, tenderness Extremities exam: ABSENT: clubbing, pedal edema Musculoskeletal exam: PRESENT: normal inspection. ABSENT: deformity Neurological exam: PRESENT: alert, awake, oriented to person, oriented to place, oriented to situation Psychiatric exam: PRESENT: appropriate affect, normal mood Skin exam: PRESENT: dry, warm Results Laboratory Results: 03/24/19 09:35 03/24/19 09:35 03/24/19 03/24/19 03/24/19 08:58 08:58 09:35 WBC 8.3 7.9 RBC 3.25 L 3.08 L Hgb 10.9 L 10.5 L Hct 32.9 L 31.3 L MCV 101 H 102 H MCH 33.6 H 34.1 H MCHC 33.2 33.6 RDW 13.9 14.2 H Plt Count 192 194 Seg Neutrophils % 78.2 H Sodium 140.8 Potassium 3.9 Chloride 105 Carbon Dioxide 28 Anion Gap 8 BUN 29 H Creatinine 0.38 L Est GFR ( Amer) > 60 Glucose 77 Calcium 8.8 Total Bilirubin AST Alkaline Phosphatase Total Protein Albumin 03/24/19 09:35 WBC RBC Hgb Hct MCV MCH MCHC RDW Plt Count Seg Neutrophils % Sodium 140.7 Potassium 3.6 Chloride 104 Carbon Dioxide 30 Anion Gap 7 BUN 27 H Creatinine 0.42 L Est GFR ( Amer) > 60 Glucose 80 Calcium 8.6 Total Bilirubin 0.8 AST 21 Alkaline Phosphatase 55 Total Protein 5.5 L Albumin 2.8 L 03/13/19 03/13/19 03/13/19 18:30 18:30 18:30 Creatine Kinase 63 45 CK-MB (CK-2) 7.00 H Troponin I NT-Pro-B Natriuret Pep 28800 H 03/14/19 03/14/19 03/14/19 02:15 02:15 09:45 Creatine Kinase 39 CK-MB (CK-2) 4.67 H Troponin I 0.591 Cancelled NT-Pro-B Natriuret Pep 03/14/19 03/14/19 03/14/19 09:45 15:12 15:12 Creatine Kinase 32 CK-MB (CK-2) 4.28 3.04 Troponin I 0.472 0.476 NT-Pro-B Natriuret Pep 03/21/19 03/21/19 03/21/19 05:48 05:48 05:48 Creatine Kinase < 20 L CK-MB (CK-2) 0.84 Cancelled Troponin I 0.041 Cancelled NT-Pro-B Natriuret Pep 03/21/19 03/21/19 03/21/19 09:47 09:47 16:04 Creatine Kinase < 20 L < 20 L CK-MB (CK-2) 0.95 Troponin I 0.040 NT-Pro-B Natriuret Pep Impressions: Lung Scan-VQ NM 03/13/19 00:00 IMPRESSION: Low probability for PE copyright 2011 [employer]- All Rights Reserved Lumbar Spine CT 03/13/19 22:20 IMPRESSION: Acute fracture of the inferior aspect of L2 with mild loss of height. Bilateral pleural effusions and basilar atelectasis Fluid in the pelvis. Thoracentesis Ultrasound 03/16/19 00:00 IMPRESSION: SUCCESSFUL THORACENTESIS USING ULTRASOUND GUIDANCE. Chest CT 03/17/19 10:00 IMPRESSION: 33 x 38 mm suprahilar mass on the left. Extensive pulmonary emphysema. Bilateral pleural effusions. Body Scan Nuclear Medicine 03/20/19 08:00 IMPRESSION: There is uptake in the spine associated with compression fractures. There is uptake in the right acetabulum that could be degenerative. There is uptake in the superior pubic ramus that could be posttraumatic. Cannot entirely exclude metastatic disease. Chest X-Ray 03/21/19 03:50 IMPRESSION: Emphysematous lungs with bibasilar airspace opacities and bilateral pleural effusions. Persistent left apical mass. copyright 2010 [employer]- All Rights Reserved Fluoroscopy 03/24/19 00:00 IMPRESSION: Kyphoplasty. Refer to operative note for further information. Lumbar Spine X-Ray 03/24/19 00:00 IMPRESSION: Kyphoplasty. Refer to operative note for further information. Assessment and Plan - Diagnosis (1) Acute respiratory failure with hypoxia and hypercapnia Is this a current diagnosis for this admission?: Yes Plan: combination of her COPD and the pleural effusion as well as cor pulmonale. Continue oxygen supplementation. Patient appears to be stable. (2) Compression fracture of L2 Qualifiers: Encounter type: initial encounter Qualified Code(s): S32.020A - Wedge compression fracture of second lumbar vertebra, initial encounter for closed fracture Is this a current diagnosis for this admission?: Yes Plan: She is now status post kyphoplasty. We will plan to mobilize her tomorrow. (3) Mass of left lung Is this a current diagnosis for this admission?: Yes Plan: Bronchoscopy is still pending, oncology is consulted. The bronchoscopy will probably be done after we get the colonoscopy. (4) Hematochezia Is this a current diagnosis for this admission?: Yes Plan: Now that she has had her kyphoplasty, we will get a surgical consultation for a colonoscopy. - Plan Summary Summary: 03/17/2019-the patient has a 3 to 4 cm mass at the left hilum. I had a long discussion with the patient at the bedside. The day shift and operation shift supervisor nurses were present. The patient is upset but not surprised by the news. She is afraid of pain and is alone. She is somewhat despondent. She is not sure that she wants to go through with any aggressive therapy. She has had multiple relatives from cancer. She seldom suffering she is not sure if she wants this. I told her not to make premature decisions. We need to obtain a biopsy to make sure that it is cancer. Based on her overall clinical presentation it is most likely a malignancy. I explained to her that there are many different types of lung cancer. Some are much more amenable to treatment than others. Some of the new chemotherapeutic regimens are not nearly as older regimens but this will be dependent on the tumor type. Dr. Escalante is following the patient. I explained to the patient that some of the work-up will be done as an outpatient. She will likely need to go home on oxygen. Pain is the rate limiting factor with therapy. I believe the sooner we can get the kyphoplasty performed the sooner we can mobilize the patient and then start planning discharge and work-up as an outpatient. - Time Time Spent with patient: 15-24 minutes
[2019-03-24] MEDS: FAMOTIDINE 20 MG TABLET PO SCH (21:32)
[2019-03-24] MEDS: ATORVASTATIN CALCIUM 20 MG TABLET PO SCH (21:32)
[2019-03-24] MEDS: LIDOCAINE 5% (700 MG) TRANSDERMAL ADH..PATCH TP SCH (21:32)
[2019-03-25] MEDS: IPRATROPIUM/ALBUTEROL 0.5-2.5 MG/3 ML AMPUL NEB SCH ×2 (07:54→19:45)
[2019-03-25] MEDS: MORPHINE SULFATE 10 MG/ML INJ IV PRN ×4 (08:12→23:31)
[2019-03-25] MEDS: BUPROPION HCL 75 MG TABLET PO SCH ×2 (09:24→21:53)
[2019-03-25] MEDS: THIAMINE HCL 100 MG, FOLIC ACID 1 MG in NORMAL SALINE 250 ML IV SCH (09:24)
[2019-03-25] MEDS: CYANOCOBALAMIN (VITAMIN B-12) 1,000 MCG TABLET PO SCH (09:24)
[2019-03-25] MEDS: DOCUSATE SODIUM 100 MG CAPSULE PO SCH (09:24)
[2019-03-25 10:17] LABS: HEMATOCRIT 27.5 % (36.0-47.0); HEMOGLOBIN 9.3 g/dL (12.0-15.5); MEAN CORPUSCULAR HEMOGLOBIN 34.3 pg (27.0-33.4); MEAN CORPUSCULAR HGB CONC 33.9 g/dL (32.0-36.0); MEAN CORPUSCULAR VOLUME 101 fl (80-97); PLATELET COUNT 204 10^3/uL (150-450); RED BLOOD COUNT 2.72 10^6/uL (3.72-5.28); WHITE BLOOD COUNT 9.7 10^3/uL (4.0-10.5)
--- NOTE | 2019-03-25 12:44 | PDOC CONSULTATION ---
Consultation Consult Date: 03/25/19 Provider Consulted: JOSE MIGUEL Consult reason:: GI bleed History of Present Illness Admission Date/PCP: 03/14/19 03:32 Patient complains of: History of lower GI bleed History of Present Illness: RENETTA GUTIERRES is a 69 year old female status post kyphoplasty. She claims she had 3 episodes of bloody diarrhea like stool in 1day about a few days prior to admission and subsequently noted to have fracture of L2 for which had kyphopla sty yesterday. She also a heavy smoker about 4 packs a day and stopped about a year ago and now has medial left lung mass. She just had thoracentesis of left pleural effusion but cytology was negative for cancer. She is scheduled for bronchoscopy and biopsy next week. Her hemoglobin is gradually been trending down from 15 on admission on 03/14/2019 two9.3 this morning. She never had a colonoscopy. She is not on any blood thinner medications when she had appears to be a lower GI bleed denies any abdominal pains or history of peptic ulcer disease. Past Medical History Pulmonary Medical History: Reports: Other - PE at the age of 26 while on oral co ntraceptives. Psychiatric Medical History: Reports: Depression Past Surgical History Past Surgical History: Reports: Hysterectomy, Tubal Ligation, Other - Shoulder surgery Social History Lives with: Friend Smoking Status: Former Smoker Electronic Cigarette use?: Yes - Tried a few times Number of Years Smokin Last Time Smoked: 10/31/2017 Frequency of Alcohol Use: None Hx Recreational Drug Use: No Drugs: None - Able to abdomen doing Hx Prescription Drug Abuse: No - Advance Directive Resuscitation Status: Full Code Family History Family History: Other - Unknown to the patient Parental Family History Reviewed: Yes Children Family History Reviewed: No Sibling(s) Family History Reviewed.: No Medication/Allergy Home Medications: Naproxen Sodium [Aleve] 220 mg PO QID 03/14/19 Allergies/Adverse Reactions: Iodinated Contrast Media Allergy (Verified 03/13/19 22:44) Review of Systems Constitutional: PRESENT: weakness, weight loss - She used to weigh about 129 pounds a year ago and now weighs about 100 pounds. Claims she gradually lost weight of 29 pounds in a year Cardiovascular: PRESENT: other - Denies cough no chest pain Gastrointestinal: PRESENT: diarrhea - Has occasional alternating diarrhea and constipation, other - Denies abdominal pain Musculoskeletal: PRESENT: back pain Physical Exam Vital Signs: Temp Pulse Resp BP Pulse Ox 98.0 F 106 H 18 106/56 L 90 L 03/25/19 07:35 03/25/19 07:54 03/25/19 07:54 03/25/19 07:35 03/25/19 07:54 Intake & Output 03/24/19 03/25/19 03/26/19 06:59 06:59 06:59 Intake Total 571 1021.2 251.2 Output Total 875 600 Balance -304 421.2 251.2 Weight 45.2 kg 45.5 kg General appearance: PRESENT: no acute distress Head exam: PRESENT: atraumatic Mouth exam: PRESENT: moist Neck exam: PRESENT: full ROM Respiratory exam: PRESENT: clear to auscultation christopher Cardiovascular exam: PRESENT: RRR Pulses: PRESENT: normal radial pulses Vascular exam: PRESENT: normal capillary refill GI/Abdominal exam: PRESENT: soft Rectal exam: PRESENT: deferred Extremities exam: PRESENT: full ROM Musculoskeletal exam: PRESENT: full ROM Neurological exam: PRESENT: alert, oriented to person, oriented to place, oriented to time, oriented to situation Psychiatric exam: PRESENT: appropriate affect Skin exam: PRESENT: normal color, warm Results Laboratory Results: 03/25/19 09:53 03/24/19 09:35 03/25/19 09:53 WBC 9.7 RBC 2.72 L Hgb 9.3 L Hct 27.5 L MCV 101 H MCH 34.3 H MCHC 33.9 RDW 14.0 Plt Count 204 03/13/19 03/13/19 03/13/19 18:30 18:30 18:30 Creatine Kinase 63 45 CK-MB (CK-2) 7.00 H Troponin I NT-Pro-B Natriuret Pep [id number] H 03/14/19 03/14/19 03/14/19 02:15 02:15 09:45 Creatine Kinase 39 CK-MB (CK-2) 4.67 H Troponin I 0.591 Cancelled NT-Pro-B Natriuret Pep 03/14/19 03/14/19 03/14/19 09:45 15:12 15:12 Creatine Kinase 32 CK-MB (CK-2) 4.28 3.04 Troponin I 0.472 0.476 NT-Pro-B Natriuret Pep 03/21/19 03/21/19 03/21/19 05:48 05:48 05:48 Creatine Kinase < 20 L CK-MB (CK-2) 0.84 Cancelled Troponin I 0.041 Cancelled NT-Pro-B Natriuret Pep 03/21/19 03/21/19 03/21/19 09:47 09:47 16:04 Creatine Kinase < 20 L < 20 L CK-MB (CK-2) 0.95 Troponin I 0.040 NT-Pro-B Natriuret Pep Impressions: Lung Scan-VQ NM 03/13/19 00:00 IMPRESSION: Low probability for PE copyright 2010 [employer]- All Rights Reserved Lumbar Spine CT 03/13/19 22:20 IMPRESSION: Acute fracture of the inferior aspect of L2 with mild loss of height. Bilateral pleural effusions and basilar atelectasis Fluid in the pelvis. Thoracentesis Ultrasound 03/16/19 00:00 IMPRESSION: SUCCESSFUL THORACENTESIS USING ULTRASOUND GUIDANCE. Chest CT 03/17/19 10:00 IMPRESSION: 33 x 38 mm suprahilar mass on the left. Extensive pulmonary emphysema. Bilateral pleural effusions. Body Scan Nuclear Medicine 03/20/19 08:00 IMPRESSION: There is uptake in the spine associated with compression fractures. There is uptake in the right acetabulum that could be degenerative. There is uptake in the superior pubic ramus that could be posttraumatic. Cannot entirely exclude metastatic disease. Chest X-Ray 03/21/19 03:50 IMPRESSION: Emphysematous lungs with bibasilar airspace opacities and bilateral pleural effusions. Persistent left apical mass. copyright 2010 [employer]- All Rights Reserved Fluoroscopy 03/24/19 00:00 IMPRESSION: Kyphoplasty. Refer to operative note for further information. Lumbar Spine X-Ray 03/24/19 00:00 IMPRESSION: Kyphoplasty. Refer to operative note for further information. Assessment & Plan - Diagnosis (1) Lower GI bleed Is this a current diagnosis for this admission?: Yes - Time Time Spent: 30 to 50 Minutes - Plan Summary Plan Summary: Assessment and plan: 69-year-old female is that seen a doctor in the past 40 years and never had a colonoscopy just had kyphoplasty yesterday for L2 fracture complained of 3 episodes of bloody diarrhea about a week prior to admission and then occasionally some dark stools. She also has left mediastinal mass suspicious for cancer with her history of 4 packs a day smoking until about a year ago. Her hemoglobin on admission was 15 on today's about 9. Her vital signs are stable. We will put her on bowel prep tomorrow and then lower endoscopy/EGD Wednesday.
--- NOTE | 2019-03-25 15:22 | PDOC PROGRESS REPORT ---
Subjective Progress Note for:: 03/25/19 Subjective:: No adverse events overnight. No new complaints. Her back is still little sore but it feels better since her kyphoplasty. She says she has not had a bowel movement today. Reason For Visit: ACUTE ON CHRONIC COPD, ACUTE HEART FAILURE, Physical Exam Vital Signs: Temp Pulse Resp BP Pulse Ox 98.2 F 94 16 92/47 L 96 03/25/19 11:39 03/25/19 11:39 03/25/19 11:39 03/25/19 11:39 03/25/19 11:39 Intake & Output 03/24/19 03/25/19 03/26/19 06:59 06:59 06:59 Intake Total 571 1021.2 251.2 Output Total 875 600 Balance -304 421.2 251.2 Weight 45.2 kg 45.5 kg General appearance: PRESENT: no acute distress, cooperative, disheveled, thin Respiratory exam: PRESENT: decreased breath sounds, prolonged expiratory phas - Slightly, symmetrical, unlabored. ABSENT: accessory muscle use, chest wall tenderness, crackles, rhonchi, tachypnea, wheezes Cardiovascular exam: PRESENT: RRR, +S1, +S2 Pulses: PRESENT: normal carotid pulses Vascular exam: PRESENT: normal capillary refill GI/Abdominal exam: PRESENT: normal bowel sounds, soft. ABSENT: distended, guarding, rebound, tenderness Extremities exam: ABSENT: clubbing, pedal edema Musculoskeletal exam: PRESENT: normal inspection. ABSENT: deformity Neurological exam: PRESENT: alert, awake, oriented to person, oriented to place, oriented to situation Psychiatric exam: PRESENT: appropriate affect, normal mood Skin exam: PRESENT: dry, warm Results Laboratory Results: 03/25/19 09:53 03/24/19 09:35 03/25/19 09:53 WBC 9.7 RBC 2.72 L Hgb 9.3 L Hct 27.5 L MCV 101 H MCH 34.3 H MCHC 33.9 RDW 14.0 Plt Count 204 03/13/19 03/13/19 03/13/19 18:30 18:30 18:30 Creatine Kinase 63 45 CK-MB (CK-2) 7.00 H Troponin I NT-Pro-B Natriuret Pep [id number] H 03/14/19 03/14/19 03/14/19 02:15 02:15 09:45 Creatine Kinase 39 CK-MB (CK-2) 4.67 H Troponin I 0.591 Cancelled NT-Pro-B Natriuret Pep 03/14/19 03/14/19 03/14/19 09:45 15:12 15:12 Creatine Kinase 32 CK-MB (CK-2) 4.28 3.04 Troponin I 0.472 0.476 NT-Pro-B Natriuret Pep 03/21/19 03/21/19 03/21/19 05:48 05:48 05:48 Creatine Kinase < 20 L CK-MB (CK-2) 0.84 Cancelled Troponin I 0.041 Cancelled NT-Pro-B Natriuret Pep 03/21/19 03/21/19 03/21/19 09:47 09:47 16:04 Creatine Kinase < 20 L < 20 L CK-MB (CK-2) 0.95 Troponin I 0.040 NT-Pro-B Natriuret Pep Impressions: Lung Scan-VQ NM 03/13/19 00:00 IMPRESSION: Low probability for PE copyright 2010 [employer]- All Rights Reserved Lumbar Spine CT 03/13/19 22:20 IMPRESSION: Acute fracture of the inferior aspect of L2 with mild loss of height. Bilateral pleural effusions and basilar atelectasis Fluid in the pelvis. Thoracentesis Ultrasound 03/16/19 00:00 IMPRESSION: SUCCESSFUL THORACENTESIS USING ULTRASOUND GUIDANCE. Chest CT 03/17/19 10:00 IMPRESSION: 33 x 38 mm suprahilar mass on the left. Extensive pulmonary emphysema. Bilateral pleural effusions. Body Scan Nuclear Medicine 03/20/19 08:00 IMPRESSION: There is uptake in the spine associated with compression fractures. There is uptake in the right acetabulum that could be degenerative. There is uptake in the superior pubic ramus that could be posttraumatic. Cannot entirely exclude metastatic disease. Chest X-Ray 03/21/19 03:50 IMPRESSION: Emphysematous lungs with bibasilar airspace opacities and bilateral pleural effusions. Persistent left apical mass. copyright 2010 [employer]- All Rights Reserved Fluoroscopy 03/24/19 00:00 IMPRESSION: Kyphoplasty. Refer to operative note for further information. Lumbar Spine X-Ray 03/24/19 00:00 IMPRESSION: Kyphoplasty. Refer to operative note for further information. Assessment and Plan - Diagnosis (1) Acute respiratory failure with hypoxia and hypercapnia Is this a current diagnosis for this admission?: Yes Plan: combination of her COPD and the pleural effusion as well as cor pulmonale. Continue oxygen supplementation. Patient appears to be stable. (2) Compression fracture of L2 Qualifiers: Encounter type: initial encounter Qualified Code(s): S32.020A - Wedge compression fracture of second lumbar vertebra, initial encounter for closed fracture Is this a current diagnosis for this admission?: Yes Plan: Status post kyphoplasty, will mobilize with PT. (3) Mass of left lung Is this a current diagnosis for this admission?: Yes Plan: Bronchoscopy is still pending, oncology is consulted. The bronchoscopy will probably be done after we get the colonoscopy. (4) Hematochezia Is this a current diagnosis for this admission?: Yes Plan: Surgical consult obtained, plan for EGD and colonoscopy on Wednesday - Plan Summary Summary: 03/17/2019-the patient has a 3 to 4 cm mass at the left hilum. I had a long discussion with the patient at the bedside. The day shift and shift supervisor rn nurses were present. The patient is upset but not surprised by the news. She is afraid of pain and is alone. She is somewhat despondent. She is not sure that she wants to go through with any aggressive therapy. She has had multiple relatives from cancer. She seldom suffering she is not sure if she wants this. I told her not to make premature decisions. We need to obtain a biopsy to make sure that it is cancer. Based on her overall clinical presentation it i s most likely a malignancy. I explained to her that there are many different types of lung cancer. Some are much more amenable to treatment than others. Some of the new chemotherapeutic regimens are not nearly as older regimens but this will be dependent on the tumor type. Dr. Escalante is following the patient. I explained to the patient that some of the work-up will be done as an outpatient. She will likely need to go home on oxygen. Pain is the rate limiting factor with therapy. I believe the sooner we can get the kyphoplasty performed the sooner we can mobilize the patient and then start planning discharge and work-up as an outpatient. - Time Time Spent with patient: 15-24 minutes
[2019-03-25] MEDS: FAMOTIDINE 20 MG TABLET PO SCH (21:53)
[2019-03-25] MEDS: ATORVASTATIN CALCIUM 20 MG TABLET PO SCH (21:53)
[2019-03-25] MEDS: LIDOCAINE 5% (700 MG) TRANSDERMAL ADH..PATCH TP SCH (21:54)
[2019-03-26] MEDS: MORPHINE SULFATE 10 MG/ML INJ IV PRN ×6 (02:42→23:53)
[2019-03-26] MEDS: IPRATROPIUM/ALBUTEROL 0.5-2.5 MG/3 ML AMPUL NEB SCH ×2 (08:17→20:11)
[2019-03-26] MEDS: BUPROPION HCL 75 MG TABLET PO SCH ×2 (09:22→21:12)
[2019-03-26] MEDS: CYANOCOBALAMIN (VITAMIN B-12) 1,000 MCG TABLET PO SCH (09:22)
[2019-03-26] MEDS: DOCUSATE SODIUM 100 MG CAPSULE PO SCH (09:22)
[2019-03-26] MEDS: THIAMINE HCL 100 MG, FOLIC ACID 1 MG in NORMAL SALINE 250 ML IV SCH (09:22)
--- NOTE | 2019-03-26 13:54 | PDOC PROGRESS REPORT ---
Subjective Progress Note for:: 03/26/19 Subjective:: No adverse events overnight. No new complaints. Pain is well controlled. She is apprehensive about the colonoscopy but is still willing to go through it. Reason For Visit: ACUTE ON CHRONIC COPD, ACUTE HEART FAILURE, Physical Exam Vital Signs: Temp Pulse Resp BP Pulse Ox 97.7 F 91 16 115/58 L 96 03/26/19 11:21 03/26/19 11:21 03/26/19 11:21 03/26/19 11:21 03/26/19 11:21 Intake & Output 03/25/19 03/26/19 03/27/19 06:59 06:59 06:59 Intake Total 1021.2 431.2 251.2 Output Total 600 425 Balance 421.2 6.2 251.2 Weight 45.5 kg 46.2 kg General appearance: PRESENT: no acute distress, cooperative, disheveled, thin Respiratory exam: PRESENT: decreased breath sounds, prolonged expiratory phas - Slightly, symmetrical, unlabored. ABSENT: accessory muscle use, chest wall tenderness, crackles, rhonchi, tachypnea, wheezes Cardiovascular exam: PRESENT: RRR, +S1, +S2 Pulses: PRESENT: normal carotid pulses Vascular exam: PRESENT: normal capillary refill GI/Abdominal exam: PRESENT: normal bowel sounds, soft. ABSENT: distended, guarding, rebound, tenderness Extremities exam: ABSENT: clubbing, pedal edema Musculoskeletal exam: PRESENT: normal inspection. ABSENT: deformity Neurological exam: PRESENT: alert, awake, oriented to person, oriented to place, oriented to situation Psychiatric exam: PRESENT: appropriate affect, normal mood Skin exam: PRESENT: dry, warm Results Laboratory Results: 03/25/19 09:53 03/24/19 09:35 03/13/19 03/13/19 03/13/19 18:30 18:30 18:30 Creatine Kinase 63 45 CK-MB (CK-2) 7.00 H Troponin I NT-Pro-B Natriuret Pep [id number] H 03/14/19 03/14/19 03/14/19 02:15 02:15 09:45 Creatine Kinase 39 CK-MB (CK-2) 4.67 H Troponin I 0.591 Cancelled NT-Pro-B Natriuret Pep 11/12/19 11/12/19 11/12/19 09:45 15:12 15:12 Creatine Kinase 32 CK-MB (CK-2) 4.28 3.04 Troponin I 0.472 0.476 NT-Pro-B Natriuret Pep 03/21/19 03/21/19 03/21/19 05:48 05:48 05:48 Creatine Kinase < 20 L CK-MB (CK-2) 0.84 Cancelled Troponin I 0.041 Cancelled NT-Pro-B Natriuret Pep 03/21/19 03/21/19 03/21/19 09:47 09:47 16:04 Creatine Kinase < 20 L < 20 L CK-MB (CK-2) 0.95 Troponin I 0.040 NT-Pro-B Natriuret Pep Impressions: Lung Scan-VQ NM 03/13/19 00:00 IMPRESSION: Low probability for PE copyright 2010 [employer]- All Rights Reserved Lumbar Spine CT 03/13/19 22:20 IMPRESSION: Acute fracture of the inferior aspect of L2 with mild loss of height. Bilateral pleural effusions and basilar atelectasis Fluid in the pelvis. Thoracentesis Ultrasound 03/16/19 00:00 IMPRESSION: SUCCESSFUL THORACENTESIS USING ULTRASOUND GUIDANCE. Chest CT 03/17/19 10:00 IMPRESSION: 33 x 38 mm suprahilar mass on the left. Extensive pulmonary emphysema. Bilateral pleural effusions. Body Scan Nuclear Medicine 03/20/19 08:00 IMPRESSION: There is uptake in the spine associated with compression fractures. There is uptake in the right acetabulum that could be degenerative. There is uptake in the superior pubic ramus that could be posttraumatic. Cannot entirely exclude metastatic disease. Chest X-Ray 03/21/19 03:50 IMPRESSION: Emphysematous lungs with bibasilar airspace opacities and bilateral pleural effusions. Persistent left apical mass. copyright 2010 [employer]- All Rights Reserved Fluoroscopy 03/24/19 00:00 IMPRESSION: Kyphoplasty. Refer to operative note for further information. Lumbar Spine X-Ray 03/24/19 00:00 IMPRESSION: Kyphoplasty. Refer to operative note for further information. Assessment and Plan - Diagnosis (1) Acute respiratory failure with hypoxia and hypercapnia Is this a current diagnosis for this admission?: Yes Plan: combination of her COPD and the pleural effusion as well as cor pulmonale. Continue oxygen supplementation. Patient appears to be stable. (2) Compression fracture of L2 Qualifiers: Encounter type: initial encounter Qualified Code(s): S32.020A - Wedge compression fracture of second lumbar vertebra, initial encounter for closed fracture Is this a current diagnosis for this admission?: Yes Plan: Status post kyphoplasty, will mobilize with PT. (3) Mass of left lung Is this a current diagnosis for this admission?: Yes Plan: Bronchoscopy is still pending, oncology is consulted. The bronchoscopy will probably be done after we get the colonoscopy. (4) Hematochezia Is this a current diagnosis for this admission?: Yes Plan: Surgical consult obtained, plan for EGD and colonoscopy on Wednesday - Plan Summary Summary: 03/17/2019-the patient has a 3 to 4 cm mass at the left hilum. I had a long discussion with the patient at the bedside. The day shift and corporate development associate nurses were present. The patient is upset but not surprised by the news. She is afraid of pain and is alone. She is somewhat despondent. She is not sure that she wants to go through with any aggressive therapy. She has had multiple relatives from cancer. She seldom suffering she is not sure if she wants this. I told her not to make premature decisions. We need to obtain a biopsy to make sure that it is cancer. Based on her overall clinical presentation it is most likely a malignancy. I explained to her that there are many different types of lung cancer. Some are much more amenable to treatment than others. Some of the new chemotherapeutic regimens are not nearly as older regimens but this will be dependent on the tumor type. Dr. Escalante is following the patient. I explained to the patient that some of the work-up will be done as an outpatient. She will likely need to go home on oxygen. Pain is the rate limiting factor with therapy. I believe the sooner we can get the kyphoplasty performed the sooner we can mobilize the patient and then start planning discharge and work-up as an outpatient. - Time Time Spent with patient: 15-24 minutes
[2019-03-26] MEDS ORDERED: PEG 3350/NA SULF,BICARB,CL/KCL 4000 ML PO ONE (15:00)
[2019-03-26] MEDS: LIDOCAINE 5% (700 MG) TRANSDERMAL ADH..PATCH TP SCH (21:07)
[2019-03-26] MEDS: ATORVASTATIN CALCIUM 20 MG TABLET PO SCH (21:12)
[2019-03-26] MEDS: FAMOTIDINE 20 MG TABLET PO SCH (21:12)
[2019-03-27] MEDS: MORPHINE SULFATE 10 MG/ML INJ IV PRN ×2 (06:31→09:59)
[2019-03-27] MEDS: IPRATROPIUM/ALBUTEROL 0.5-2.5 MG/3 ML AMPUL NEB SCH ×2 (08:30→20:24)
[2019-03-27] MEDS: DOCUSATE SODIUM 100 MG CAPSULE PO SCH (09:57)
[2019-03-27] MEDS: CYANOCOBALAMIN (VITAMIN B-12) 1,000 MCG TABLET PO SCH (09:59)
[2019-03-27] MEDS: THIAMINE HCL 100 MG, FOLIC ACID 1 MG in NORMAL SALINE 250 ML IV SCH (09:59)
[2019-03-27] MEDS: BUPROPION HCL 75 MG TABLET PO SCH ×2 (09:59→21:30)
--- NOTE | 2019-03-27 10:06 | PDOC PROGRESS REPORT ---
Subjective Progress Note for:: 03/27/19 Subjective:: Patient in chronic respiratory distress. She is complaining of back pain. She has taken a portion of her bowel prep. She states her stools are loose brown. Reason For Visit: ACUTE ON CHRONIC COPD, ACUTE HEART FAILURE, Physical Exam Vital Signs: Temp Pulse Resp BP Pulse Ox 97.7 F 98 20 107/52 L 99 03/27/19 07:44 03/27/19 08:30 03/27/19 08:30 03/27/19 07:44 03/27/19 08:30 Intake & Output 03/26/19 03/27/19 03/28/19 06:59 06:59 06:59 Intake Total 431.2 251.2 Output Total 425 775 Balance 6.2 -523.8 Weight 46.2 kg 47 kg General appearance: PRESENT: other - Thin cachectic white female appears much o lder than stated age. Obvious respiratory difficulty sitting upright in bed Respiratory exam: PRESENT: other - Respiratory distress, pursed lip breathing, breath sounds diminished bilaterally GI/Abdominal exam: PRESENT: other - Abdomen is soft, no tenderness no distention. Midline infraumbilical scar consistent with previous surgery. Results Laboratory Results: 03/25/19 09:53 03/24/19 09:35 03/13/19 03/13/19 03/13/19 18:30 18:30 18:30 Creatine Kinase 63 45 CK-MB (CK-2) 7.00 H Troponin I NT-Pro-B Natriuret Pep 15478 H 03/14/19 03/14/19 03/14/19 02:15 02:15 09:45 Creatine Kinase 39 CK-MB (CK-2) 4.67 H Troponin I 0.591 Cancelled NT-Pro-B Natriuret Pep 03/14/19 03/14/19 03/14/19 09:45 15:12 15:12 Creatine Kinase 32 CK-MB (CK-2) 4.28 3.04 Troponin I 0.472 0.476 NT-Pro-B Natriuret Pep 03/21/19 03/21/19 03/21/19 05:48 05:48 05:48 Creatine Kinase < 20 L CK-MB (CK-2) 0.84 Cancelled Troponin I 0.041 Cancelled NT-Pro-B Natriuret Pep 03/21/19 03/21/19 03/21/19 09:47 09:47 16:04 Creatine Kinase < 20 L < 20 L CK-MB (CK-2) 0.95 Troponin I 0.040 NT-Pro-B Natriuret Pep Impressions: Lung Scan-VQ NM 03/13/19 00:00 IMPRESSION: Low probability for PE copyright 2010 [employer]- All Rights Reserved Lumbar Spine CT 03/13/19 22:20 IMPRESSION: Acute fracture of the inferior aspect of L2 with mild loss of height. Bilateral pleural effusions and basilar atelectasis Fluid in the pelvis. Thoracentesis Ultrasound 03/16/19 00:00 IMPRESSION: SUCCESSFUL THORACENTESIS USING ULTRASOUND GUIDANCE. Chest CT 03/17/19 10:00 IMPRESSION: 33 x 38 mm suprahilar mass on the left. Extensive pulmonary emphysema. Bilateral pleural effusions. Body Scan Nuclear Medicine 03/20/19 08:00 IMPRESSION: There is uptake in the spine associated with compression fractures. There is uptake in the right acetabulum that could be degenerative. There is uptake in the superior pubic ramus that could be posttraumatic. Cannot entirely exclude metastatic disease. Chest X-Ray 03/21/19 03:50 IMPRESSION: Emphysematous lungs with bibasilar airspace opacities and bilateral pleural effusions. Persistent left apical mass. copyright 2010 [employer]- All Rights Reserved Fluoroscopy 03/24/19 00:00 IMPRESSION: Kyphoplasty. Refer to operative note for further information. Lumbar Spine X-Ray 03/24/19 00:00 IMPRESSION: Kyphoplasty. Refer to operative note for further information. Assessment & Plan - Diagnosis (1) Lower GI bleed Is this a current diagnosis for this admission?: Yes Plan: Impression: Gastrointestinal bleed, subacute, with associated drop in hemoglobin; no previous history of GI bleed; no previous history of upper lower endoscopy. Recommendations: 1. We will attempt upper and lower endoscopy today in the main operating room. Patient is high risk for pulmonary deterioration given her fragile status, cachectic state, chronic COPD. This was discussed with the anesthesia team. 2. We understand given the patient's partial compliance with the bowel regimen that the prep may not be optimal. (2) Acute respiratory failure with hypoxia and hypercapnia Is this a current diagnosis for this admission?: Yes (3) Compression fracture of L2 Qualifiers: Encounter type: initial encounter Qualified Code(s): S32.020A - Wedge compression fracture of second lumbar vertebra, initial encounter for closed fracture Is this a current diagnosis for this admission?: Yes - Time Time Spent with patient: 15-24 minutes
[2019-03-27] MEDS ORDERED: FENTANYL CITRATE INJ/PF 100 MCG/2 ML AMPUL ONE ×2 (14:30→16:03)
[2019-03-27] MEDS ORDERED: MIDAZOLAM 2 MG/2 ML INJ ONE ×3 (14:30→15:53)
[2019-03-27 15:05] LABS: HEMATOCRIT 29.4 % (36.0-47.0); HEMOGLOBIN 9.9 g/dL (12.0-15.5); MEAN CORPUSCULAR HEMOGLOBIN 34.3 pg (27.0-33.4); MEAN CORPUSCULAR HGB CONC 33.7 g/dL (32.0-36.0); MEAN CORPUSCULAR VOLUME 102 fl (80-97); PLATELET COUNT 300 10^3/uL (150-450); RED BLOOD COUNT 2.89 10^6/uL (3.72-5.28); WHITE BLOOD COUNT 7.2 10^3/uL (4.0-10.5)
--- NOTE | 2019-03-27 16:20 | PDOC PROGRESS REPORT ---
Subjective Progress Note for:: 03/27/19 Subjective:: No adverse events overnight. She is n.p.o. awaiting EGD and colonoscopy today. Back pain is minimal. Reason For Visit: ACUTE ON CHRONIC COPD, ACUTE HEART FAILURE, Physical Exam Vital Signs: Temp Pulse Resp BP Pulse Ox 98.4 F 98 17 102/64 97 03/27/19 11:12 03/27/19 11:12 03/27/19 11:12 03/27/19 11:12 03/27/19 11:12 Intake & Output 03/26/19 03/27/19 03/28/19 06:59 06:59 06:59 Intake Total 431.2 251.2 251.2 Output Total 425 775 Balance 6.2 -523.8 251.2 Weight 46.2 kg 47 kg 47 kg General appearance: PRESENT: no acute distress, cooperative, disheveled, thin Respiratory exam: PRESENT: decreased breath sounds, prolonged expiratory phas - Slightly, symmetrical, unlabored. ABSENT: accessory muscle use, chest wall tenderness, crackles, rhonchi, tachypnea, wheezes Cardiovascular exam: PRESENT: RRR, +S1, +S2 Pulses: PRESENT: normal carotid pulses Vascular exam: PRESENT: normal capillary refill GI/Abdominal exam: PRESENT: normal bowel sounds, soft. ABSENT: distended, guarding, rebound, tenderness Extremities exam: ABSENT: clubbing, pedal edema Musculoskeletal exam: PRESENT: normal inspection. ABSENT: deformity Neurological exam: PRESENT: alert, awake, oriented to person, oriented to place, oriented to situation Psychiatric exam: PRESENT: appropriate affect, normal mood Skin exam: PRESENT: dry, warm Results Laboratory Results: 03/27/19 14:54 03/24/19 09:35 03/27/19 14:54 WBC 7.2 RBC 2.89 L Hgb 9.9 L Hct 29.4 L MCV 102 H MCH 34.3 H MCHC 33.7 RDW 14.0 Plt Count 300 03/13/19 03/13/19 03/13/19 18:30 18:30 18:30 Creatine Kinase 63 45 CK-MB (CK-2) 7.00 H Troponin I NT-Pro-B Natriuret Pep 13743 H 03/14/19 03/14/19 03/14/19 02:15 02:15 09:45 Creatine Kinase 39 CK-MB (CK-2) 4.67 H Troponin I 0.591 Cancelled NT-Pro-B Natriuret Pep 03/14/19 03/14/19 03/14/19 09:45 15:12 15:12 Creatine Kinase 32 CK-MB (CK-2) 4.28 3.04 Troponin I 0.472 0.476 NT-Pro-B Natriuret Pep 03/21/19 03/21/19 03/21/19 05:48 05:48 05:48 Creatine Kinase < 20 L CK-MB (CK-2) 0.84 Cancelled Troponin I 0.041 Cancelled NT-Pro-B Natriuret Pep 03/21/19 03/21/19 03/21/19 09:47 09:47 16:04 Creatine Kinase < 20 L < 20 L CK-MB (CK-2) 0.95 Troponin I 0.040 NT-Pro-B Natriuret Pep Impressions: Lung Scan-VQ NM 03/13/19 00:00 IMPRESSION: Low probability for PE copyright 2010 [employer]- All Rights Reserved Lumbar Spine CT 03/13/19 22:20 IMPRESSION: Acute fracture of the inferior aspect of L2 with mild loss of height. Bilateral pleural effusions and basilar atelectasis Fluid in the pelvis. Thoracentesis Ultrasound 03/16/19 00:00 IMPRESSION: SUCCESSFUL THORACENTESIS USING ULTRASOUND GUIDANCE. Chest CT 03/17/19 10:00 IMPRESSION: 33 x 38 mm suprahilar mass on the left. Extensive pulmonary emphysema. Bilateral pleural effusions. Body Scan Nuclear Medicine 03/20/19 08:00 IMPRESSION: There is uptake in the spine associated with compression fractures. There is uptake in the right acetabulum that could be degenerative. There is uptake in the superior pubic ramus that could be posttraumatic. Cannot entirely exclude metastatic disease. Chest X-Ray 03/21/19 03:50 IMPRESSION: Emphysematous lungs with bibasilar airspace opacities and bilateral pleural effusions. Persistent left apical mass. copyright 2011 [employer]- All Rights Reserved Fluoroscopy 03/24/19 00:00 IMPRESSION: Kyphoplasty. Refer to operative note for further information. Lumbar Spine X-Ray 03/24/19 00:00 IMPRESSION: Kyphoplasty. Refer to operative note for further information. Assessment and Plan - Diagnosis (1) Acute respiratory failure with hypoxia and hypercapnia Is this a current diagnosis for this admission?: Yes Plan: combination of her COPD and the pleural effusion as well as cor pulmonale. Continue oxygen supplementation. Patient appears to be stable. (2) Compression fracture of L2 Qualifiers: Encounter type: initial encounter Qualified Code(s): S32.020A - Wedge compression fracture of second lumbar vertebra, initial encounter for closed fracture Is this a current diagnosis for this admission?: Yes Plan: Status post kyphoplasty, will mobilize with PT. (3) Mass of left lung Is this a current diagnosis for this admission?: Yes Plan: Bronchoscopy is still pending, oncology is consulted. The bronchoscopy will probably be done after we get the colonoscopy. (4) Hematochezia Is this a current diagnosis for this admission?: Yes Plan: Plan for EGD and colonoscopy today. She been on a proton pump inhibitor twice a day. If there is not any substantial source of bleeding, will contact Dr. Calvillo about bronchoscopy for biopsy of lung mass. Hemoglobin has stabilized. - Plan Summary Summary: 03/17/2019-the patient has a 3 to 4 cm mass at the left hilum. I had a long discussion with the patient at the bedside. The day shift and shift coordinator nurses were present. The patient is upset but not surprised by the news. She is afraid of pain and is alone. She is somewhat despondent. She is not sure that she wants to go through with any aggressive therapy. She has had multiple relatives from cancer. She seldom suffering she is not sure if she wants this. I told her not to make premature decisions. We need to obtain a biopsy to make sure that it is cancer. Based on her overall clinical presentation it is most likely a malignancy. I explained to her that there are many different types of lung cancer. Some are much more amenable to treatment than others. Some of the new chemotherapeutic regimens are not nearly as older regimens but this will be dependent on the tumor type. Dr. Escalante is following the patient. I explained to the patient that some of the work-up will be done as an outpatient. She will likely need to go home on oxygen. Pain is the rate limiting factor with therapy. I believe the sooner we can get the kyphoplasty performed the sooner we can mobilize the patient and then start planning discharge and work-up as an outpatient. - Time Time Spent with patient: 15-24 minutes
--- NOTE | 2019-03-27 16:28 | Operative Report ---
Nonrecallable Operative Report DATE OF SURGERY: 03/27/19 PREOPERATIVE DIAGNOSIS: 1. Blood loss anemia, chronic. 2. Screened for colorectal carcinoma POSTOPERATIVE DIAGNOSIS: 1. Diffuse moderate gastritis. 2. Moderate duodenitis. 3. Extensive sigmoid diverticulosis. 4. incomplete bowel prep. 5. no evidence of acute GI bleeding OPERATION: 1. Esophagogastroduodenoscopy with cold forceps to biopsy the gastric antrum, and duodenum first portion. 2. Total colonoscopy to cecum with photodocumentation SURGEON: ROBERT GARCIA ANESTHESIA: LMAC TISSUE REMOVED OR ALTERED: Biopsies of the mucosa COMPLICATIONS: None ESTIMATED BLOOD LOSS: Scant INTRAOPERATIVE FINDINGS: See below PROCEDURE: Patient was taken from the preop holding area to the main operating room where appropriate level of LMAC anesthesia was induced with the patient in the left semirecumbent position. Surgical plan and surgical timeout were conducted. Oral mouthpiece inserted, the flexible adult upper endoscope was advanced to the oral pharynx, down the esophagus through the stomach into the first and second portions of the duodenum. The patient tolerated this operation well. The duodenum was significant for moderate duodenitis and a cold mucosal biopsy was taken sent to pathology. The pylorus was without narrowing. There was no mike ulcer. However there was diffuse gastritis throughout the body and antrum. A random antral biopsy was taken. There was no evidence of clot or active bleeding. No ulcer tumor or polyp. There was no significant hiatal hernia. The scope was brought back through the GE junction which was at 37 cm from the incisor. The esophagus was unremarkable. There is no evidence of tumor stricture bleeding polyp or varices. The scope was withdrawn of the patient's oropharynx. She tolerated procedure well. The patient was then placed in a more extreme left lateral decubitus position. A rectal exam was performed. There was no visible or palpable anorectal pathology. The flexible pediatric colonoscope was advanced to the anal rectal canal all the way to the cecum. This was a unprepped bowel, essentially. Significant amount of liquid and solid as well as semisolid stool. Fortunately however we were able to advance the scope her all the way through to the cecum. The ileocecal valve was visualized and photographed. The scope was withdrawn for length of the colon. Because of the poor bowel flap, there was the possibility of missing a small to moderate-sized pathology. However, there appeared to be no obvious tumor, bleeding or clot. In the rectosigmoid colon extensive diverticulosis ease were identified. Photos were taken. The anal rectal canal was unremarkable. The scope was withdrawn with the patient's anus. She tolerated the procedure well, without undue respiratory difficulty. She was taken to the recovery room in stable condition.
[2019-03-27] MEDS: FAMOTIDINE 20 MG TABLET PO SCH (21:30)
[2019-03-27] MEDS: ATORVASTATIN CALCIUM 20 MG TABLET PO SCH (21:30)
[2019-03-27] MEDS: LIDOCAINE 5% (700 MG) TRANSDERMAL ADH..PATCH TP SCH (21:32)
[2019-03-28] MEDS: MORPHINE SULFATE 10 MG/ML INJ IV PRN (07:44)
[2019-03-28] MEDS: IPRATROPIUM/ALBUTEROL 0.5-2.5 MG/3 ML AMPUL NEB SCH ×2 (08:38→20:40)
--- NOTE | 2019-03-28 09:04 | PDOC PROGRESS REPORT ---
Subjective Progress Note for:: 03/28/19 Subjective:: Patient states that she is still quite dyspnic. She is hungry, but it's hard to eat because of her breathing. Yesterday, her breathing was even worse due to the up and down on bedpan due to GI prep for colonoscopy. She is hoping to rest some today. She cannot tell much difference in her back pain after kyphoplasty. She is still awaiting bronchoscopy. Reason For Visit: ACUTE ON CHRONIC COPD, ACUTE HEART FAILURE, Physical Exam Vital Signs: Temp Pulse Resp BP Pulse Ox 98.0 F 104 H 18 113/58 L 92 03/28/19 08:16 03/28/19 08:16 03/28/19 08:16 03/28/19 08:16 03/28/19 08:16 Intake & Output 03/27/19 03/28/19 03/29/19 06:59 06:59 06:59 Intake Total 251.2 1901.2 Output Total 775 105 Balance -523.8 1796.2 Weight 47 kg 47.6 kg General appearance: PRESENT: mild distress, thin Head exam: PRESENT: normocephalic Respiratory exam: PRESENT: decreased breath sounds Cardiovascular exam: PRESENT: RRR GI/Abdominal exam: PRESENT: soft Neurological exam: PRESENT: alert, awake Psychiatric exam: PRESENT: appropriate affect Skin exam: PRESENT: normal color Results Laboratory Results: 03/27/19 14:54 03/24/19 09:35 03/27/19 14:54 WBC 7.2 RBC 2.89 L Hgb 9.9 L Hct 29.4 L MCV 102 H MCH 34.3 H MCHC 33.7 RDW 14.0 Plt Count 300 03/13/19 03/13/19 03/13/19 18:30 18:30 18:30 Creatine Kinase 63 45 CK-MB (CK-2) 7.00 H Troponin I NT-Pro-B Natriuret Pep 96624 H 03/14/19 03/14/19 03/14/19 02:15 02:15 09:45 Creatine Kinase 39 CK-MB (CK-2) 4.67 H Troponin I 0.591 Cancelled NT-Pro-B Natriuret Pep 03/14/19 03/14/19 03/14/19 09:45 15:12 15:12 Creatine Kinase 32 CK-MB (CK-2) 4.28 3.04 Troponin I 0.472 0.476 NT-Pro-B Natriuret Pep 03/21/19 03/21/19 03/21/19 05:48 05:48 05:48 Creatine Kinase < 20 L CK-MB (CK-2) 0.84 Cancelled Troponin I 0.041 Cancelled NT-Pro-B Natriuret Pep 03/21/19 03/21/19 03/21/19 09:47 09:47 16:04 Creatine Kinase < 20 L < 20 L CK-MB (CK-2) 0.95 Troponin I 0.040 NT-Pro-B Natriuret Pep Impressions: Lung Scan-VQ NM 03/13/19 00:00 IMPRESSION: Low probability for PE copyright 2010 [employer]- All Rights Reserved Lumbar Spine CT 03/13/19 22:20 IMPRESSION: Acute fracture of the inferior aspect of L2 with mild loss of height. Bilateral pleural effusions and basilar atelectasis Fluid in the pelvis. Thoracentesis Ultrasound 03/16/19 00:00 IMPRESSION: SUCCESSFUL THORACENTESIS USING ULTRASOUND GUIDANCE. Chest CT 03/17/19 10:00 IMPRESSION: 33 x 38 mm suprahilar mass on the left. Extensive pulmonary emphysema. Bilateral pleural effusions. Body Scan Nuclear Medicine 03/20/19 08:00 IMPRESSION: There is uptake in the spine associated with compression fractures. There is uptake in the right acetabulum that could be degenerative. There is uptake in the superior pubic ramus that could be posttraumatic. Cannot entirely exclude metastatic disease. Chest X-Ray 03/21/19 03:50 IMPRESSION: Emphysematous lungs with bibasilar airspace opacities and bilateral pleural effusions. Persistent left apical mass. copyright 2010 [employer]- All Rights Reserved Fluoroscopy 03/24/19 00:00 IMPRESSION: Kyphoplasty. Refer to operative note for further information. Lumbar Spine X-Ray 03/24/19 00:00 IMPRESSION: Kyphoplasty. Refer to operative note for further information. Assessment & Plan - Diagnosis (1) Compression fracture of L2 Qualifiers: Encounter type: initial encounter Qualified Code(s): S32.020A - Wedge compression fracture of second lumbar vertebra, initial encounter for closed fracture Is this a current diagnosis for this admission?: Yes Plan: s/p kyphoplasty. Continue pain meds. Patient will need to ambulate soon. (2) Polycythemia Is this a current diagnosis for this admission?: Yes Plan: Resolved. Now anemic. Unclear reason other than prolonged hospitalization and chronic disease. No current evidence of bleeding. s/p EGD and colonoscopy. Await biopsies. (3) Lung mass Is this a current diagnosis for this admission?: Yes Plan: Still will need bronchoscopy and possible EBUS. Unsure if this can be done here or if patient will need to transfer to [facility] for this procedure. Concern is for lung cancer, but without diagnosis, no treatment can be started. - Time Time Spent with patient: 15-24 minutes - Plan Summary Plan Summary: Please call if needed, otherwise, will see her again after path is received from lung.
[2019-03-28] MEDS: DOCUSATE SODIUM 100 MG CAPSULE PO SCH (09:32)
[2019-03-28] MEDS: THIAMINE HCL 100 MG, FOLIC ACID 1 MG in NORMAL SALINE 250 ML IV SCH (09:32)
[2019-03-28] MEDS: BUPROPION HCL 75 MG TABLET PO SCH ×2 (09:32→21:20)
[2019-03-28] MEDS: CYANOCOBALAMIN (VITAMIN B-12) 1,000 MCG TABLET PO SCH (09:32)
--- NOTE | 2019-03-28 16:19 | PDOC PROGRESS REPORT ---
Subjective Progress Note for:: 03/28/19 Reason For Visit: ACUTE ON CHRONIC COPD, ACUTE HEART FAILURE, 03/28/2019 Patient's main complaint compression fracture of L2 which is been remedied by kyphoplasty And also has a lung mass may be old or new. She tends to think she has had this in the past by conversation she said with other providers Physical Exam Vital Signs: Temp Pulse Resp BP Pulse Ox 97.7 F 79 16 109/58 L 93 03/28/19 13:04 03/28/19 14:00 03/28/19 13:04 03/28/19 13:04 03/28/19 13:04 Intake & Output 03/27/19 03/28/19 03/29/19 06:59 06:59 06:59 Intake Total 251.2 1901.2 251.2 Output Total 775 105 Balance -523.8 1796.2 251.2 Weight 47 kg 47.6 kg General appearance: PRESENT: no acute distress, other - Speaking in full sentences no distress Respiratory exam: PRESENT: clear to auscultation christopher. ABSENT: rales, rhonchi, wheezes Cardiovascular exam: PRESENT: RRR. ABSENT: diastolic murmur, rubs, systolic murmur Neurological exam: PRESENT: alert, awake, oriented to person, oriented to place, oriented to time, oriented to situation, CN II-XII grossly intact. ABSENT: motor sensory deficit Psychiatric exam: PRESENT: appropriate affect, normal mood. ABSENT: homicidal i deation, suicidal ideation Results Laboratory Results: 03/27/19 14:54 03/24/19 09:35 03/13/19 03/13/19 03/13/19 18:30 18:30 18:30 Creatine Kinase 63 45 CK-MB (CK-2) 7.00 H Troponin I NT-Pro-B Natriuret Pep 75444 H 03/14/19 03/14/19 03/14/19 02:15 02:15 09:45 Creatine Kinase 39 CK-MB (CK-2) 4.67 H Troponin I 0.591 Cancelled NT-Pro-B Natriuret Pep 03/14/19 03/14/19 03/14/19 09:45 15:12 15:12 Creatine Kinase 32 CK-MB (CK-2) 4.28 3.04 Troponin I 0.472 0.476 NT-Pro-B Natriuret Pep 03/21/19 03/21/19 03/21/19 05:48 05:48 05:48 Creatine Kinase < 20 L CK-MB (CK-2) 0.84 Cancelled Troponin I 0.041 Cancelled NT-Pro-B Natriuret Pep 03/21/19 03/21/19 03/21/19 09:47 09:47 16:04 Creatine Kinase < 20 L < 20 L CK-MB (CK-2) 0.95 Troponin I 0.040 NT-Pro-B Natriuret Pep Impressions: Lung Scan-VQ NM 03/13/19 00:00 IMPRESSION: Low probability for PE copyright 2010 [employer]- All Rights Reserved Lumbar Spine CT 03/13/19 22:20 IMPRESSION: Acute fracture of the inferior aspect of L2 with mild loss of height. Bilateral pleural effusions and basilar atelectasis Fluid in the pelvis. Thoracentesis Ultrasound 03/16/19 00:00 IMPRESSION: SUCCESSFUL THORACENTESIS USING ULTRASOUND GUIDANCE. Chest CT 03/17/19 10:00 IMPRESSION: 33 x 38 mm suprahilar mass on the left. Extensive pulmonary emphysema. Bilateral pleural effusions. Body Scan Nuclear Medicine 03/20/19 08:00 IMPRESSION: There is uptake in the spine associated with compression fractures. There is uptake in the right acetabulum that could be degenerative. There is uptake in the superior pubic ramus that could be posttraumatic. Cannot entirely exclude metastatic disease. Chest X-Ray 03/21/19 03:50 IMPRESSION: Emphysematous lungs with bibasilar airspace opacities and bilateral pleural effusions. Persistent left apical mass. copyright 2010 [employer]- All Rights Reserved Fluoroscopy 03/24/19 00:00 IMPRESSION: Kyphoplasty. Refer to operative note for further information. Lumbar Spine X-Ray 03/24/19 00:00 IMPRESSION: Kyphoplasty. Refer to operative note for further information. Assessment and Plan - Diagnosis (1) Acute respiratory failure with hypoxia and hypercapnia Is this a current diagnosis for this admission?: Yes (2) Compression fracture of L2 Qualifiers: Encounter type: initial encounter Qualified Code(s): S32.020A - Wedge compression fracture of second lumbar vertebra, initial encounter for closed fracture Is this a current diagnosis for this admission?: Yes (3) Hematochezia Is this a current diagnosis for this admission?: Yes (4) Lower GI bleed Is this a current diagnosis for this admission?: Yes (5) Lung mass Is this a current diagnosis for this admission?: Yes (6) Polycythemia Is this a current diagnosis for this admission?: Yes - Plan Summary Summary: 03/17/2019-the patient has a 3 to 4 cm mass at the left hilum. I had a long discussion with the patient at the bedside. The day shift and integration project manager nurses were present. The patient is upset but not surprised by the news. She is afraid of pain and is alone. She is somewhat despondent. She is not sure that she wants to go through with any aggressive therapy. She has had multiple relatives from cancer. She seldom suffering she is not sure if she wants this. I told her not to make premature decisions. We need to obtain a biopsy to make sure that it is cancer. Based on her overall clinical presentation it is most likely a malignancy. I explained to her that there are many different types of lung cancer. Some are much more amenable to treatment than others. Some of the new chemotherapeutic regimens are not nearly as older regimens but this will be dependent on the tumor type. Dr. Escalante is following the patient. I explained to the patient that some of the work-up will be done as an outpatient. She will likely need to go home on oxygen. Pain is the rate limiting factor with therapy. I believe the sooner we can get the kyphoplasty performed the sooner we can mobilize the patient and then start planning discharge and work-up as an outpatient. 03/28/2019 Patient and I have had a long discussion today about her lung mass. Patient's is nurse was in the room as well. Patient does not want to have the bronchoscopy and has had several valid arguments for not having it done. She realizes that this may be a cancer and that without treatment may end her life. She also realizes that without bronchoscopy it will be impossible to diagnose. She does not even want any thought of going through radiation or chemotherapy. I think the best thing to do is to stabilize the patient and get her back to where she is able to be discharged. He can think about this as an outpatient she changes her mind we can always proceed with a bronchoscopy.. She does not want to aggressively go after diagnosis or treatment. CBC is stable, renal functions are stable. EGD with colonoscopy showed a stridorous, duodenitis, diverticulosis, however no sign of active GI bleeding She does have a bed at [facility] and it may be that she will be discharged tomorrow - Time Time Spent with patient: 35 or more minutes
[2019-03-28] MEDS: OXYCODONE-ACETAMINOPHEN 5-325 MG TABLET PO PRN (16:47)
[2019-03-28] MEDS: ATORVASTATIN CALCIUM 20 MG TABLET PO SCH (21:20)
[2019-03-28] MEDS: LIDOCAINE 5% (700 MG) TRANSDERMAL ADH..PATCH TP SCH (21:20)
[2019-03-28] MEDS: FAMOTIDINE 20 MG TABLET PO SCH (21:20)
[2019-03-29] MEDS: OXYCODONE-ACETAMINOPHEN 5-325 MG TABLET PO PRN ×2 (05:48→11:34)
[2019-03-29] MEDS: MAG HYDROX/AL HYDROX/SIMETH SUSP 30 ML UDCUP PO PRN (05:56)
[2019-03-29] MEDS: IPRATROPIUM/ALBUTEROL 0.5-2.5 MG/3 ML AMPUL NEB SCH (08:39)
[2019-03-29] MEDS: DOCUSATE SODIUM 100 MG CAPSULE PO SCH (09:23)
[2019-03-29] MEDS: CYANOCOBALAMIN (VITAMIN B-12) 1,000 MCG TABLET PO SCH (09:23)
[2019-03-29] MEDS: BUPROPION HCL 75 MG TABLET PO SCH (09:23)
[2019-03-29] MEDS: THIAMINE HCL 100 MG, FOLIC ACID 1 MG in NORMAL SALINE 250 ML IV SCH (09:23)
[2019-03-29] MEDS ORDERED: LORAZEPAM 0.5 MG TABLET PO SCH (11:00)
[2019-03-29 11:39] VITALS: BP 110/56
--- NOTE | 2019-03-29 12:05 | PDOC PROGRESS REPORT ---
Subjective Progress Note for:: 03/29/19 Reason For Visit: ACUTE ON CHRONIC COPD, ACUTE HEART FAILURE, 03/29/2019 Patient still short of breath. States she is been like this now for at least 6 months. Physical Exam Vital Signs: Temp Pulse Resp BP Pulse Ox 98.1 F 87 20 119/64 92 03/29/19 07:47 03/29/19 08:39 03/29/19 08:39 03/29/19 07:47 03/29/19 08:39 Intake & Output 03/28/19 03/29/19 03/30/19 06:59 06:59 06:59 Intake Total 1901.2 891.2 251.2 Output Total 105 650 Balance 1796.2 241.2 251.2 Weight 47.6 kg 47.9 kg General appearance: PRESENT: mild distress, other - This of breath Respiratory exam: PRESENT: decreased breath sounds, wheezes Cardiovascular exam: PRESENT: RRR. ABSENT: diastolic murmur, rubs, systolic murmur Results Laboratory Results: 03/27/19 14:54 03/24/19 09:35 03/13/19 03/13/19 03/13/19 18:30 18:30 18:30 Creatine Kinase 63 45 CK-MB (CK-2) 7.00 H Troponin I NT-Pro-B Natriuret Pep 77572 H 03/14/19 03/14/19 03/14/19 02:15 02:15 09:45 Creatine Kinase 39 CK-MB (CK-2) 4.67 H Troponin I 0.591 Cancelled NT-Pro-B Natriuret Pep 03/14/19 03/14/19 03/14/19 09:45 15:12 15:12 Creatine Kinase 32 CK-MB (CK-2) 4.28 3.04 Troponin I 0.472 0.476 NT-Pro-B Natriuret Pep 03/21/19 03/21/19 03/21/19 05:48 05:48 05:48 Creatine Kinase < 20 L CK-MB (CK-2) 0.84 Cancelled Troponin I 0.041 Cancelled NT-Pro-B Natriuret Pep 03/21/19 03/21/19 03/21/19 09:47 09:47 16:04 Creatine Kinase < 20 L < 20 L CK-MB (CK-2) 0.95 Troponin I 0.040 NT-Pro-B Natriuret Pep Impressions: Lung Scan-VQ NM 03/13/19 00:00 IMPRESSION: Low probability for PE copyright 2010 [employer]- All Rights Reserved Lumbar Spine CT 03/13/19 22:20 IMPRESSION: Acute fracture of the inferior aspect of L2 with mild loss of height. Bilateral pleural effusions and basilar atelectasis Fluid in the pelvis. Thoracentesis Ultrasound 03/16/19 00:00 IMPRESSION: SUCCESSFUL THORACENTESIS USING ULTRASOUND GUIDANCE. Chest CT 03/17/19 10:00 IMPRESSION: 33 x 38 mm suprahilar mass on the left. Extensive pulmonary emphysema. Bilateral pleural effusions. Body Scan Nuclear Medicine 03/20/19 08:00 IMPRESSION: There is uptake in the spine associated with compression fractures. There is uptake in the right acetabulum that could be degenerative. There is uptake in the superior pubic ramus that could be posttraumatic. Cannot entirely exclude metastatic disease. Chest X-Ray 03/21/19 03:50 IMPRESSION: Emphysematous lungs with bibasilar airspace opacities and bilateral pleural effusions. Persistent left apical mass. copyright 2010 [employer]- All Rights Reserved Fluoroscopy 03/24/19 00:00 IMPRESSION: Kyphoplasty. Refer to operative note for further information. Lumbar Spine X-Ray 03/24/19 00:00 IMPRESSION: Kyphoplasty. Refer to operative note for further information. Assessment and Plan - Diagnosis (1) Acute respiratory failure with hypoxia and hypercapnia Is this a current diagnosis for this admission?: Yes (2) Compression fracture of L2 Qualifiers: Encounter type: initial encounter Qualified Code(s): S32.020A - Wedge compression fracture of second lumbar vertebra, initial encounter for closed fracture Is this a current diagnosis for this admission?: Yes (3) Hematochezia Is this a current diagnosis for this admission?: Yes (4) Lower GI bleed Is this a current diagnosis for this admission?: Yes (5) Lung mass Is this a current diagnosis for this admission?: Yes (6) Polycythemia Is this a current diagnosis for this admission?: Yes - Plan Summary Summary: 03/17/2019-the patient has a 3 to 4 cm mass at the left hilum. I had a long discussion with the patient at the bedside. The day shift and critical care specialist nurses were present. The patient is upset but not surprised by the news. She is afraid of pain and is alone. She is somewhat despondent. She is not sure that she wants to go through with any aggressive therapy. She has had multiple relatives from cancer. She seldom suffering she is not sure if she wants this. I told her not to make premature decisions. We need to obtain a biopsy to make sure that it is cancer. Based on her overall clinical presentation it is most likely a malignancy. I explained to her that there are many different types of lung cancer. Some are much more amenable to treatment than others. Some of the new chemotherapeutic regimens are not nearly as older regimens but this will be dependent on the tumor type. Dr. Escalante is following the patient. I explained to the patient that some of the work-up will be done as an outpatient. She will likely need to go home on oxygen. Pain is the rate limiting factor with therapy. I believe the sooner we can get the kyphoplasty performed the sooner we can mobilize the patient and then start planning discharge and work-up as an outpatient. 03/28/2019 Patient and I have had a long discussion today about her lung mass. Patient's is nurse was in the room as well. Patient does not want to have the bronchoscopy and has had several valid arguments for not having it done. She re alizes that this may be a cancer and that without treatment may end her life. She also realizes that without bronchoscopy it will be impossible to diagnose. She does not even want any thought of going through radiation or chemotherapy. I think the best thing to do is to stabilize the patient and get her back to where she is able to be discharged. He can think about this as an outpatient she changes her mind we can always proceed with a bronchoscopy.. She does not want to aggressively go after diagnosis or treatment. CBC is stable, renal functions are stable. EGD with colonoscopy showed a stridorous, duodenitis, diverticulosis, however no sign of active GI bleeding She does have a bed at [facility] and it may be that she will be discharged tomorrow 03/29/2019 Patient is medically stable for discharge. She has a bed at [facility]. Patient will be discharged today - Time Time Spent with patient: 25-34 minutes
--- NOTE | 2019-03-29 12:32 | PDOC TRANSFER SUMMARY ---
Impression - Admit/DC Date/PCP Admission Date/Primary Care Provider: 03/14/19 03:32 Discharge Date: 03/29/19 - Discharge Diagnosis (1) Acute respiratory failure with hypoxia and hypercapnia Is this a current diagnosis for this admission?: Yes (2) Compression fracture of L2 Is this a current diagnosis for this admission?: Yes (3) Hematochezia Is this a current diagnosis for this admission?: Yes (4) Lower GI bleed Is this a current diagnosis for this admission?: Yes (5) Lung mass Is this a current diagnosis for this admission?: Yes (6) Polycythemia Is this a current diagnosis for this admission?: Yes - Assessment Summary: 03/17/2019-the patient has a 3 to 4 cm mass at the left hilum. I had a long discussion with the patient at the bedside. The day shift and warehouse shift supervisor nurses were present. The patient is upset but not surprised by the news. She is afraid of pain and is alone. She is somewhat despondent. She is not sure that she wants to go through with any aggressive therapy. She has had multiple relatives from cancer. She seldom suffering she is not sure if she wants this. I told her not to make premature decisions. We need to obtain a biopsy to make sure that it is cancer. Based on her overall clinical presentation it is most likely a malignancy. I explained to her that there are many different types of lung cancer. Some are much more amenable to treatment than others. Some of the new chemotherapeutic regimens are not nearly as older regimens but this will be dependent on the tumor type. Dr. Escalante is following the patient. I explained to the patient that some of the work-up will be done as an outpatient. She will likely need to go home on oxygen. Pain is the rate limiting factor with therapy. I believe the sooner we can get the kyphoplasty performed the sooner we can mobilize the patient and then start planning discharge and work-up as an outpatient. 03/28/2019 Patient and I have had a long discussion today about her lung mass. Patient's is nurse was in the room as well. Patient does not want to have the bronchoscopy and has had several valid arguments for not having it done. She realizes that this may be a cancer and that without treatment may end her life. She also realizes that without bronchoscopy it will be impossible to diagnose. She does not even want any thought of going through radiation or chemotherapy. I think the best thing to do is to stabilize the patient and get her back to where she is able to be discharged. He can think about this as an outpatient she changes her mind we can always proceed with a bronchoscopy.. She does not want to aggressively go after diagnosis or treatment. CBC is stable, renal functions are stable. EGD with colonoscopy showed a stridorous, duodenitis, diverticulosis, however no sign of active GI bleeding She does have a bed at [facility] and it may be that she will be discharged tomorrow 03/29/2019 Patient is medically stable for discharge. She has a bed at [facility]. Patient will be discharged today Patient was originally admitted on 14 March with fatigue and shortness of breath. She came into the emergency room with erythroderma, anasarca, hypoxia, polycythemia, and an acute L2 fracture. Patient states that she has been without medical care for over 40 years And tells me today on the day of discharge that she is been extremely short of breath for at least 6 months now and had frequent falls Was seen in consultation by hematology. Patient had a VQ scan which showed low probability for PE Hematology felt that her anemia polycythemia was secondary to chronic hypoxia. So that she might have a B12 deficiency During her hospitalization it was also found the patient had a 3 to 4 cm mass at the left hilum She does not want any further diagnostic studies or treatment studies done for this mass. He was told that this may very well be malignant and that she could from this. 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 Also need 2 to 3 L of oxygen probably continuous. I also wrote for limited supply of Percocet. Will be transferred to long-term facility. - Additional Information Resuscitation Status: Do Not Resuscitate Discharge Diet: Regular Discharge Activity: Activity As Tolerated, Balance Activity w/Rest, Weigh Daily Referrals: OLMAN KRUSE MD [ACTIVE STAFF] - 04/12/19 3:15 pm (with Dr. Coyle ) VONDA CRABTREE MD [ACTIVE STAFF] - (Bring insurance cards and any medicines that you are taking in bottles. spoke with the office and ca appointment) Prescriptions: Lorazepam [Ativan 0.5 mg Tablet] 0.5 mg PO Q12 15 Days #30 tablet Atorvastatin Calcium [Lipitor 20 mg Tablet] 20 mg PO QHS 30 Days #30 tablet Famotidine [Pepcid 20 mg Tablet] 20 mg PO QHS 30 Days #30 tablet Oxycodone HCl/Acetaminophen [Percocet 5-325 mg Tablet] 1 tab PO Q6HP PRN 5 Days #20 tablet PRN Reason: Cyanocobalamin (Vitamin B-12) [Vitamin B-12 1000 mcg Tablet] 1,000 mcg PO DAILY 30 Days #30 tablet Bupropion HCl [Wellbutrin 75 mg Tablet] 75 mg PO Q12 30 Days #60 tablet Home Medications: Naproxen Sodium [Aleve] 220 mg PO QID 03/14/19 Atorvastatin Calcium [Lipitor 20 mg Tablet] 20 mg PO QHS 30 Days #30 tablet 03/29/19 Bupropion HCl [Wellbutrin 75 mg Tablet] 75 mg PO Q12 30 Days #60 tablet 03/29/19 Cyanocobalamin (Vitamin B-12) [Vitamin B-12 1000 mcg Tablet] 1,000 mcg PO DAILY 30 Days #30 tablet 03/29/19 Docusate Sodium [Colace 100 mg Capsule] 100 mg PO DAILY capsule 03/29/19 Famotidine [Pepcid 20 mg Tablet] 20 mg PO QHS 30 Days #30 tablet 03/29/19 Lorazepam [Ativan 0.5 mg Tablet] 0.5 mg PO Q12 15 Days #30 tablet 03/29/19 Mag Hydrox/Al Hydrox/Simeth [Maalox Plus Susp 30 Udcup] 30 ml PO Q4HP PRN udc 03/29/19 Magnesium Hydroxide [Milk of Magnesia 30 ml Udcup] 30 ml PO HSP PRN udc 03/29/19 Oxycodone HCl/Acetaminophen [Percocet 5-325 mg Tablet] 1 tab PO Q6HP PRN 5 Days #20 tablet 03/29/19 History of Present Illiness History of Present Illness: RENETTA GUTIERRES is a 69 year old female Physical Exam Vital Signs: Temp Pulse Resp BP Pulse Ox 97.8 F 87 16 110/56 L 100 03/29/19 11:34 03/29/19 11:34 03/29/19 11:34 03/29/19 11:34 03/29/19 11:34 Intake & Output 03/28/19 03/29/19 03/30/19 06:59 06:59 06:59 Intake Total 1901.2 891.2 251.2 Output Total 105 650 Balance 1796.2 241.2 251.2 Weight 47.6 kg 47.9 kg Results Laboratory Results: WBC 7.2 10^3/uL (4.0-10.5) 03/27/19 14:54 RBC 2.89 10^6/uL (3.72-5.28) L 03/27/19 14:54 Hgb 9.9 g/dL (12.0-15.5) L 03/27/19 14:54 Hct 29.4 % (36.0-47.0) L 03/27/19 14:54 MCV 102 fl (80-97) H 03/27/19 14:54 MCH 34.3 pg (27.0-33.4) H 03/27/19 14:54 MCHC 33.7 g/dL (32.0-36.0) 03/27/19 14:54 RDW 14.0 % (11.5-14.0) 03/27/19 14:54 Plt Count 300 10^3/uL (150-450) 03/27/19 14:54 Lymph % (Auto) 12.2 % (13-45) L 03/24/19 09:35 Banner % (Auto) 7.0 % (3-13) 03/24/19 09:35 Eos % (Auto) 1.6 % (0-6) 03/24/19 09:35 Baso % (Auto) 1.0 % (0-2) 03/24/19 09:35 Reticulocyte # 0.026 10^6/uL (0.028-0.122) L 03/13/19 20:00 Absolute Neuts (auto) 6.2 10^3/uL (1.7-8.2) 03/24/19 09:35 Absolute Lymphs (auto) 1.0 10^3/uL (0.5-4.7) 03/24/19 09:35 Absolute Monos (auto) 0.6 10^3/uL (0.1-1.4) 03/24/19 09:35 Absolute Eos (auto) 0.1 10^3/uL (0.0-0.6) 03/24/19 09:35 Absolute Basos (auto) 0.1 10^3/uL (0.0-0.2) 03/24/19 09:35 Total Counted 100 03/13/19 20:00 Seg Neutrophils % 78.2 % (42-78) H 03/24/19 09:35 Seg Neuts % (Manual) 90 % (42-78) H 03/13/19 20:00 Lymphocytes % (Manual) 3 % (13-45) L 03/13/19 20:00 Monocytes % (Manual) 7 % (3-13) 03/13/19 20:00 Eosinophils % (Manual) 0 % (0-6) 03/13/19 20:00 Basophils % (Manual) 0 % (0-2) 03/13/19 20:00 Abs Neuts (Manual) 7.8 10^3/uL (1.7-8.2) 03/13/19 20:00 Abs Lymphs (Manual) 0.3 10^3/uL (0.5-4.7) L 03/13/19 20:00 Abs Monocytes (Manual) 0.6 10^3/uL (0.1-1.4) 03/13/19 20:00 Absolute Eos (Manual) 0.0 10^3/uL (0.0-0.6) 03/13/19 20:00 Abs Basophils (Manual) 0.0 10^3/uL (0.0-0.2) 03/13/19 20:00 Platelet Comment ADEQUATE 03/13/19 20:00 Anisocytosis SLIGHT 03/13/19 20:00 Macrocytosis 1+ 03/13/19 20:00 Retic Count (auto) 0.53 % (0.66-2.85) L 03/13/19 20:00 PT 13.3 SEC (11.4-15.4) 03/24/19 09:35 INR 1.01 03/24/19 09:35 APTT 29.2 SEC (23.5-35.8) 03/22/19 04:54 D-Dimer 5.35 ug/mL (0.00-0.50) H 03/13/19 18:30 Carbonic Acid 1.85 mmol/L (1.05-1.35) H 03/19/19 15:55 HCO3/H2CO3 Ratio 22:1 03/19/19 15:55 ABG pH 7.45 (7.35-7.45) 03/19/19 15:55 ABG pCO2 61.4 mmHg (35-45) H 03/19/19 15:55 ABG pO2 34.1 mmHg (80-100) L* 03/19/19 15:55 ABG HCO3 41.3 mmol/L (20-24) H 03/19/19 15:55 ABG Total CO2 43.2 mmol/L (21-25) H 03/19/19 15:55 ABG O2 Saturation 66.2 % (94-98) L 03/19/19 15:55 ABG Base Excess 13.8 mmol/L 03/19/19 15:55 VBG pH 7.31 (7.30-7.42) 03/13/19 18:30 VBG pCO2 58.2 mmHg (35-63) 03/13/19 18:30 VBG HCO3 28.6 mmol/L (20-32) 03/13/19 18:30 VBG Base Excess 0.6 mmol/L 03/13/19 18:30 FiO2 21% 03/19/19 15:55 Sodium 140.7 mmol/L (137-145) 03/24/19 09:35 Potassium 3.6 mmol/L (3.6-5.0) 03/24/19 09:35 Chloride 104 mmol/L (98-107) 03/24/19 09:35 Carbon Dioxide 30 mmol/L (22-30) 03/24/19 09:35 Anion Gap 7 (5-19) 03/24/19 09:35 BUN 27 mg/dL (7-20) H 03/24/19 09:35 Creatinine 0.42 mg/dL (0.52-1.25) L 03/24/19 09:35 Est GFR ( Amer) > 60 (>60) 03/24/19 09:35 Est GFR (MDRD) Non-Af > 60 (>60) 03/24/19 09:35 Glucose 80 mg/dL (75-110) 03/24/19 09:35 POC Glucose 81 mg/dL (70-110) 03/21/19 07:42 Lactic Acid 1.9 mmol/L (0.7-2.1) 03/13/19 18:30 Calcium 8.6 mg/dL (8.4-10.2) 03/24/19 09:35 Magnesium 2.2 mg/dL (1.6-2.3) 03/16/19 06:29 Iron 26.0 ug/dL (37-170) L 03/13/19 18:30 TIBC 201 ug/dL (250-450) L 03/13/19 18:30 % Saturation 13 % 03/13/19 18:30 Erythropoietin 6.6 mIU/mL (2.6-18.5) 03/14/19 03:15 Ferritin 114.00 ng/mL (11.1-264.0) 03/13/19 18:30 Total Bilirubin 0.8 mg/dL (0.2-1.3) 03/24/19 09:35 Direct Bilirubin 0.3 mg/dL (0.0-0.4) 03/24/19 09:35 Neonat Total Bilirubin Not Reportable 03/24/19 09:35 Neonat Direct Bilirubin Not Reportable 03/24/19 09:35 Neonat Indirect Bili Not Reportable 03/24/19 09:35 AST 21 U/L (14-36) 03/24/19 09:35 ALT 11 U/L (<35) 03/24/19 09:35 Alkaline Phosphatase 55 U/L (38-126) 03/24/19 09:35 Creatine Kinase < 20 U/L (30-135) L 03/21/19 16:04 CK-MB (CK-2) 0.95 ng/mL (<4.55) 03/21/19 09:47 Troponin I 0.040 ng/mL 03/21/19 09:47 NT-Pro-B Natriuret Pep 11134 pg/mL (<125) H 03/13/19 18:30 Total Protein 5.5 g/dL (6.3-8.2) L 03/24/19 09:35 Albumin 2.8 g/dL (3.5-5.0) L 03/24/19 09:35 Vitamin B12 193.0 pg/mL (239-931) L 03/13/19 18:30 Folate 5.17 ng/mL (>2.76) 03/13/19 18:30 TSH 5.66 uIU/mL (0.47-4.68) H 03/13/19 18:30 Urine Color STRAW 03/22/19 06:00 Urine Appearance CLEAR 03/22/19 06:00 Urine pH 8.0 (5.0-9.0) 03/22/19 06:00 Ur Specific [place] 1.003 03/22/19 06:00 Urine Protein NEGATIVE mg/dL (NEGATIVE) 03/22/19 06:00 Urine Glucose (UA) NEGATIVE mg/dL (NEGATIVE) 03/22/19 06:00 Urine Ketones NEGATIVE mg/dL (NEGATIVE) 03/22/19 06:00 Urine Blood NEGATIVE (NEGATIVE) 03/22/19 06:00 Urine Nitrite NEGATIVE (NEGATIVE) 03/22/19 06:00 Urine Bilirubin NEGATIVE (NEGATIVE) 03/22/19 06:00 Urine Urobilinogen NEGATIVE mg/dL (<2.0) 03/22/19 06:00 Ur Leukocyte Esterase NEGATIVE (NEGATIVE) 03/22/19 06:00 Urine WBC (Auto) 0 /HPF 03/22/19 06:00 Urine RBC (Auto) 0 /HPF 03/22/19 06:00 U Hyaline Cast (Auto) 4 /LPF 03/13/19 18:30 Urine Bacteria (Auto) TRACE /HPF 03/13/19 18:30 Squamous Epi Cells Auto 7 /HPF 03/13/19 18:30 Urine Mucus (Auto) RARE /LPF 03/22/19 06:00 Urine Ascorbic Acid NEGATIVE (NEGATIVE) 03/22/19 06:00 Fluid Type PLEURAL 03/16/19 12:00 Fluid Source LUNG 03/16/19 12:00 Fluid Color YELLOW 03/16/19 12:00 Fluid Appearance HAZY 03/16/19 12:00 Fluid Viscosity LIQUID 03/16/19 12:00 Fluid WBC 890 /uL 03/16/19 12:00 Fluid RBC 23 /uL 03/16/19 12:00 Fluid Seg Neutrophils 21 % 03/16/19 12:00 Fluid Lymphocytes 65 % 03/16/19 12:00 Fluid Monocytes 13 % 03/16/19 12:00 Fluid Eosinophils 0 % 03/16/19 12:00 Fluid Basophils 1 % 03/16/19 12:00 Fluid Total Protein 2.1 g/dL (.) 03/16/19 12:00 Urine Opiates Screen NEGATIVE 03/13/19 18:30 Urine Methadone Screen NEGATIVE 03/13/19 18:30 Ur Barbiturates Screen NEGATIVE 03/13/19 18:30 Ur Phencyclidine Scrn NEGATIVE 03/13/19 18:30 Ur Amphetamines Screen NEGATIVE 03/13/19 18:30 U Benzodiazepines Scrn NEGATIVE 03/13/19 18:30 Urine Cocaine Screen NEGATIVE 03/13/19 18:30 U Marijuana (THC) Screen NEGATIVE 03/13/19 18:30 03/13/19 03/14/19 03/14/19 18:30 02:15 02:15 CK-MB (CK-2) 7.00 H 4.67 H Troponin I 0.591 Cancelled NT-Pro-B Natriuret Pep 41531 H 03/14/19 03/14/19 03/21/19 09:45 15:12 05:48 CK-MB (CK-2) 4.28 3.04 0.84 Troponin I 0.472 0.476 0.041 NT-Pro-B Natriuret Pep 03/21/19 03/21/19 05:48 09:47 CK-MB (CK-2) Cancelled 0.95 Troponin I Cancelled 0.040 NT-Pro-B Natriuret Pep Impressions: Lung Scan-VQ NM 03/13/19 00:00 IMPRESSION: Low probability for PE copyright 2011 [employer]- All Rights Reserved Chest X-Ray 03/13/19 18:40 IMPRESSION: Bilateral pleural effusions. Left basilar consolidation. Left apical scarring -nodularity. No pneumothorax identified. Lumbar Spine X-Ray 03/13/19 18:49 IMPRESSION: Minimal compression of the L2 vertebral body, age undetermined. Lumbar Spine CT 03/13/19 22:20 IMPRESSION: Acute fracture of the inferior aspect of L2 with mild loss of height. Bilateral pleural effusions and basilar atelectasis Fluid in the pelvis. Thoracentesis Ultrasound 03/16/19 00:00 IMPRESSION: SUCCESSFUL THORACENTESIS USING ULTRASOUND GUIDANCE. Chest X-Ray 03/16/19 12:15 IMPRESSION: No pneumothorax. Small pleural effusions. Chronic lung changes. Chest X-Ray 03/16/19 14:15 IMPRESSION: No postprocedural pneumothorax. Chest CT 03/17/19 10:00 IMPRESSION: 33 x 38 mm suprahilar mass on the left. Extensive pulmonary emp hysema. Bilateral pleural effusions. Body Scan Nuclear Medicine 03/20/19 08:00 IMPRESSION: There is uptake in the spine associated with compression fractures. There is uptake in the right acetabulum that could be degenerative. There is uptake in the superior pubic ramus that could be posttraumatic. Cannot entirely exclude metastatic disease. Chest X-Ray 03/21/19 03:50 IMPRESSION: Emphysematous lungs with bibasilar airspace opacities and bilateral pleural effusions. Persistent left apical mass. copyright 2010 [employer]- All Rights Reserved Fluoroscopy 03/24/19 00:00 IMPRESSION: Kyphoplasty. Refer to operative note for further information. Lumbar Spine X-Ray 03/24/19 00:00 IMPRESSION: Kyphoplasty. Refer to operative note for further information. Stroke Is this a Stroke Patient?: No Acute Heart Failure - Is this a Heart Failure Patient?: No
== END 2019-03-29 15:45 | DRG 981 ==
LOC: ER 18:06 → EH 03-14 03:32 → 3N 03-14 05:49 → 3S 03-26 17:32
PROVIDERS: ADMIT Internal Medicine; ATTEND Internal Medicine
PROC: 0W9B3ZX Drainage of Left Pleural Cavity, Percutaneous Approach, Diagnostic (ICD-10-PCS; 2019-03-16)
PROC: 0QU03JZ Supplement Lumbar Vertebra with Synthetic Substitute, Percutaneous Approach (ICD-10-PCS; 2019-03-24)
PROC: 0QB03ZX Excision of Lumbar Vertebra, Percutaneous Approach, Diagnostic (ICD-10-PCS; 2019-03-24)
PROC: 0Q503ZZ Destruction of Lumbar Vertebra, Percutaneous Approach (ICD-10-PCS; 2019-03-24)
PROC: 0QS03ZZ Reposition Lumbar Vertebra, Percutaneous Approach (ICD-10-PCS; principal; 2019-03-24 12:00)
PROC: 0DB98ZX Excision of Duodenum, Via Natural or Artificial Opening Endoscopic, Diagnostic (ICD-10-PCS; 2019-03-27)
PROC: 0DB78ZX Excision of Stomach, Pylorus, Via Natural or Artificial Opening Endoscopic, Diagnostic (ICD-10-PCS; 2019-03-27)
DX: J96.01 Acute respiratory failure with hypoxia (principal); L89.893 Pressure ulcer of other site, stage 3; S32.020A Wedge compression fracture of second lumbar vertebra, initial encounter for closed fracture; J90 Pleural effusion, not elsewhere classified; K92.1 Melena; Y92.9 Unspecified place or not applicable; K29.80 Duodenitis without bleeding; D50.0 Iron deficiency anemia secondary to blood loss (chronic); K29.70 Gastritis, unspecified, without bleeding; K57.30 Diverticulosis of large intestine without perforation or abscess without bleeding; Z66 Do not resuscitate; R91.8 Other nonspecific abnormal finding of lung field; W19.XXXA Unspecified fall, initial encounter; I50.9 Heart failure, unspecified; R79.89 Other specified abnormal findings of blood chemistry; D75.1 Secondary polycythemia; E87.5 Hyperkalemia; J44.9 Chronic obstructive pulmonary disease, unspecified; I27.20 Pulmonary hypertension, unspecified; I07.1 Rheumatic tricuspid insufficiency; Z91.041 Radiographic dye allergy status; Z87.891 Personal history of nicotine dependence; I27.81 Cor pulmonale (chronic); Z99.81 Dependence on supplemental oxygen
CPT/HCPCS: 1936; 32555; 36415; 36600; 43239; 45378; 51701; 71045; 71250; 72100; 72110; 72131; 78306; 78582; 80048; 80053; 80307; 81001; 813; 82550; 82553; 82607; 82668; 82728; 82746; 82803; 82962; 83540; 83550; 83605; 83735; 83880; 84157; 84443; 84484; 85025; 85027; 85045; 85379; 85610; 85730; 87040; 87070; 87075; 87205; 88305; 88341; 88342; 89050; 93005; 93010; 93306; 94640; 94660; 96365; 99285; A9540; A9561; A9567; C9113; J0690; J0696; J1940; J2250; J2270; J2704; J3010; J3411; J3420; J3490; J7050; J7620; Q9969

== ENCOUNTER → 2019-08-04 | Outpatient (CLI) | payer MEDICARE ==
--- NOTE | 2019-08-04 19:59 | RADIOLOGY REPORT (SQ) ---
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 TECHNIQUE: Noncontrasted images through the orbits windowed for bone and soft tissue. Additional co lidya and sagittal reconstructed images reviewed. All images stored on PACS. All CT scanners at this facility use dose modulation, iterative reconstruction, and/or weight based d osing when appropriate to reduce radiation dose to as low as reasonably achievable (ALARA). [facility]: Dose Right [facility]: CareDose [facility]: Dose Right [facility]: Teradose 4D [facility]: [email or web address] RADIATION DOSE: mGy. LIMITATIONS: None. FINDINGS: FACIAL BONES: No fracture or bone lesion. ORBITS: Intact. No fracture. Symmetric intact globes and retroorbital soft tissues. PARANASAL SINUSES: There is mucosal thickening in the right maxillary sinus and in the right sphenoid sinus. There is opacification of a couple of the ethmoid air cells. No nasal polyps. Maxillary sinu s outlets are patent. SOFT TISSUES: No mass or edema. INFERIOR BRAIN: Limited view. No acute findings. OTHER: The right mastoid air cells are opacified. There is fluid in the middle ear. The left mastoi d air cells are unremarkable. IMPRESSION: 1. Right otitis media with opacification of the right mastoid air cells. Correlate for mastoiditis. 2. Sinus disease as described. TECHNICAL DOCUMENTATION: JOB ID: [id number] Quality ID # [id number]: Final reports with documentation of one or more dose reduction techniques (e.g., Au tomated exposure control, adjustment of the mA and/or kV according to patient size, use of iterative reconstruction technique) 2010 [employer]- All Rights Reserved Reading location - IP/workstation name: [email or web address]
== END ==
LOC: RAD 13:57
PROVIDERS: ATTEND Family Medicine
DX: H66.91 Otitis media, unspecified, right ear (principal); H70.91 Unspecified mastoiditis, right ear
CPT/HCPCS: 70480